=== PATIENT | male | born 1950 | race Caucasian/White ===

== ENCOUNTER 2017-05-11 08:22 | Outpatient (CLI) | payer MEDICARE, MEDICAID ==
--- NOTE | 2017-05-11 15:54 | NM ---
NUCLEAR MEDICINE Suzan SCAN BRAIN: 05/11/17 HISTORY: 67-year-old male with tremor, Parkinsonism. TECHNIQUE: Patient was given p.o. 130 mg of potassium Iodide one hour prior to Ioflupane injection. 4.7 millicur ies of I-123 Ioflupane was injected IV. Axial SPECT images of the brain were obtained. FINDINGS: There is normal, symmetrical uptake in the bilateral striatum, including both caudate nuclei and puta frederic. IMPRESSION: Normal. No evidence of Parkinson's disease. POS: [facility]
== END 2017-05-11 08:23 | disposition home or self-care (01) ==
LOC: NM 08:22
PROVIDERS: ATTEND Psychiatry & Neurology Neurology
DX: G20 Parkinson's disease (principal)
CPT/HCPCS: 78607; A9584

== ENCOUNTER 2017-06-09 21:00 | Emergency (ER) | payer MEDICARE, MEDICAID ==
[2017-06-09 21:40] LABS: #Basophils 0.1 thou/uL (0.0-0.2); #Eosinphils 0.2 thou/uL (0.0-0.7); #Lymphocytes 1.9 thou/uL (1.20-3.40); #Monocytes 0.7 thou/uL (0.11-0.59); #Neutrophils 3.3 thou/uL (1.40-6.50); %Basophils 0.9 % (0.0-1.0); %Eosinophils 3.8 % (0.0-10.0); %Lymphocytes 30.8 % (21.0-51.0); %Monocytes 10.8 % (0.0-10.0); %Neutrophils 53.6 % (42.0-75.0); Hemoglobin 13.4 g/dL (14.0-18.0); Mean Corpuscular HGB CONC 35.4 g/dL (32.0-36.0); Mean Corpuscular Hemoglobin 35.4 pg (27.0-31.0); Mean Platelet Volume 7.8 fL (7.4-10.4); Platelet Count 184 thou/uL (130-400); RBC Distribution Width 12.4 % (11.5-14.5); Red Blood Cell (RBC) Count 3.77 mill/uL (4.70-6.10); White Blood Cell (WBC) Count 6.2 thou/uL (4.8-10.8)
[2017-06-09 22:01] LABS: ALT (SGPT) 11 U/L (8-55); AST (SGOT) 19 U/L (5-34); Albumin 3.5 g/dL (3.4-4.8); Alkaline Phosphatase 92 U/L (40-150); Anion Gap 16 mmol/L (10-20); BUN (Urea Nitrogen) 25 mg/dL (8.4-25.7); Bilirubin, Total 0.3 mg/dL (0.2-1.2); Calc. Creatinine Clearance 0 mL/min (70-130); Calcium 8.8 mg/dL (7.8-10.44); Carbon Dioxide 23 mmol/L (23-31); Chloride 106 mmol/L (98-107); Estimated GFR-MDRD Greater than 90; Globulin 3.4 g/dL (2.4-3.5); Glucose 153 mg/dL (80-115); Lipase 43 U/L (8-78); Potassium 4.5 mmol/L (3.5-5.1); Protein, Total 6.9 g/dL (5.8-8.1); Sodium 140 mmol/L (136-145)
[2017-06-09 22:04] LABS: Troponin I Less than 0.010 ng/mL (< 0.028)
[2017-06-09] MEDS ORDERED: Ondansetron ODT 4 MG TAB ONE (22:32)
[2017-06-09 22:42] LABS: Bilirubin Negative (Negative); Blood, Urine Small (Negative); Clarity CLEAR (Clear); Glucose, Urine (Dipstick) Negative (Negative); Leukocyte Small (Negative); Nitrite Negative (Negative); Protein, Urine (Dipstick) Negative (Neg-Trace); Specific Gravity, Urine 1.017 (1.002-1.036); Urobilinogen 0.2 mg/dL (0.2-1.0)
[2017-06-09 22:44] LABS: Bacteria/HPF None Seen HPF (None Seen); Hyaline Casts/LPF 0-3 HYALINE CAST LPF (0-3 Hyaline); Pathc Cast-AUWi Flag 0.14 (0-2.49); Squamous Epithelial None Seen HPF (0-3)
== END 2017-06-09 23:40 | disposition home or self-care (01) ==
LOC: ERS 21:00
DX: E11.65 Type 2 diabetes mellitus with hyperglycemia (principal); N30.00 Acute cystitis without hematuria; E78.5 Hyperlipidemia, unspecified; I10 Essential (primary) hypertension; K21.9 Gastro-esophageal reflux disease without esophagitis; J45.909 Unspecified asthma, uncomplicated; F41.9 Anxiety disorder, unspecified; F31.9 Bipolar disorder, unspecified; Z86.73 Personal history of transient ischemic attack (TIA), and cerebral infarction without residual deficits
CPT/HCPCS: 36415; 36416; 80053; 81003; 81015; 83690; 84484; 85025; 87077; 87086; 87186; 99285; Q0162

== ENCOUNTER 2017-07-25 08:57 | Outpatient (CLI) | payer MEDICARE, MEDICAID | END 2017-07-25 08:58 | disposition home or self-care (01) | LOC: BICULT 08:57 | PROVIDERS: ATTEND Urology | DX: N31.9 Neuromuscular dysfunction of bladder, unspecified (principal); N28.89 Other specified disorders of kidney and ureter; Z96.0 Presence of urogenital implants | CPT/HCPCS: 76770 ==

== ENCOUNTER 2017-08-29 10:29 | Outpatient (CLI) | payer MEDICARE, MEDICAID ==
[2017-08-29 11:01] LABS: #Basophils 0.1 thou/uL (0.0-0.2); #Eosinphils 0.1 thou/uL (0.0-0.7); #Lymphocytes 1.5 thou/uL (1.20-3.40); #Monocytes 0.5 thou/uL (0.11-0.59); #Neutrophils 4.7 thou/uL (1.40-6.50); %Basophils 0.8 % (0.0-1.0); %Eosinophils 0.9 % (0.0-10.0); %Lymphocytes 22.1 % (21.0-51.0); %Monocytes 7.1 % (0.0-10.0); %Neutrophils 69.1 % (42.0-75.0); Hemoglobin 13.3 g/dL (14.0-18.0); Mean Corpuscular HGB CONC 34.7 g/dL (32.0-36.0); Mean Corpuscular Hemoglobin 33.6 pg (27.0-31.0); Mean Corpuscular Volume 96.9 fL (78.0-98.0); Mean Platelet Volume 6.9 fL (7.4-10.4); Platelet Count 245 thou/uL (130-400); RBC Distribution Width 11.8 % (11.5-14.5); Red Blood Cell (RBC) Count 3.95 mill/uL (4.70-6.10); White Blood Cell (WBC) Count 6.8 thou/uL (4.8-10.8)
[2017-08-29 11:20] LABS: Anion Gap 13 mmol/L (10-20); BUN (Urea Nitrogen) 18 mg/dL (8.4-25.7); Calc. Creatinine Clearance 0 mL/min (70-130); Calcium 9.7 mg/dL (7.8-10.44); Carbon Dioxide 26 mmol/L (23-31); Chloride 103 mmol/L (98-107); Estimated GFR-MDRD Greater than 90; Glucose 182 mg/dL (80-115); Potassium 3.9 mmol/L (3.5-5.1); Sodium 138 mmol/L (136-145)
== END 2017-08-29 10:30 | disposition home or self-care (01) ==
LOC: ULT 10:29 → EKG 10:30
PROVIDERS: ATTEND Urology
DX: N31.9 Neuromuscular dysfunction of bladder, unspecified (principal)
CPT/HCPCS: 80048; 85025; 93005; 93010

== ENCOUNTER 2017-10-11 06:59 | Day surgery (SDC) | payer MEDICARE, MEDICAID ==
[2017-10-11] MEDS ORDERED: Cefepime 1 GM in Sodium Chloride 0.9% 100 ML IVPB SCH (07:45)
[2017-10-11] MEDS ORDERED: Fentanyl 100 MCG/2 ML VIAL ONE (07:57)
[2017-10-11] MEDS ORDERED: Sodium Chloride 0.9% 40 ML ONE (07:57)
[2017-10-11] MEDS ORDERED: HYDROcodone/Acetaminophen 5/325 mg Tablet ONE (09:44)
--- NOTE | 2017-10-11 14:26 | OP ---
DATE OF PROCEDURE: 10/11/2017. PREOPERATIVE DIAGNOSIS: Neurogenic bladder with retention and incontinence. POSTOPERATIVE DIAGNOSIS: Neurogenic bladder with retention and incontinence. PROCEDURE PERFORMED: Cystoscopy with Botox injection 300 units. Change of SPT. SURGEON: Christina Fairbanks M.D. ANESTHESIA: IV sedation. COMPLICATIONS: None. ESTIMATED BLOOD LOSS: Minimal. SPECIMENS: None. FINDINGS: A 300 units placed with 100 units placed in the detrusor itself. Drain remaining from the procedure was change of SP tube: 18 Senegalese two-way. INDICATIONS: The patient is a 67-year-old male who is followed in the office for a neurogenic bladder, already on SP tube when he came to me and was doing well until he had increased leakage. Urodynamics was performed, which revealed a low capacity spontaneously paulie bladder once 100 mL was filled, but he did not have significantly high pressures. Despite being on 30 mg of oxybutynin , he still has significant leakage requiring multiple pads a day, so he was set up for Botox. DESCRIPTION OF PROCEDURE: The patient was brought into the room by Anesthesia, laid on the table in supine position. After receiving IV sedation, his legs were placed in lithotomy and his perineum was prepped and draped in sterile fashion. Using a 17-Senegalese cystoscope, the urethra was traversed and the bladder inspected. The SP tube balloon was noted and the catheter itself was clamped, filling occurred, but not a significant amount was able to be instilled without having some agitation from the patient. A total of 300 units of Botox were used in 3 separate 10 mL syringes. 1 mL of solution was injected under the mucosa at a time. Ten injections were placed in the detrusor and 20 more were placed from left to right along the posterior bladder wall, encompassing the majority of the bladder itself. A 5 mL saline was used to flush the last of the 10 mL in the syringe out and into the submucosa. At this point, the larger cystoscope was placed back in to irrigate the bladder of a small amount of clot. Then it was removed in its entirety. Attention was then turned to the SP tube where it was prepped and removed. An 18 Senegalese Reyna catheter was placed in for the SP tube itself. The patient was then awakened and transferred to PACU in stable condition. [facility]
== END 2017-10-11 10:40 | disposition home or self-care (01) ==
LOC: SDC 06:59
PROVIDERS: ATTEND Urology
PROC: 3E0K8GC Introduction of Other Therapeutic Substance into Genitourinary Tract, Via Natural or Artificial Opening Endoscopic (ICD-10-PCS; principal; 2017-10-11)
DX: N31.9 Neuromuscular dysfunction of bladder, unspecified (principal); N39.498 Other specified urinary incontinence; R33.9 Retention of urine, unspecified; J45.909 Unspecified asthma, uncomplicated; K21.9 Gastro-esophageal reflux disease without esophagitis; F79 Unspecified intellectual disabilities; F41.8 Other specified anxiety disorders; G20 Parkinson's disease; F02.80 Dementia in other diseases classified elsewhere, unspecified severity, without behavioral disturbance, psychotic disturbance, mood disturbance, and anxiety; E11.9 Type 2 diabetes mellitus without complications; Z86.73 Personal history of transient ischemic attack (TIA), and cerebral infarction without residual deficits; Z79.82 Long term (current) use of aspirin; Z79.4 Long term (current) use of insulin; Z79.899 Other long term (current) drug therapy; Z88.0 Allergy status to penicillin
CPT/HCPCS: 52287; J0585; 36416; A4216; J0131; J0692; J3010; J7050

== ENCOUNTER 2017-11-20 19:53 | Emergency (ER) | payer MEDICARE, MEDICAID ==
[~2017-11-20 19:53] MED LIST: ISOVUE-370 76%-LOCM 1 ML ONE
[2017-11-20 20:15] LABS: #Basophils 0.1 thou/uL (0.0-0.2); #Eosinphils 0.1 thou/uL (0.0-0.7); #Monocytes 0.6 thou/uL (0.11-0.59); #Neutrophils 4.9 thou/uL (1.40-6.50); %Basophils 1.1 % (0.0-1.0); %Eosinophils 1.3 % (0.0-10.0); %Lymphocytes 26.1 % (21.0-51.0); %Monocytes 7.2 % (0.0-10.0); %Neutrophils 64.3 % (42.0-75.0); Hemoglobin 13.2 g/dL (14.0-18.0); Mean Corpuscular HGB CONC 32.8 g/dL (32.0-36.0); Mean Corpuscular Hemoglobin 31.6 pg (27.0-31.0); Mean Corpuscular Volume 96.4 fL (78.0-98.0); Mean Platelet Volume 7.3 fL (7.4-10.4); Platelet Count 264 thou/uL (130-400); RBC Distribution Width 12.2 % (11.5-14.5); Red Blood Cell (RBC) Count 4.17 mill/uL (4.70-6.10); White Blood Cell (WBC) Count 7.6 thou/uL (4.8-10.8)
--- NOTE | 2017-11-20 20:21 | CT ---
HEAD CT WITHOUT CONTRAST: 11/20/2017 HISTORY: Stroke protocol. Left-sided weakness. COMPARISON: 03/12/2014 TECHNIQUE: Serial axial CT imaging at 5 mm intervals, from the vertex through the skull base, without contrast. FINDINGS: The imaged paranasal sinuses and mastoid air cells demonstrate hypoplastic, opacified, right-sided ma stoid air cells, a stable finding. No displaced calvarial fracture. No intracranial hemorrhage, mid line shift, mass effect, or ventricular enlargement. IMPRESSION: Stable head CT. No acute findings. Results called to Dr. Orourke at 7:58 p.m. on 11/20/2017. CODE CR POS: [facility]
[2017-11-20 20:24] LABS: PTT 28.5 SEC (22.9-36.1); Prothrombin Time 13.6 SEC (12.0-14.7)
--- NOTE | 2017-11-20 20:27 | CT ---
CT ANGIOGRAM HEAD AND NECK: 11/20/2017 HISTORY: Left-sided weakness. COMPARISON: None. TECHNIQUE: Serial axial CT imaging is obtained at 1.25 mm intervals, from the lung apices through the upper ches t, with IV contrast, using a CT angiogram protocol. Coronal and sagittal 3D reformatted imaging obta ined. FINDINGS: The visualized lung apices appear unremarkable. The retroantral fat and the parapharyngeal fat appears clear bilaterally. There is motion artifact, which limits assessment at the level of the skull base. The parotid and the submandibular glands appear grossly unremarkable. The tonsillar pillars, epiglot tis, pre-epiglottic fat, hyoid bone, thyroid cartilage, cricoid cartilage, and thyroid gland appear u nremarkable. No lymphadenopathy is seen within the neck. There is a bovine arch noted. No hemodynamically significant stenosis is seen at the level of the gr eat vessel origins. Right and left vertebral artery origins appear unremarkable. Bilateral vertebral arteries are unremarkable. No hemodynamically significant stenosis on the basis of NASCET criteria is seen involving the interna l or common carotid artery on either side. Portions of the distal cervical and petrous segment of th e bilateral internal carotid arteries is limited in assessment, secondary to motion artifact. The supraclinoid and cavernous segment of the bilateral internal carotid arteries appears unremarkabl e. The A1 segment, the region of the anterior communicating artery, and the distal LISA branches appear u nremarkable. The M1 segment and the ICA bifurcation appear within normal limits bilaterally. No central arterial occlusion, saccular aneurysm, or high grade stenosis is seen involving the anteri or or posterior circulation. The basilar artery and its branches are patent. Bilateral posterior ce rebral arteries appear patent. Osseous structures demonstrate no acute findings. IMPRESSION: Grossly unremarkable CT angiogram of the head and neck, as detailed above. Results called to Dr. Orourke at 8:20 p.m. on 11/20/2017. CODE CR POS: [facility]
[2017-11-20 20:29] LABS: ALT (SGPT) 14 U/L (8-55); AST (SGOT) 17 U/L (5-34); Alkaline Phosphatase 90 U/L (40-150); Anion Gap 14 mmol/L (10-20); BUN (Urea Nitrogen) 19 mg/dL (8.4-25.7); Bilirubin, Total 0.4 mg/dL (0.2-1.2); Calc. Creatinine Clearance 0 mL/min (70-130); Calcium 9.6 mg/dL (7.8-10.44); Carbon Dioxide 22 mmol/L (23-31); Chloride 105 mmol/L (98-107); Estimated GFR-MDRD Greater than 90; Globulin 2.8 g/dL (2.4-3.5); Glucose 145 mg/dL (80-115); Potassium 4.1 mmol/L (3.5-5.1); Protein, Total 6.8 g/dL (5.8-8.1); Sodium 137 mmol/L (136-145)
[2017-11-20 20:33] LABS: CKMB 1.4 ng/mL (0-6.6); Troponin I Less than 0.010 ng/mL (< 0.028)
--- NOTE | 2017-11-20 21:02 | RAD ---
FRONTAL RADIOGRAPH CHEST: 11/20/2017 HISTORY: Difficulty breathing. COMPARISON: 03/12/2014 FINDINGS: The lungs are clear. The heart and mediastinal contours appear within normal limits. IMPRESSION: No acute findings. POS: [facility]
[2017-11-20] MEDS ORDERED: Morphine 2 MG/ML SYRINGE ONE (21:36)
== END 2017-11-20 22:55 | disposition home or self-care (01) ==
LOC: ERS 19:53
DX: R53.1 Weakness (principal); N40.0 Benign prostatic hyperplasia without lower urinary tract symptoms; E78.5 Hyperlipidemia, unspecified; E11.9 Type 2 diabetes mellitus without complications; I10 Essential (primary) hypertension; K21.9 Gastro-esophageal reflux disease without esophagitis; J45.909 Unspecified asthma, uncomplicated; Z86.73 Personal history of transient ischemic attack (TIA), and cerebral infarction without residual deficits; F41.9 Anxiety disorder, unspecified; F31.9 Bipolar disorder, unspecified
CPT/HCPCS: 36416; 70450; 70496; 70498; 71045; 80053; 82553; 83880; 84484; 85025; 85379; 85610; 85730; 93005; 96360; J2270

== ENCOUNTER 2018-01-20 19:18 | Emergency (ER) | payer MEDICARE, MEDICAID ==
[2018-01-20 20:26] LABS: Anion Gap 11 mmol/L (10-20); BUN (Urea Nitrogen) 16 mg/dL (8.4-25.7); Calc. Creatinine Clearance 0 mL/min (70-130); Calcium 9.6 mg/dL (7.8-10.44); Carbon Dioxide 26 mmol/L (23-31); Chloride 104 mmol/L (98-107); Estimated GFR-MDRD 87; Glucose 121 mg/dL (80-115); Potassium 4.4 mmol/L (3.5-5.1); Sodium 137 mmol/L (136-145)
[2018-01-20 21:49] LABS: Bilirubin Negative (Negative); Blood, Urine Negative (Negative); Clarity CLEAR (Clear); Glucose, Urine (Dipstick) Negative (Negative); Leukocyte Large (Negative); Nitrite Positive (Negative); Protein, Urine (Dipstick) Negative (Neg-Trace); Specific Gravity, Urine 1.003 (1.002-1.036); Urobilinogen 0.2 mg/dL (0.2-1.0); pH, Urine 7.5 (5.0-9.0)
[2018-01-20 21:51] LABS: Bacteria/HPF None Seen HPF (None Seen); Hyaline Casts/LPF 0-3 HYALINE CAST LPF (0-3 Hyaline); RBC/HPF 0-3 HPF (0-3); Squamous Epithelial 0-3 HPF (0-3)
== END 2018-01-20 22:41 | disposition home or self-care (01) ==
LOC: ERS 19:18
DX: T83.9XXA Unspecified complication of genitourinary prosthetic device, implant and graft, initial encounter (principal); L30.9 Dermatitis, unspecified; E78.5 Hyperlipidemia, unspecified; E11.9 Type 2 diabetes mellitus without complications; I10 Essential (primary) hypertension; K21.9 Gastro-esophageal reflux disease without esophagitis; J45.909 Unspecified asthma, uncomplicated; F41.9 Anxiety disorder, unspecified; Z86.73 Personal history of transient ischemic attack (TIA), and cerebral infarction without residual deficits; Z79.82 Long term (current) use of aspirin; Z79.4 Long term (current) use of insulin; Z79.899 Other long term (current) drug therapy
CPT/HCPCS: 36415; 80048; 81003; 81015; 87077; 87086; 87186; 99283

== ENCOUNTER 2018-08-09 14:18 | Emergency (ER) | payer MEDICARE, MEDICAID ==
[2018-08-09 14:51] LABS: Bilirubin Negative (Negative); Blood, Urine Small (Negative); Clarity Clear (Clear); Glucose, Urine (Dipstick) Negative (Negative); Leukocyte Moderate (Negative); Nitrite Positive (Negative); Protein, Urine (Dipstick) Negative (Neg-Trace); Urobilinogen 0.2 mg/dL (0.2-1.0)
[2018-08-09 15:01] LABS: Amphetamine Not Detected (NotDetected); Barbiturates Screen Not Detected (NotDetected); Benzodiazepine Screen Not Detected (NotDetected); Cocaine Metabolite Screen Not Detected (NotDetected); Medtox Control Line Valid? VALID (VALID); Medtox Reader # READER 4; Methadone Not Detected (NotDetected); Methamphetamine Not Detected (NotDetected); Opiate Screen Not Detected (NotDetected); Oxycodone Screen Not Detected (NotDetected); Phencyclidine (PCP) Not Detected (NotDetected); THC/Cannabinoid Screen Not Detected (NotDetected); Tricyclic Screen Not Detected (NotDetected)
--- NOTE | 2018-08-09 15:01 | RAD ---
PORTABLE CHEST 1 VIEW: DATE: 08/09/2018. TIME: 2:46 p.m. History Altered mental status. FINDINGS/IMPRESSION: Comparison is made with the exam of 11/20/2017. The heart size is borderline. The lungs are expanded without lobar consolidation, pneumothoraces, fr ank pulmonary edema, or large effusions. POS: [facility]
[2018-08-09 15:03] LABS: #Basophils 0.1 thou/uL (0.0-0.2); #Eosinphils 0.1 thou/uL (0.0-0.7); #Lymphocytes 1.3 thou/uL (1.20-3.40); #Monocytes 0.5 thou/uL (0.11-0.59); #Neutrophils 3.6 thou/uL (1.40-6.50); %Basophils 0.9 % (0.0-1.0); %Eosinophils 2.3 % (0.0-10.0); %Monocytes 8.6 % (0.0-10.0); %Neutrophils 65.2 % (42.0-75.0); Mean Corpuscular HGB CONC 33.6 g/dL (32.0-36.0); Mean Corpuscular Hemoglobin 32.3 pg (27.0-31.0); Mean Corpuscular Volume 96.2 fL (78.0-98.0); Platelet Count 225 thou/uL (130-400); RBC Distribution Width 12.2 % (11.5-14.5); Red Blood Cell (RBC) Count 3.72 mill/uL (4.70-6.10); White Blood Cell (WBC) Count 5.6 thou/uL (4.8-10.8)
[2018-08-09 15:08] LABS: Bacteria/HPF 4+ HPF (None Seen); Hyaline Casts/LPF 0-3 HYALINE CAST LPF (0-3 Hyaline); Squamous Epithelial 0-3 HPF (0-3)
[2018-08-09] MEDS ORDERED: Ondansetron PF 4 MG/2 ML Vial ONE (15:09)
[2018-08-09 15:23] LABS: Acetaminophen Less than 6.0 mcg/mL (10.0-30.0); Alcohol Less than 10 mg/dL (Less than 10); Salicylate Less than 8.0 mg/dL (15.0-30.0)
[2018-08-09 15:25] LABS: ALT (SGPT) 16 U/L (8-55); AST (SGOT) 20 U/L (5-34); Albumin 3.7 g/dL (3.4-4.8); Alkaline Phosphatase 94 U/L (40-150); Anion Gap 9 mmol/L (10-20); BUN (Urea Nitrogen) 17 mg/dL (8.4-25.7); Bilirubin, Total 0.4 mg/dL (0.2-1.2); CK (CPK) 168 U/L (30-200); Calc. Creatinine Clearance 0 mL/min (70-130); Calcium 8.9 mg/dL (7.8-10.44); Carbon Dioxide 29 mmol/L (23-31); Chloride 108 mmol/L (98-107); Estimated GFR-MDRD Greater than 90; Globulin 2.6 g/dL (2.4-3.5); Glucose 114 mg/dL (80-115); Lipase 41 U/L (8-78); Potassium 3.7 mmol/L (3.5-5.1); Protein, Total 6.3 g/dL (5.8-8.1); Sodium 142 mmol/L (136-145)
--- NOTE | 2018-08-11 12:56 | EKG ---
Test Reason : AMS Blood Pressure : / mmHG Vent. Rate : 087 BPM Atrial Rate : 087 BPM P-R Int : 146 ms QRS Dur : 086 ms QT Int : 388 ms P-R-T Axes : 049 058 038 degrees QTc Int : 466 ms Normal sinus rhythm Normal ECG Confirmed by NIRMALA KIDD, TERRELL ([id number]), state editor LAURIE BOWEN ([id number]) on 08/11/2018 12:56:07 PM Referred By: Confirmed By:TERRELL SILVESTRE MD
== END 2018-08-09 15:50 | disposition home or self-care (01) ==
LOC: ERS 14:18
DX: E86.0 Dehydration (principal); R55 Syncope and collapse; N39.0 Urinary tract infection, site not specified; E78.5 Hyperlipidemia, unspecified; E11.9 Type 2 diabetes mellitus without complications; I10 Essential (primary) hypertension; J45.909 Unspecified asthma, uncomplicated; K21.9 Gastro-esophageal reflux disease without esophagitis; Z86.73 Personal history of transient ischemic attack (TIA), and cerebral infarction without residual deficits; Z79.82 Long term (current) use of aspirin; Z79.899 Other long term (current) drug therapy; Z79.4 Long term (current) use of insulin
CPT/HCPCS: 36415; 71045; 80053; 80306; 80307; 81003; 81015; 82010; 82140; 82550; 83690; 83880; 84484; 85025; 87077; 87086; 87186; 93005; 96361; 96374; J2405

== ENCOUNTER 2018-09-26 14:06 | Outpatient (CLI) | payer MEDICARE, MEDICAID ==
[2018-09-26 16:32] LABS: Mean Corpuscular HGB CONC 34.1 g/dL (32.0-36.0); Mean Corpuscular Hemoglobin 32.9 pg (27.0-31.0); Mean Corpuscular Volume 96.3 fL (78.0-98.0); Mean Platelet Volume 7.3 fL (7.4-10.4); Platelet Count 250 thou/uL (130-400); RBC Distribution Width 12.2 % (11.5-14.5); Red Blood Cell (RBC) Count 3.96 mill/uL (4.70-6.10); White Blood Cell (WBC) Count 7.9 thou/uL (4.8-10.8)
[2018-09-26 16:33] LABS: Prothrombin Time 13.5 SEC (12.0-14.7)
[2018-09-26 16:34] LABS: PTT 29.3 SEC (22.9-36.1)
[2018-09-26 16:48] LABS: Anion Gap 12 mmol/L (10-20); BUN (Urea Nitrogen) 23 mg/dL (8.4-25.7); Calc. Creatinine Clearance 0 mL/min (70-130); Calcium 9.3 mg/dL (7.8-10.44); Carbon Dioxide 28 mmol/L (23-31); Chloride 105 mmol/L (98-107); Estimated GFR-MDRD 86; Glucose 109 mg/dL (80-115); Sodium 141 mmol/L (136-145)
== END 2018-09-26 14:07 | disposition home or self-care (01) ==
LOC: LABBT 14:06
PROVIDERS: ATTEND Urology
DX: Z01.812 Encounter for preprocedural laboratory examination (principal); N39.45 Continuous leakage; N40.1 Benign prostatic hyperplasia with lower urinary tract symptoms; N31.9 Neuromuscular dysfunction of bladder, unspecified
CPT/HCPCS: 80048; 85027; 85610; 85730

== ENCOUNTER 2018-11-21 14:20 | Outpatient (CLI) | payer MEDICARE, MEDICAID ==
--- NOTE | 2018-11-21 15:21 | CT ---
Exam: CT INTERNAL AUDITORY CANALS WITHOUT CONTRAST: HISTORY: Right ear hearing loss. Cholesteatoma. COMPARISON: None. FINDINGS: Visualized brain parenchyma is grossly unremarkable. Visualized orbits are unremarkable Adequate aeration of visualized paranasal sinuses. Visualized upper aerodigestive tract is unremarkable. Right IAC/temporal bone: The internal auditory canal, cochlea, vestibule and semicircular canals have an appropriate appearance and configuration. The vestibular aqueduct is difficult to appreciate but does not appear to be enlarged. There is sclerosis of the right temporal bone with decreased aera gordo mastoid air cells. Sclerosis and decreased mastoid air cells are likely due to remote/chronic infection. Residual air cells in the right temporal bone are opacified. There is near complete opacif ication of the middle ear. Normal-appearing malleus and incus are not appreciated. Stapedial footplate appears to be in the correct location but there may be an erosive component. There is opaci fication of the epitympanum. Abnormal hypodensity in Prussak's space with blunting of the scutum. There is dehiscence versus demineralization of the tegmen tympani and tegmen mastoideum. There is thi ckening and retraction of the tympanic membrane. External auditory canal is patent. Left IAC/temporal bone: The internal auditory canal, cochlea, vestibule and semicircular canals have an appropriate appearance and configuration. Vestibular aqueduct is difficult to appreciate but does not appear to be enlarged. Adequate aeration of the middle ear. Ossicular chain is intact. A sta pedial footplate is appropriately located. Tegmen tympani and tegmen mastoideum are intact. Scutum is sharp. No abnormal hypodensity in Prussak's space. There is some sclerosis of the left temporal omari ne with partial opacification of the residual mastoid air cells. Slight retraction of the tympanic membrane. External auditory canal is patent. IMPRESSION: 1. Significant opacification of the right middle ear with dehiscence/demineralization of the tegmen t ympani and tegmen mastoideum. 2. Abnormal appearance of the right ossicular chain, likely due to remote bouts of infection/inflamma tion. Correlate for possible conductive hearing loss. 3. Right greater the left tympanic membrane thickening and retraction. Transcribed Date/Time: 11/21/2018 3:31 PM
== END 2018-11-21 14:21 | disposition home or self-care (01) ==
LOC: BICCT 14:20
PROVIDERS: ATTEND Specialist
DX: H71.90 Unspecified cholesteatoma, unspecified ear (principal); H74.8X1 Other specified disorders of right middle ear and mastoid; H73.893 Other specified disorders of tympanic membrane, bilateral
CPT/HCPCS: 70480

== ENCOUNTER 2019-03-08 18:18 | Emergency (ER) | payer MEDICARE, MEDICAID ==
[2019-03-08 19:54] LABS: Bacteria/HPF 4+ HPF (None Seen); Bilirubin Negative (Negative); Blood, Urine 2+ (Negative); Clarity Extra Turbid (Clear); Glucose, Urine (Dipstick) Greater than 1000 mg/dL (Negative); Leukocyte 500 Leu/uL (Negative); Nitrite 2+ (Negative); Protein, Urine (Dipstick) 300 mg/dL (Neg-Trace); RBC/HPF Greater than 50 HPF (0-3); Squamous Epithelial 0-3 HPF (0-3); Urobilinogen Normal mg/dL (Less than 2)
[2019-03-08 20:03] LABS: #Basophils 0.1 thou/uL (0.0-0.2); #Lymphocytes 1.6 thou/uL (1.20-3.40); #Monocytes 0.8 thou/uL (0.11-0.59); #Neutrophils 6.3 thou/uL (1.40-6.50); %Basophils 1.1 % (0.0-1.0); %Eosinophils 0.4 % (0.0-10.0); %Monocytes 8.9 % (0.0-10.0); %Neutrophils 71.6 % (42.0-75.0); Hemoglobin 13.8 g/dL (14.0-18.0); Mean Corpuscular HGB CONC 34.4 g/dL (32.0-36.0); Mean Corpuscular Hemoglobin 32.7 pg (27.0-31.0); Mean Platelet Volume 7.1 fL (7.4-10.4); Platelet Count 284 thou/uL (130-400); RBC Distribution Width 11.5 % (11.5-14.5); Red Blood Cell (RBC) Count 4.22 mill/uL (4.70-6.10); White Blood Cell (WBC) Count 8.7 thou/uL (4.8-10.8)
[2019-03-08 20:05] LABS: Triple Phosphate Crystal 2+ HPF (None Seen)
[2019-03-08 20:25] LABS: ALT (SGPT) 13 U/L (8-55); AST (SGOT) 17 U/L (5-34); Albumin 4.2 g/dL (3.4-4.8); Alkaline Phosphatase 99 U/L (40-110); Anion Gap 16 mmol/L (10-20); BUN (Urea Nitrogen) 26 mg/dL (8.4-25.7); Bilirubin, Total 0.4 mg/dL (0.2-1.2); Calc. Creatinine Clearance 0 mL/min (70-130); Calcium 9.3 mg/dL (7.8-10.44); Carbon Dioxide 22 mmol/L (23-31); Chloride 104 mmol/L (98-107); Estimated GFR-MDRD 73; Glucose 263 mg/dL (80-115); Potassium 3.9 mmol/L (3.5-5.1); Protein, Total 7.2 g/dL (5.8-8.1); Sodium 138 mmol/L (136-145)
[2019-03-08] MEDS ORDERED: Lidocaine 1% PF 5 ML VIAL ONE (20:25)
[2019-03-08] MEDS ORDERED: cefTRIAXone\\ROCEPHIN 1 GM VIAL ONE (20:25)
== END 2019-03-08 20:40 | disposition home or self-care (01) ==
LOC: ERS 18:18
DX: T83.511A Infection and inflammatory reaction due to indwelling urethral catheter, initial encounter (principal); E78.5 Hyperlipidemia, unspecified; E78.00 Pure hypercholesterolemia, unspecified; E11.9 Type 2 diabetes mellitus without complications; I10 Essential (primary) hypertension; K21.9 Gastro-esophageal reflux disease without esophagitis; J45.909 Unspecified asthma, uncomplicated; Z86.73 Personal history of transient ischemic attack (TIA), and cerebral infarction without residual deficits
CPT/HCPCS: 36415; 36416; 80053; 81003; 81015; 85025; 87077; 87086; 87186; 96372; 99284; J0696; J2001

== ENCOUNTER 2019-06-20 14:17 | Outpatient (CLI) | payer MEDICARE, MEDICAID ==
--- NOTE | 2019-06-20 14:53 | RAD ---
Chest one view Abdomen 2 views HISTORY: Chest and abdomen pain. FINDINGS: Cardiac silhouette is magnified by projection. Pulmonary vasculature is unremarkable. Mediastinum is midline with aortic calcification. No confluent airspace consolidation or evidence of free subdiaphragmatic gas. Large amount of stool overlies the right colon. No differential air-fluid levels or evidence of free subdiaphragmatic gas. IMPRESSION : Constipation. No evidence of bowel obstruction. Atherosclerosis.
== END 2019-06-20 14:18 | disposition home or self-care (01) ==
LOC: BICRAD 14:17
PROVIDERS: ATTEND Family Medicine
DX: R10.32 Left lower quadrant pain (principal); R41.0 Disorientation, unspecified; T50.905A Adverse effect of unspecified drugs, medicaments and biological substances, initial encounter; K59.00 Constipation, unspecified; I70.0 Atherosclerosis of aorta
CPT/HCPCS: 74022

== ENCOUNTER 2019-06-22 09:10 | Inpatient (IN) | payer MEDICARE, MEDICAID ==
[2019-06-22] MEDS ORDERED: Iopamidol-370 76% 500 ML 1 ML ONE (09:53)
[2019-06-22] MEDS ORDERED: Bacitracin 1 PK ONE (10:14)
[2019-06-22 10:19] LABS: #Eosinphils 0.1 thou/uL (0.0-0.7); #Lymphocytes 1.4 thou/uL (1.20-3.40); #Monocytes 0.4 thou/uL (0.11-0.59); %Basophils 0.6 % (0.0-1.0); %Monocytes 7.3 % (0.0-10.0); %Neutrophils 67.1 % (42.0-75.0); Hemoglobin 13.4 g/dL (14.0-18.0); Mean Corpuscular HGB CONC 31.9 g/dL (32.0-36.0); Mean Corpuscular Hemoglobin 32.1 pg (27.0-31.0); Mean Platelet Volume 7.6 fL (7.4-10.4); Platelet Count 238 thou/uL (130-400); RBC Distribution Width 12.3 % (11.5-14.5); Red Blood Cell (RBC) Count 4.18 mill/uL (4.70-6.10); White Blood Cell (WBC) Count 5.9 thou/uL (4.8-10.8)
--- NOTE | 2019-06-22 10:32 | RAD ---
PORTABLE CHEST 1 VIEW: Date: 06/22/2019 Time: 0950 hours HISTORY: Abdominal pain. FINDINGS: Comparison made with exam of 06/20/2019. The heart size is normal. The aorta is tortuous. The lungs are well expanded without lobar consolidat ion, pneumothoraces, or pleural effusions. IMPRESSION: No acute process. POS: [facility]
[2019-06-22 10:33] LABS: ALT (SGPT) 11 U/L (8-55); AST (SGOT) 14 U/L (5-34); Alkaline Phosphatase 86 U/L (40-110); Anion Gap 14 mmol/L (10-20); BUN (Urea Nitrogen) 12 mg/dL (8.4-25.7); Bilirubin, Total 0.4 mg/dL (0.2-1.2); Calc. Creatinine Clearance 0 mL/min (70-130); Calcium 9.1 mg/dL (7.8-10.44); Carbon Dioxide 22 mmol/L (23-31); Chloride 106 mmol/L (98-107); Estimated GFR-MDRD Greater than 90; Globulin 2.8 g/dL (2.4-3.5); Glucose 92 mg/dL (80-115); Potassium 4.3 mmol/L (3.5-5.1); Protein, Total 6.8 g/dL (5.8-8.1); Sodium 138 mmol/L (136-145)
[2019-06-22 12:17] LABS: Bilirubin Negative (Negative); Blood, Urine Small (Negative); Glucose, Urine (Dipstick) Negative (Negative); Leukocyte Large (Negative); Nitrite Positive (Negative); Protein, Urine (Dipstick) Negative (Neg-Trace); Urobilinogen 0.2 mg/dL (Less than 2)
[2019-06-22 12:18] LABS: Clarity Hazy (Clear)
[2019-06-22 12:31] LABS: Bacteria/HPF 3+ HPF (None Seen); Squamous Epithelial 0-3 HPF (0-3); WBC/HPF 21-50 HPF (0-3)
[2019-06-22] MEDS ORDERED: Vancomycin 1 GM/200 ML BAG ONE (12:47)
--- NOTE | 2019-06-22 13:07 | CT ---
CT ABDOMEN AND PELVIS WITH IV CONTRAST: Date: 06/22/2019 PROVIDED CLINICAL HISTORY: Constipation. FINDINGS: The visualized lung bases are free of significant opacity. Comparison is made with the study dated . The solid abdominal organs demonstrate a normal CT appearance. There is conspicuous colonic fecal retention. There is no evidence for bowel obstruction. No free flu id, free air, or inflammatory fat stranding evident. Suprapubic catheter is again noted within the ur inary bladder, with apparent urinary bladder wall thickening, which may be on the basis of nondistent ion. Scattered vascular calcifications are seen. The osseous structures demonstrate no concerning lyt ic or blastic lesions. IMPRESSION: 1. Conspicuous colonic fecal retention suggesting constipation. 2. Nonspecific urinary bladder wall thickening. Correlate with concerns for cystitis. POS: [facility]
--- NOTE | 2019-06-22 15:14 | PDOC.HHP ---
Hospitalist HPI - History of Present Illness Constipation History of Present Illness: This patient is a 69-year-old male with a history of a developmental disorder. Patient presented to the emergency department. This patient has a history of a developmental delay. His cousin who is his M POA is also his caregiver. She reports that the patient was here 4 months ago with similar symptoms of constipation and abdominal pain. At that time he was started on lactulose twice daily. Since that time he continues to have fairly small firm bowel movements. She reports that he is actually been experiencing some abdominal pain and distention since yesterday. In the past admission it appears as though the constipation was causing some issues of urinary obstruction and hydronephrosis. On this occasion the patient presented to his PCP who has some concerns that there may be some obstruction of the colon causing the constipation issues. He recommended the patient come here for admission. It does not appear that the lactulose has been significantly effective. It is also reported that the patient awoke with a small abscess on the dorsum of his left middle finger. This was at the proximal phalanx. Since that time he has had an extension of erythema extending over the dorsum of the hand. Hospitalist ROS - Review of Systems Constitutional: denies: fever, chills ENT: reports: ear discharge (Right) Gastrointestinal: reports: abdominal pain, constipation. denies: nausea, vomiting All other systems reviewed; all pertinent +/- noted in HPI/Subj Hospitalist History - Past Medical History Psych: reports: Bipolar Musculoskeletal: reports: Chronic low back pain Renal/: reports: Benign prostatic enlarg. Endocrine: reports: Diabetes - Past Surgical History Past Surgical History: reports: Other - Social History Smoking Status: Never smoker Alcohol: reports: None Drugs: reports: none Living Situation: With Family Activity level: uses cane/walker - Exam General Appearance: NAD, awake alert General - other findings: Pleasant and cooperative with the exam. Heart: RRR, no murmur, no gallops, no rubs, normal peripheral pulses Respiratory: CTAB, no wheezes, no rales, no ronchi, normal chest expansion, no tachypnea, normal percussion Gastrointestinal: soft, normal bowel sounds, no palpable masses, tender to palpation (Mid abdomen.), distended Gastrointestinal - other findings: Suprapubic catheter is in place. Appears healthy. Extremities: no cyanosis, no clubbing, no edema Skin: normal turgor Musculoskeletal: normal tone Psychiatric: normal affect Hospitalist Results - Labs Result Diagrams: 06/22/19 10:04 06/22/19 10:04 Lab results: WBC 5.9 thou/uL (4.8-10.8) 06/22/19 10:04 Hgb 13.4 g/dL (14.0-18.0) L 06/22/19 10:04 Hct 42.1 % (42.0-52.0) 06/22/19 10:04 MCV 101.0 fL (78.0-98.0) H 06/22/19 10:04 Plt Count 238 thou/uL (130-400) 06/22/19 10:04 Neutrophils % 67.1 % (42.0-75.0) 06/22/19 10:04 Sodium 138 mmol/L (136-145) 06/22/19 10:04 Potassium 4.3 mmol/L (3.5-5.1) 06/22/19 10:04 Chloride 106 mmol/L (98-107) 06/22/19 10:04 Carbon Dioxide 22 mmol/L (23-31) L 06/22/19 10:04 BUN 12 mg/dL (8.4-25.7) 06/22/19 10:04 Creatinine 0.75 mg/dL (0.7-1.3) 06/22/19 10:04 Glucose 92 mg/dL (80-115) 06/22/19 10:04 Lactic Acid 1.0 mmol/L (0.5-2.2) 06/22/19 10:04 Calcium 9.1 mg/dL (7.8-10.44) 06/22/19 10:04 Total Bilirubin 0.4 mg/dL (0.2-1.2) 06/22/19 10:04 AST 14 U/L (5-34) 06/22/19 10:04 ALT 11 U/L (8-55) 06/22/19 10:04 Alkaline Phosphatase 86 U/L (40-110) 06/22/19 10:04 Serum Total Protein 6.8 g/dL (5.8-8.1) 06/22/19 10:04 Albumin 4.0 g/dL (3.4-4.8) 06/22/19 10:04 Urine Ketones Negative mg/dL (Negative) 06/22/19 12:00 Urine Blood Small (Negative) A 06/22/19 12:00 Urine Nitrite Positive (Negative) A 06/22/19 12:00 Ur Leukocyte Esterase Large (Negative) H 06/22/19 12:00 Urine RBC 4-6 HPF (0-3) A 06/22/19 12:00 Urine WBC 21-50 HPF (0-3) A 06/22/19 12:00 Ur Squamous Epith Cells 0-3 HPF (0-3) 06/22/19 12:00 Urine Bacteria 3+ HPF (None Seen) A 06/22/19 12:00 Hospitalist H&P A/P - Problem (1) Abdominal pain Code(s): R10.9 - UNSPECIFIED ABDOMINAL PAIN Status: Acute Qualifiers: Abdominal location: generalized Qualified Code(s): R10.84 - Generalized abdominal pain (2) Constipation Code(s): K59.00 - CONSTIPATION, UNSPECIFIED Status: Acute Qualifiers: Constipation type: slow transit constipation Qualified Code(s): K59.01 - Slow transit constipation (3) Abscess of finger of left hand Code(s): L02.512 - CUTANEOUS ABSCESS OF LEFT HAND Status: Acute (4) Diabetes Code(s): E11.9 - TYPE 2 DIABETES MELLITUS WITHOUT COMPLICATIONS Status: Acute Qualifiers: Diabetes mellitus type: type 2 Diabetes mellitus complication status: without complication (5) BPH (benign prostatic hyperplasia) Code(s): N40.0 - BENIGN PROSTATIC HYPERPLASIA WITHOUT LOWER URINRY TRACT SYMP Status: Chronic Qualifiers: Lower urinary tract symptom detail: urinary obstruction (6) GERD (gastroesophageal reflux disease) Code(s): K21.9 - GASTRO-ESOPHAGEAL REFLUX DISEASE WITHOUT ESOPHAGITIS Status: Chronic Qualifiers: Esophagitis presence: without esophagitis Qualified Code(s): K21.9 - Gastro -esophageal reflux disease without esophagitis (7) HTN (hypertension) Code(s): I10 - ESSENTIAL (PRIMARY) HYPERTENSION Status: Chronic Qualifiers: Hypertension type: essential hypertension Qualified Code(s): I10 - Essential (primary) hypertension (8) Dysphagia Code(s): R13.10 - DYSPHAGIA, UNSPECIFIED Status: Chronic - Plan Plan: Abdominal pain: Appears to be purely related to the patient's constipation. Constipation: We will give the patient a GoLYTELY prep with one 8 ounce glass every hour until he has a substantial bowel movement. This appears to be related to the patient's slow transit. He did not have a significant response with the lactulose. Suspect we will need to increase the dose significantly. His caregiver indicates that he has used MiraLAX in the past with no success. There is some concern that there could be an obstructive process although it does not appear so at that time. Sounds like the patient's primary care provider requested consultation with GI. We will go ahead and make that consultation based on that. Abscess left finger: Patient has an abscess on the left middle finger. This appears to have started with some folliculitis and now has some cellulitic jacquard loom card changer the dorsum of the hand. Will start clindamycin as the patient is allergic to penicillin. Will ask hand surgery to see the patient as well. BPH with obstruction: Patient has a suprapubic catheter. At this point it appears to be functioning normally. Diabetes: Resume home medication regimen once established. Hypertension: Usual home medications. Chronic dysphagia: Patient is on a regular diet with nectar thick liquids, pured foods, and crushed medications.
[2019-06-22] MEDS ORDERED: GoLYTELY 4,000 ml Bottle PO SCH (16:15)
[2019-06-22] MEDS: Famotidine 20 MG TAB PO SCH (21:07)
[2019-06-22] MEDS: Clindamycin/D5W 900 MG in Premix Bag 1 BAG IVPB SCH (21:09)
[2019-06-23] MEDS: Acetaminophen 325 MG TAB PO PRN ×2 (00:32→09:51)
[2019-06-23] MEDS: Clindamycin/D5W 900 MG in Premix Bag 1 BAG IVPB SCH ×3 (05:45→21:25)
[2019-06-23] MEDS: Famotidine 20 MG TAB PO SCH ×2 (08:51→21:23)
[2019-06-23 14:07] LABS: #Basophils 0.1 thou/uL (0.0-0.2); #Eosinphils 0.2 thou/uL (0.0-0.7); #Monocytes 0.5 thou/uL (0.11-0.59); #Neutrophils 2.7 thou/uL (1.40-6.50); %Basophils 1.3 % (0.0-1.0); %Eosinophils 4.5 % (0.0-10.0); %Lymphocytes 35.8 % (21.0-51.0); %Monocytes 9.5 % (0.0-10.0); %Neutrophils 48.9 % (42.0-75.0); Hemoglobin 13.3 g/dL (14.0-18.0); Mean Corpuscular HGB CONC 33.3 g/dL (32.0-36.0); Mean Corpuscular Hemoglobin 33.2 pg (27.0-31.0); Mean Corpuscular Volume 99.7 fL (78.0-98.0); Mean Platelet Volume 8.5 fL (7.4-10.4); Platelet Count 234 thou/uL (130-400); RBC Distribution Width 12.4 % (11.5-14.5); Red Blood Cell (RBC) Count 4.01 mill/uL (4.70-6.10); White Blood Cell (WBC) Count 5.5 thou/uL (4.8-10.8)
[2019-06-23] MEDS ORDERED: Dextrose 50% Abboject 50 ML SYRINGE SLOW IVP PRN (16:13)
[2019-06-23] MEDS ORDERED: Dextrose 5% in Water 1,000 ML IV PRN (16:13)
[2019-06-23] MEDS ORDERED: Insulin Regular 300 UNITS/3 ML VIAL SC PRN ×2 (16:13)
--- NOTE | 2019-06-23 16:15 | PDOC.HOSPP ---
- Subjective Encounter Date: 06/23/19 Encounter Time: 16:15 Subjective: Patient seen and examined for Constipation/finger abscess. Abd pain improving. No N/V. No other complaints. No overnight events - Objective Vital Signs & Weight: Vital Signs (12 hours) Temp Pulse Resp BP BP Pulse Ox 06/23/19 15:00 97.7 F 56 L 18 97/60 99 06/23/19 13:00 97.7 F 56 L 18 97/60 99 06/23/19 12:00 97.7 F 56 L 18 97/60 99 06/23/19 11:39 97.7 F 56 L 16 97/60 06/23/19 11:05 97.7 F 56 L 18 97/60 99 06/23/19 10:20 97.5 F L 65 18 106/64 99 06/23/19 09:45 97.5 F L 65 18 106/64 99 06/23/19 08:35 97.5 F L 65 18 106/64 99 06/23/19 08:00 99 06/23/19 07:27 97.5 F L 65 16 106/64 99 06/23/19 07:05 97.5 F L 65 18 106/64 99 Weight Weight 128 lb I&O: 06/22/19 06/23/19 06/24/19 06:59 06:59 06:59 Intake Total 1100 600 Output Total 740 900 Balance 360 -300 Result Diagrams: 06/23/19 13:51 06/22/19 10:04 Additional Labs: Accuchecks 06/23/19 06/23/19 06/22/19 12:04 04:25 20:08 POC Glucose 118 H 88 105 Hospitalist ROS - Review of Systems Respiratory: denies: cough, dry, shortness of breath, hemoptysis, SOB with excertion, pleuritic pain, sputum, wheezing, other Cardiovascular: denies: chest pain, palpitations, orthopnea, paroxysmal noc. dyspnea, edema, light headedness, other - Medication Medications: Active Medications Generic Name Dose Route Start Last Admin Trade Name Freq PRN Reason Stop Dose Admin Acetaminophen 650 mg 06/22/19 16:05 06/23/19 09:51 Tylenol PO 650 mg Q4H PRN Administration Headache/Fever/Mild Pain (1-3) Famotidine 20 mg 06/22/19 21:00 06/23/19 08:51 Pepcid PO 20 mg BID IRVING Administration Clindamycin Phosphate/Dextrose 50 mls @ 100 mls/hr 06/22/19 22:00 06/23/19 13 :10 900 mg/ Device IVPB 50 mls Q8HR IRVING Administration - Exam General Appearance: NAD Neck: supple, no JVD Heart: RRR, no gallops, no rubs Respiratory: no wheezes, no rales, no ronchi Gastrointestinal: soft, non-distended, no guarding, no rigidity Gastrointestinal - other findings: mild gen tender, suprapubic catheter Extremities: no cyanosis, no clubbing Hosp A/P - Plan Abdominal pain prob due to significant constipation s/p Golytely Left finger abscess BPH/Chronic urinary retetnion s/p suprapubic catheter HTN DM2 Swallow dysfunction on modified diet Macrocytic anemia PCN allergy PLAN: Await Hand Surg input Cont IV Clindamycin Restart selected home meds Add Probiotics Add sliding scale Hold Losartan due to relative hypotension Add Folic acid/Vit B12 Cont other meds as above Full code DPAThien - [place] per facesheet Family aware DC planning
[2019-06-23 16:48] VITALS: BMI 29.6
[2019-06-23] MEDS ORDERED: Sodium Chloride 0.9% 1,000 ML IV SCH (20:15)
[2019-06-23] MEDS: Saccharomyces boulardii 250 MG CAP PO SCH (21:23)
[2019-06-23] MEDS: Montelukast Sodium 10 mg Tablet PO SCH (21:24)
[2019-06-23] MEDS: Atorvastatin Calcium 40 MG TAB PO SCH (21:24)
[2019-06-23] MEDS: Senokot S 8.6-50 MG TAB PO SCH (21:24)
[2019-06-23] MEDS: traZODone HCl 50 MG TAB PO SCH (21:29)
[2019-06-24] MEDS: Clindamycin/D5W 900 MG in Premix Bag 1 BAG IVPB SCH ×3 (05:06→21:24)
[2019-06-24 05:55] LABS: #Basophils 0.1 thou/uL (0.0-0.2); #Eosinphils 0.2 thou/uL (0.0-0.7); #Lymphocytes 2.3 thou/uL (1.20-3.40); #Monocytes 0.6 thou/uL (0.11-0.59); #Neutrophils 2.2 thou/uL (1.40-6.50); %Basophils 1.6 % (0.0-1.0); %Eosinophils 3.5 % (0.0-10.0); %Lymphocytes 43.5 % (21.0-51.0); %Monocytes 10.2 % (0.0-10.0); %Neutrophils 41.2 % (42.0-75.0); Hemoglobin 12.6 g/dL (14.0-18.0); Mean Corpuscular HGB CONC 33.5 g/dL (32.0-36.0); Mean Corpuscular Volume 98.6 fL (78.0-98.0); Mean Platelet Volume 8.2 fL (7.4-10.4); Platelet Count 214 thou/uL (130-400); RBC Distribution Width 12.5 % (11.5-14.5); Red Blood Cell (RBC) Count 3.83 mill/uL (4.70-6.10); White Blood Cell (WBC) Count 5.4 thou/uL (4.8-10.8)
[2019-06-24 06:07] LABS: Anion Gap 12 mmol/L (10-20); BUN (Urea Nitrogen) 15 mg/dL (8.4-25.7); Calc. Creatinine Clearance 75 mL/min (70-130); Calcium 8.4 mg/dL (7.8-10.44); Carbon Dioxide 22 mmol/L (23-31); Chloride 109 mmol/L (98-107); Estimated GFR-MDRD Greater than 90; Glucose 105 mg/dL (80-115); Magnesium 2.1 mg/dL (1.6-2.6); Potassium 4.5 mmol/L (3.5-5.1); Sodium 138 mmol/L (136-145)
[2019-06-24] MEDS ORDERED: Midazolam HCl 2 mg/2 ml Vial ONE (07:22)
[2019-06-24] MEDS ORDERED: Fentanyl 100 MCG/2 ML VIAL ONE (07:22)
[2019-06-24] MEDS ORDERED: Sodium Chloride 0.9% 0 ML ONE (07:31)
[2019-06-24] MEDS ORDERED: Ondansetron HCl/PF 4 MG/2 ML Vial IVP PRN (07:31)
[2019-06-24] MEDS ORDERED: Bupivacaine PF 0.5% 30 ML VIAL ONE (07:31)
[2019-06-24] MEDS ORDERED: Bacitracin Zinc Ointment 30 gm TUBE ONE (07:31)
[2019-06-24] MEDS: Senokot S 8.6-50 MG TAB PO SCH ×2 (08:17→21:24)
[2019-06-24] MEDS: Multivit, Therapeutic 1 TAB PO SCH (08:17)
[2019-06-24] MEDS: Folic Acid 1 MG TAB PO SCH (08:17)
[2019-06-24] MEDS: Cyanocobalamin (Vitamin B-12) 1,000 MCG TAB PO SCH (08:17)
[2019-06-24] MEDS: Aspirin Chewable 81 MG TAB PO SCH (08:17)
[2019-06-24] MEDS: Famotidine 20 MG TAB PO SCH ×2 (08:17→21:22)
[2019-06-24] MEDS ORDERED: Propofol 500 MG/50 ML VIAL ONE (08:34)
[2019-06-24] MEDS ORDERED: Oxybutynin ER 5 MG TAB PO SCH (09:00)
[2019-06-24] MEDS ORDERED: Cyanocobalamin (Vitamin B-12) 1,000 MCG TAB PO SCH (09:00)
[2019-06-24] MEDS ORDERED: Losartan 25 MG TAB PO SCH (09:00)
[2019-06-24] MEDS ORDERED: Morphine 2 MG/ML SYRINGE SLOW IVP PRN (10:41)
[2019-06-24] MEDS ORDERED: Ondansetron PF 4 MG/2 ML Vial SLOW IVP PRN (10:42)
[2019-06-24] MEDS ORDERED: PROPOFOL 200 MG/20 ML VIAL ONE (12:18)
[2019-06-24] MEDS ORDERED: Lidocaine 1% PF 5 ML VIAL ONE (12:18)
--- NOTE | 2019-06-24 13:30 | PDOC.HOSPP ---
- Subjective Encounter Date: 06/24/19 Encounter Time: 11:00 Subjective: Patient seen and examined for constipation/finger abscess. s/o I&D today. Pain . No other complaints. No overnight events - Objective Vital Signs & Weight: Vital Signs (12 hours) Temp Pulse Resp BP BP BP Pulse Ox 06/24/19 12:15 47 L 18 123/63 06/24/19 11:31 97.6 F 50 L 16 108/69 99 06/24/19 11:15 47 L 101/56 L 06/24/19 10:45 46 L 114/67 06/24/19 10:15 97.5 F L 50 L 16 113/64 113/64 96 06/24/19 09:00 98.3 F 50 L 18 112/72 99 06/24/19 08:00 98.3 F 50 L 18 112/72 99 06/24/19 04:00 97.6 F 55 L 18 104/67 97 Weight Weight 128 lb 0.006 oz I&O: 06/23/19 06/24/19 06/25/19 06:59 06:59 06:59 Intake Total 1100 1850 400 Output Total 740 2300 Balance 360 -450 400 Result Diagrams: 06/24/19 05:37 06/24/19 05:37 Additional Labs: Accuchecks 06/24/19 06/24/19 06/23/19 11:32 05:18 20:52 POC Glucose 107 102 167 H 06/23/19 17:15 POC Glucose 124 H Hospitalist ROS - Review of Systems Respiratory: denies: cough, dry, shortness of breath, hemoptysis, SOB with excertion, pleuritic pain, sputum, wheezing, other Cardiovascular: denies: chest pain, palpitations, orthopnea, paroxysmal noc. dyspnea, edema, light headedness, other - Medication Medications: Active Medications Generic Name Dose Route Start Last Admin Trade Name Freq PRN Reason Stop Dose Admin Acetaminophen 650 mg 06/22/19 16:05 06/23/19 09:51 Tylenol PO 650 mg Q4H PRN Administration Headache/Fever/Mild Pain (1-3) Atorvastatin Calcium 40 mg 06/23/19 21:00 06/23/19 21:24 Lipitor PO 40 mg HS IRVING Administration Famotidine 20 mg 06/22/19 21:00 06/24/19 08:17 Pepcid PO Not Given BID IRVING Clindamycin Phosphate/Dextrose 50 mls @ 100 mls/hr 06/22/19 22:00 06/24/19 13 :24 900 mg/ Device IVPB 50 mls Q8HR IRVING Administration Montelukast Sodium 10 mg 06/23/19 21:00 06/23/19 21:24 Singulair PO 10 mg HS IRVING Administration Saccharomyces Boulardii 250 mg 06/23/19 21:00 06/23/19 21:23 Florastor PO 250 mg HS IRVING Administration Senna/Docusate Sodium 1 tab 06/23/19 21:00 06/24/19 08:17 Senokot S PO Not Given BID IRVING Sodium Chloride 10 ml 06/23/19 21:00 06/24/19 08:18 Flush - Normal Saline IVF Not Given Q12HR IRVING Trazodone HCl 100 mg 06/23/19 21:00 06/23/19 21:29 Desyrel PO 100 mg HS IRVING Administration - Exam General Appearance: NAD Heart: no gallops, no rubs, normal peripheral pulses Heart - other findings: bradycardic Respiratory: no wheezes, no rales Gastrointestinal: soft, non-tender, non-distended Extremities: no cyanosis, no clubbing Extremities - other findings: left hand dressing + Hosp A/P - Plan DVT proph w/SCDs Abdominal pain prob due to significant constipation s/p 1/2 Golytely Left finger abscess s/p I&D 06/23 BPH/Chronic urinary retention s/p suprapubic catheter HTN DM2 Swallow dysfunction on modified diet Macrocytic anemia PCN allergy PLAN: Cont IV Clindamycin with probiotics Check KUB - family concerned about possible SBO/constipation PT eval Cont sliding scale Cont other meds as above
--- NOTE | 2019-06-24 13:54 | RAD ---
EXAM: 2 views abdomen PROVIDED CLINICAL HISTORY: Abdominal pain COMPARISON: None FINDINGS: Visualized lung bases appear clear. Bowel gas pattern is nonspecific. No radiographically apparent ur inary tract calculi. No evidence for pneumoperitoneum. Contrast material is noted within the colon. IMPRESSION: Nonspecific bowel gas pattern.
[2019-06-24] MEDS: HYDROcodone/Acetaminophen 5/325 mg Tablet PO PRN (16:44)
[2019-06-24] MEDS: traMADol HCl 50 MG TAB PO PRN (21:22)
[2019-06-24] MEDS: Saccharomyces boulardii 250 MG CAP PO SCH (21:22)
[2019-06-24] MEDS: Atorvastatin Calcium 40 MG TAB PO SCH (21:24)
[2019-06-24] MEDS: Montelukast Sodium 10 mg Tablet PO SCH (21:24)
[2019-06-24] MEDS: Polyethylene Glycol 3350 17 GM Packet PO SCH (21:25)
[2019-06-24] MEDS: traZODone HCl 50 MG TAB PO SCH ×2 (21:56→22:31)
[2019-06-25] MEDS: Clindamycin/D5W 900 MG in Premix Bag 1 BAG IVPB SCH ×3 (05:33→21:17)
[2019-06-25] MEDS: traMADol HCl 50 MG TAB PO PRN (06:36)
--- NOTE | 2019-06-25 06:54 | OP ---
DATE OF PROCEDURE: 06/24/2019 PREOPERATIVE DIAGNOSIS: Left ring finger abscess. POSTOPERATIVE DIAGNOSIS: Left ring finger abscess. FINDINGS: Abscess with cavity 1 cm x 1 cm, left ring finger with marked purulence. PROCEDURE PERFORMED: Left ring finger abscess incision and drainage. CULTURE SENT: Yes, abscess cavity, swab culture. ESTIMATED BLOOD LOSS: 5 mL or less. TOURNIQUET TIME: 5 minutes. INDICATION FOR PROCEDURE: Abscess did not respond to 48 hours IV antibiotics, left ring finger. DESCRIPTION OF PROCEDURE: After successful general endotracheal anesthesia, the limb was prepped and draped. The patient had the time-out done appropriately. He was given a small amount of sedation and had a block with 12 mL of 0.5% Marcaine. We allowed 10 minutes for this to set up and then we exsanguinated the limb, inflated the tourniquet to 250 mmHg pressure. We then made an oblique incision as part of Say line across the abscess, dissected out the cavity with tenotomy scissors and made a 1.5 mm incision to excise the skin portion of the cavity. We then irrigated with 250 mL normal saline. Deflated the tourniquet, obtained hemostasis. The wound was packed with normal saline soaked gauze. A bulky dressing was applied. The patient left the operating room without evidence of anesthetic or operative complication. Job ID: [id number]
[2019-06-25] MEDS: Senokot S 8.6-50 MG TAB PO SCH ×2 (08:42→20:21)
[2019-06-25] MEDS: Multivit, Therapeutic 1 TAB PO SCH (08:42)
[2019-06-25] MEDS: Folic Acid 1 MG TAB PO SCH (08:42)
[2019-06-25] MEDS: Aspirin Chewable 81 MG TAB PO SCH (08:42)
[2019-06-25] MEDS: Cyanocobalamin (Vitamin B-12) 1,000 MCG TAB PO SCH (08:42)
[2019-06-25] MEDS: Famotidine 20 MG TAB PO SCH ×2 (08:42→20:22)
--- NOTE | 2019-06-25 11:18 | PDOC.HOSPP ---
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 - Objective Vital Signs & Weight: Vital Signs (12 hours) Temp Pulse Resp BP Pulse Ox 06/25/19 10:52 97.9 F 81 20 99/62 95 06/25/19 08:00 98 06/25/19 07:22 97.7 F 57 L 20 95/66 98 06/25/19 05:28 98.1 F 54 L 18 97 06/25/19 00:00 98.1 F 53 L 18 101/59 L 96 Weight Weight 128 lb 0.006 oz I&O: 06/24/19 06/25/19 06/26/19 06:59 06:59 06:59 Intake Total 1850 1900 Output Total 2300 1900 Balance -450 0 Result Diagrams: 06/24/19 05:37 06/24/19 05:37 Additional Labs: Accuchecks 06/25/19 06/24/19 06/24/19 05:06 19:25 18:22 POC Glucose 89 243 H 145 H 06/24/19 11:32 POC Glucose 107 Hospitalist ROS - Medication Medications: Active Medications Generic Name Dose Route Start Last Admin Trade Name Freq PRN Reason Stop Dose Admin Acetaminophen 650 mg 06/22/19 16:05 06/23/19 09:51 Tylenol PO 650 mg Q4H PRN Administration Headache/Fever/Mild Pain (1-3) Hydrocodone Bitart/Acetaminophen 1 tab 06/24/19 10:42 06/24/19 16:44 [place] 5/325 PO 1 tab Q6H PRN Administration Mild-Moderate Pain (1-6) Aspirin 81 mg 06/24/19 09:00 06/25/19 08:42 Aspirin Chewable PO 81 mg DAILY IRVING Administration Atorvastatin Calcium 40 mg 06/23/19 21:00 06/24/19 21:24 Lipitor PO 40 mg HS IRVING Administration Cyanocobalamin 1,000 mcg 06/24/19 09:00 06/25/19 08:42 Vitamin B-12 PO 1,000 mcg DAILY IRVING Administration Famotidine 20 mg 06/22/19 21:00 06/25/19 08:42 Pepcid PO 20 mg BID IRVING Administration Folic Acid 1 mg 06/24/19 09:00 06/25/19 08:42 Folvite PO 1 mg DAILY IRVING Administration Clindamycin Phosphate/Dextrose 50 mls @ 100 mls/hr 06/22/19 22:00 06/25/19 05 :33 900 mg/ Device IVPB 50 mls Q8HR IRVING Administration Insulin Human Regular 0 units 06/23/19 16:13 06/24/19 22:32 Humulin R SC 2 unit .BEDTIME SLIDING SC PRN Administration Bedtime Correctional Scale Montelukast Sodium 10 mg 06/23/19 21:00 06/24/19 21:24 Singulair PO 10 mg HS IRVING Administration Multivitamins 1 tab 06/24/19 09:00 06/25/19 08:42 Theragran PO 1 tab DAILY IRVING Administration Polyethylene Glycol 17 gm 06/24/19 21:00 06/24/19 21:25 Miralax PO 17 gm HS IRVING Administration Saccharomyces Boulardii 250 mg 06/23/19 21:00 06/24/19 21:22 Florastor PO 250 mg HS IRVING Administration Senna/Docusate Sodium 1 tab 06/23/19 21:00 06/25/19 08:42 Senokot S PO 1 tab BID IRVING Administration Sodium Chloride 10 ml 06/23/19 21:00 06/25/19 08:43 Flush - Normal Saline IVF 10 ml Q12HR IRVING Administration Tramadol HCl 50 mg 06/23/19 16:08 06/25/19 06:36 Ultram PO 50 mg Q6H PRN Administration Moderate Pain (4-6) Trazodone HCl 100 mg 06/23/19 21:00 06/24/19 22:31 Desyrel PO 100 mg HS IRVING Administration - Exam General Appearance: awake alert Eye: PERRL, anicteric sclera ENT: no oropharyngeal lesions, moist mucosa Neck: supple, no JVD Heart: RRR, no murmur Respiratory: no wheezes, no rales Gastrointestinal: soft, non-tender, non-distended, normal bowel sounds Extremities: no cyanosis, no edema Neurological - other findings: left hemiparesis mild 4/5 Hosp A/P (1) left 4th finger abscess Status: Acute (2) Constipation Code(s): K59.00 - CONSTIPATION, UNSPECIFIED Status: Acute Qualifiers: Constipation type: slow transit constipation Qualified Code(s): K59.01 - Slow transit constipation (3) Hemiparesis and other late effects of cerebrovascular accident Code(s): I69.359 - HEMIPLGA FOLLOWING CEREBRAL INFARCTION AFFECTING UNSP SIDE; I69.398 - OTHER SEQUELAE OF CEREBRAL INFARCTION Status: Chronic (4) DM type 2 (diabetes mellitus, type 2) Status: Chronic Qualifiers: Diabetes mellitus group home insulin use: with termite control service representative use Diabetes mellitus complication status: with other specified complication Qualified Code (s): E11.69 - Type 2 diabetes mellitus with other specified complication; Z79.4 - terminal clerk (current) use of insulin (5) Dysphagia Code(s): R13.10 - DYSPHAGIA, UNSPECIFIED Status: Chronic Qualifiers: Dysphagia type: oropharyngeal phase Qualified Code(s): R13.12 - Dysphagia, oropharyngeal phase (6) BPH (benign prostatic hyperplasia) Code(s): N40.0 - BENIGN PROSTATIC HYPERPLASIA WITHOUT LOWER URINRY TRACT SYMP Status: Chronic Qualifiers: Lower urinary tract symptom detail: urinary obstruction (7) GERD (gastroesophageal reflux disease) Code(s): K21.9 - GASTRO-ESOPHAGEAL REFLUX DISEASE WITHOUT ESOPHAGITIS Status: Chronic Qualifiers: Esophagitis presence: without esophagitis Qualified Code(s): K21.9 - Gastro -esophageal reflux disease without esophagitis (8) HTN (hypertension) Code(s): I10 - ESSENTIAL (PRIMARY) HYPERTENSION Status: Chronic Qualifiers: Hypertension type: essential hypertension Qualified Code(s): I10 - Essential (primary) hypertension - Plan is on clindamycin per hand surgery advice continue asp, lipitor, trazadone, singulair, levemir, humalog sliding scale and morphine prn PT/OT eval, ?placement, lives with his neice, amb with rolling walker at home, is having difficulty with adl's now prior h/o cva with mild left hemiparesis 4/5, dysphagia/dysarthria a bit-moslty fluent. hemostable
[2019-06-25] MEDS: HYDROcodone/Acetaminophen 5/325 mg Tablet PO PRN (13:48)
[2019-06-25] MEDS: traZODone HCl 50 MG TAB PO SCH (20:20)
[2019-06-25] MEDS: Polyethylene Glycol 3350 17 GM Packet PO SCH (20:21)
[2019-06-25] MEDS: Montelukast Sodium 10 mg Tablet PO SCH (20:21)
[2019-06-25] MEDS: Saccharomyces boulardii 250 MG CAP PO SCH (20:21)
[2019-06-25] MEDS: Atorvastatin Calcium 40 MG TAB PO SCH (20:22)
[2019-06-26] MEDS: Clindamycin/D5W 900 MG in Premix Bag 1 BAG IVPB SCH ×3 (05:21→21:07)
[2019-06-26] MEDS: Famotidine 20 MG TAB PO SCH ×2 (08:21→21:06)
[2019-06-26] MEDS: Folic Acid 1 MG TAB PO SCH (08:21)
[2019-06-26] MEDS: Senokot S 8.6-50 MG TAB PO SCH ×2 (08:22→21:06)
[2019-06-26] MEDS: Aspirin Chewable 81 MG TAB PO SCH (08:22)
[2019-06-26] MEDS: Cyanocobalamin (Vitamin B-12) 1,000 MCG TAB PO SCH (08:22)
[2019-06-26] MEDS: Multivit, Therapeutic 1 TAB PO SCH (08:22)
[2019-06-26] MEDS ORDERED: Bisacodyl 5 MG TAB PO SCH (11:45)
[2019-06-26 14:55] LABS: Anion Gap 11 mmol/L (10-20); BUN (Urea Nitrogen) 13 mg/dL (8.4-25.7); Calc. Creatinine Clearance 68 mL/min (70-130); Carbon Dioxide 24 mmol/L (23-31); Chloride 104 mmol/L (98-107); Estimated GFR-MDRD 88; Glucose 172 mg/dL (80-115); Potassium 4.4 mmol/L (3.5-5.1); Sodium 135 mmol/L (136-145)
--- NOTE | 2019-06-26 15:09 | PDOC.HOSPP ---
- Subjective Encounter Date: 06/26/19 Encounter Time: 10:30 Subjective: pt up in bed states that he has not had a bm for the past couple days. - Objective Vital Signs & Weight: Vital Signs (12 hours) Temp Pulse Resp BP Pulse Ox 06/26/19 11:07 98.4 F 57 L 14 108/66 99 06/26/19 08:20 96 06/26/19 07:21 98.0 F 60 14 115/77 97 06/26/19 04:00 98.4 F 53 L 18 103/63 96 Weight Weight 128 lb 0.006 oz I&O: 06/25/19 06/26/19 06/27/19 06:59 06:59 06:59 Intake Total 1900 800 Output Total 1900 1900 Balance 0 -1100 Result Diagrams: 06/24/19 05:37 06/26/19 14:22 Additional Labs: Accuchecks 06/26/19 06/26/19 06/25/19 11:08 05:24 19:21 POC Glucose 105 103 153 H 06/25/19 15:45 POC Glucose 123 H Hospitalist ROS - Review of Systems Respiratory: denies: cough, dry, shortness of breath, hemoptysis, SOB with excertion, pleuritic pain, sputum, wheezing, other Cardiovascular: denies: chest pain, palpitations, orthopnea, paroxysmal noc. dyspnea, edema, light headedness, other Gastrointestinal: reports: abdominal pain, constipation Genitourinary: denies: dysuria, frequency, incontinence, hematuria, retention, other - Medication Medications: Active Medications Generic Name Dose Route Start Last Admin Trade Name Donisq PRN Reason Stop Dose Admin Acetaminophen 650 mg 06/22/19 16:05 06/23/19 09:51 Tylenol PO 650 mg Q4H PRN Administration Headache/Fever/Mild Pain (1-3) Hydrocodone Bitart/Acetaminophen 1 tab 06/24/19 10:42 06/25/19 13:48 [place] 5/325 PO 1 tab Q6H PRN Administration Mild-Moderate Pain (1-6) Aspirin 81 mg 06/24/19 09:00 06/26/19 08:22 Aspirin Chewable PO 81 mg DAILY IRVING Administration Atorvastatin Calcium 40 mg 06/23/19 21:00 06/25/19 20:22 Lipitor PO 40 mg HS IRVIGN Administration Cyanocobalamin 1,000 mcg 06/24/19 09:00 06/26/19 08:22 Vitamin B-12 PO 1,000 mcg DAILY IRVING Administration Famotidine 20 mg 06/22/19 21:00 06/26/19 08:21 Pepcid PO 20 mg BID IRVING Administration Folic Acid 1 mg 06/24/19 09:00 06/26/19 08:21 Folvite PO 1 mg DAILY IRVING Administration Clindamycin Phosphate/Dextrose 50 mls @ 100 mls/hr 06/22/19 22:00 06/26/19 14 :58 900 mg/ Device IVPB 50 mls Q8HR IRVING Administration Insulin Human Regular 0 units 06/23/19 16:13 06/24/19 22:32 Humulin R SC 2 unit .BEDTIME SLIDING SC PRN Administration Bedtime Correctional Scale Montelukast Sodium 10 mg 06/23/19 21:00 06/25/19 20:21 Singulair PO 10 mg HS IRVING Administration Multivitamins 1 tab 06/24/19 09:00 06/26/19 08:22 Theragran PO 1 tab DAILY IRVING Administration Saccharomyces Boulardii 250 mg 06/23/19 21:00 06/25/19 20:21 Florastor PO 250 mg HS IRVING Administration Senna/Docusate Sodium 1 tab 06/23/19 21:00 06/26/19 08:22 Senokot S PO 1 tab BID IRVING Administration Sodium Chloride 10 ml 06/23/19 21:00 06/26/19 08:21 Flush - Normal Saline IVF 10 ml Q12HR IRVING Administration Tramadol HCl 50 mg 06/23/19 16:08 06/25/19 06:36 Ultram PO 50 mg Q6H PRN Administration Moderate Pain (4-6) Trazodone HCl 100 mg 06/23/19 21:00 06/25/19 20:20 Desyrel PO 100 mg HS IRVING Administration - Exam Neck: negative: supple, symmetric, no JVD, no thyromegaly, no lymphadenopathy, no carotid bruit, JVD Heart: negative: RRR, no murmur, no gallops, no rubs, normal peripheral pulses, irregular, diminshed peripheral pulses, murmur present, II/IV, III/IV Respiratory: negative: CTAB, no wheezes, no rales, no ronchi, normal chest expansion, no tachypnea, normal percussion, rales, rhonchi, tachypneic, wheezes Gastrointestinal: soft Gastrointestinal - other findings: mild distention bsx2, mild pain on palpation to right lower abd Hosp A/P - Plan Hosp A/P (1) left 4th finger abscess Status: Acute (2) Constipation Code(s): K59.00 - CONSTIPATION, UNSPECIFIED Status: Acute Qualifiers: Constipation type: slow transit constipation Qualified Code(s): K59.01 - Slow transit constipation (3) Hemiparesis and other late effects of cerebrovascular accident Code(s): I69.359 - HEMIPLGA FOLLOWING CEREBRAL INFARCTION AFFECTING UNSP SIDE; I69.398 - OTHER SEQUELAE OF CEREBRAL INFARCTION Status: Chronic (4) DM type 2 (diabetes mellitus, type 2) Status: Chronic Qualifiers: Diabetes mellitus assistant terminal manager insulin use: with [facility] use Diabetes mellitus complication status: with other specified complication Qualified Code (s): E11.69 - Type 2 diabetes mellitus with other specified complication; Z79.4 - tank terminal gauger (current) use of insulin (5) Dysphagia Code(s): R13.10 - DYSPHAGIA, UNSPECIFIED Status: Chronic Qualifiers: Dysphagia type: oropharyngeal phase Qualified Code(s): R13.12 - Dysphagia, oropharyngeal phase (6) BPH (benign prostatic hyperplasia) Code(s): N40.0 - BENIGN PROSTATIC HYPERPLASIA WITHOUT LOWER URINRY TRACT SYMP Status: Chronic Qualifiers: Lower urinary tract symptom detail: urinary obstruction (7) GERD (gastroesophageal reflux disease) Code(s): K21.9 - GASTRO-ESOPHAGEAL REFLUX DISEASE WITHOUT ESOPHAGITIS Status: Chronic Qualifiers: Esophagitis presence: without esophagitis Qualified Code(s): K21.9 - Gastro -esophageal reflux disease without esophagitis (8) HTN (hypertension) Code(s): I10 - ESSENTIAL (PRIMARY) HYPERTENSION Status: Chronic Qualifiers: Hypertension type: essential hypertension Qualified Code(s): I10 - Essential (primary) hypertension - Plan is on clindamycin per hand surgery advice continue asp, lipitor, trazadone, singulair, levemir, humalog sliding scale and morphine prn PT/OT eval, ?placement, lives with his neice, amb with rolling walker at home, is having difficulty with adl's now prior h/o cva with mild left hemiparesis 05/19, dysphagia/dysarthria a bit-moslty fluent. hemostable 06/25 will get kub, will also give him oral dulcolax. Tried to called [facility] but phone business process analyst was poor. will try again later or [place]. pt on abx, i&d cx mrsa. will check a tsh. He will need outpatient gi workup
[2019-06-26] MEDS: HYDROcodone/Acetaminophen 5/325 mg Tablet PO PRN (15:47)
--- NOTE | 2019-06-26 17:55 | RAD ---
SUPINE ABDOMEN: 06/26/19 HISTORY: Abdominal pain. COMPARISON: 03/11/19. Prominent stool throughout the colon suggest constipation. Small bowel gas pattern is unremarkable. N o mass effect or abnormal calcification. IMPRESSION: Prominent stool throughout the colon. POS: AGW
[2019-06-26] MEDS: Saccharomyces boulardii 250 MG CAP PO SCH (21:06)
[2019-06-26] MEDS: Atorvastatin Calcium 40 MG TAB PO SCH (21:06)
[2019-06-26] MEDS: traZODone HCl 50 MG TAB PO SCH (21:06)
[2019-06-26] MEDS: Montelukast Sodium 10 mg Tablet PO SCH (21:07)
[2019-06-26] MEDS: Polyethylene Glycol 3350 17 GM Packet PO SCH (21:07)
[2019-06-27] MEDS: HYDROcodone/Acetaminophen 5/325 mg Tablet PO PRN (05:13)
[2019-06-27] MEDS: Clindamycin/D5W 900 MG in Premix Bag 1 BAG IVPB SCH (05:16)
[2019-06-27] MEDS: Magnesium Citrate 300 ML BOT PO SCH ×2 (06:48→06:57)
[2019-06-27] MEDS: Folic Acid 1 MG TAB PO SCH (08:00)
[2019-06-27] MEDS: Cyanocobalamin (Vitamin B-12) 1,000 MCG TAB PO SCH (08:00)
[2019-06-27] MEDS: Senokot S 8.6-50 MG TAB PO SCH (08:00)
[2019-06-27] MEDS: Famotidine 20 MG TAB PO SCH (08:00)
[2019-06-27] MEDS: Aspirin Chewable 81 MG TAB PO SCH (08:00)
[2019-06-27] MEDS: Multivit, Therapeutic 1 TAB PO SCH (08:00)
[2019-06-27] MEDS: Polyethylene Glycol 3350 17 GM Packet PO SCH (08:01)
[2019-06-27 14:13] VITALS: BP 119/56; TEMP 98.1
--- NOTE | 2019-06-28 04:48 | DIS ---
DATE OF ADMISSION: 06/22/2019 DATE OF DISCHARGE: 06/27/2019 DISCHARGE DIAGNOSES: 1. Left 4th finger abscess, methicillin-resistant Staphylococcus aureus in the culture. 2. Constipation. 3. Hemiparesis and other later effects of CVA. 4. Diabetes. 5. Dysphagia, which is chronic. 6. Hypertension. HOSPITAL COURSE: The patient is a 69-year-old male, who initially presented to the hospital on 06/21 with complaints of constipation. The patient states that he has been having these issues with constipation on and off and has been taking lactulose twice a day. 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 At this time, the patient also noticed that he had some swelling and erythema on his left middle finger. At this time, he was put on some broad-spectrum antibiotics and a CT of abdomen and pelvis was ordered. CT of abdomen and pelvis indicated significant amount of colonic fecal retention suggesting of constipation, nonspecific urinary bladder wall thickening, correlate with concerns of cystitis. He also has a suprapubic catheter. At this time, he was also seen by hand surgeon and underwent an I and D of his left ring finger. This was done on April 23. Cultures indicated MRSA. The patient was initially put on IV clindamycin, which was transitioned to oral, for total of 14 days. He was given GoLYTELY while he was in the hospital. I did check his thyroid. The thyroid was normal. The patient stated that he did not like MiraLAX since MiraLAX caused him to have some significant gaseous distention. The patient on the day of discharge had 2 or 3 bowel movements. The day prior, he also had a couple of bowel movements. I recommended the patient follow up with GI as an outpatient for better evaluation of his constipation. I have currently put him on certain medications that would probably help him with his constipation, which are as of the following medications; 1. Dulcolax 10 mg p.o. daily. He can take MiraLAX 17 g as needed, Senokot, and docusate one tablet p.o. b.i.d. 2. Aspirin 81 mg daily. 3. Losartan 25 mg daily. 4. He is on oxybutynin, which could possibly have some issues with constipation. 5. Trazodone 100 mg at bedtime. 6. Singulair 10 mg at bedtime. 7. Lasix one p.o. daily. 8. Metformin 500 mg b.i.d. 9. Atorvastatin 40 mg at bedtime. 10. Clindamycin 200 mg every 6 hours. He is going to take that for a total of 14 days, for 10 more days. PHYSICAL EXAMINATION: VITAL SIGNS: Temperature 98.1, pulse 64, respirations 16, oxygen saturation 99% on room air, blood pressure 119/56. GENERAL: He is awake, alert, and oriented x3. Does not appear in distress. CV: S1 and S2 present. No murmurs, rubs, or gallops. Again, he will be discharged to senior care, and from there, will be transitioned to home. The dressing recommendations are per the surgeon. He will follow up with the surgeon also and I have put that in his discharge instructions, and also he will follow up with his Primary and also GI as an outpatient. Job ID: [id number]
== END 2019-06-27 13:55 | DRG 603 ==
LOC: ERS 09:10 → T4-B 16:56 → OBSVTOIN 16:56
PROVIDERS: ADMIT Internal Medicine; ATTEND Internal Medicine
PROC: 0H9GXZZ Drainage of Left Hand Skin, External Approach (ICD-10-PCS; principal; 2019-06-24)
DX: L02.512 Cutaneous abscess of left hand (principal); I69.354 Hemiplegia and hemiparesis following cerebral infarction affecting left non-dominant side; K59.00 Constipation, unspecified; F89 Unspecified disorder of psychological development; F31.9 Bipolar disorder, unspecified; G89.29 Other chronic pain; E11.9 Type 2 diabetes mellitus without complications; N40.0 Benign prostatic hyperplasia without lower urinary tract symptoms; K21.9 Gastro-esophageal reflux disease without esophagitis; I10 Essential (primary) hypertension; N40.1 Benign prostatic hyperplasia with lower urinary tract symptoms; R13.19 Other dysphagia; F41.9 Anxiety disorder, unspecified; D53.9 Nutritional anemia, unspecified; E78.5 Hyperlipidemia, unspecified; E78.00 Pure hypercholesterolemia, unspecified; J45.909 Unspecified asthma, uncomplicated; Z88.0 Allergy status to penicillin; I69.391 Dysphagia following cerebral infarction
CPT/HCPCS: 36415; 36416; 71045; 74018; 74019; 74022; 74177; 80048; 80053; 81003; 81015; 83605; 83735; 84443; 85025; 87070; 87077; 87186; 87205; 93005; 96361; 96365; J1815; J2001; J2250; J2704; J3010; J3370; J3490; Q9967; S0020

== ENCOUNTER 2019-06-30 19:57 | Emergency (ER) | payer MEDICARE, MEDICAID ==
[~2019-06-30 19:57] MED LIST changes: -ISOVUE-370 76%-LOCM 1 ML ONE; +Iopamidol 370 76% 100 ML VIAL ONE
[2019-06-30 20:47] LABS: #Basophils 0.1 thou/uL (0.0-0.2); #Eosinphils 0.1 thou/uL (0.0-0.7); #Neutrophils 6.6 thou/uL (1.40-6.50); %Basophils 0.8 % (0.0-1.0); %Eosinophils 1.2 % (0.0-10.0); %Lymphocytes 20.2 % (21.0-51.0); %Monocytes 9.8 % (0.0-10.0); Hemoglobin 14.6 g/dL (14.0-18.0); Mean Corpuscular HGB CONC 33.8 g/dL (32.0-36.0); Mean Corpuscular Volume 97.7 fL (78.0-98.0); Mean Platelet Volume 8.1 fL (7.4-10.4); Platelet Count 228 thou/uL (130-400); RBC Distribution Width 12.2 % (11.5-14.5); Red Blood Cell (RBC) Count 4.44 mill/uL (4.70-6.10); White Blood Cell (WBC) Count 9.7 thou/uL (4.8-10.8)
[2019-06-30 21:08] LABS: ALT (SGPT) 12 U/L (8-55); AST (SGOT) 14 U/L (5-34); Alkaline Phosphatase 119 U/L (40-110); Anion Gap 13 mmol/L (10-20); BUN (Urea Nitrogen) 12 mg/dL (8.4-25.7); Bilirubin, Total 0.3 mg/dL (0.2-1.2); Calc. Creatinine Clearance 0 mL/min (70-130); Calcium 9.3 mg/dL (7.8-10.44); Carbon Dioxide 26 mmol/L (23-31); Chloride 102 mmol/L (98-107); Estimated GFR-MDRD Greater than 90; Globulin 3.1 g/dL (2.4-3.5); Glucose 157 mg/dL (80-115); Lipase 44 U/L (8-78); Potassium 3.9 mmol/L (3.5-5.1); Protein, Total 7.1 g/dL (5.8-8.1); Sodium 137 mmol/L (136-145)
--- NOTE | 2019-06-30 21:32 | CT ---
CT OF THE ABDOMEN AND PELVIS WITH CONTRAST: 06/30/19 COMPARISON: 06/21/09 HISTORY: Abdominal pain and distention. TECHNIQUE: Multiple contiguous axial images were obtained in a CT of the abdomen and pelvis with contrast. Sagit leticia and coronal reformats were performed. FINDINGS: The liver, gallbladder, kidneys, adrenal glands, spleen, and pancreas are unremarkable. No free air, free fluid, or stranding changes are seen in the abdomen or pelvis. A suprapubic tube is again seen in the urinary bladder with thickening of the urinary bladder wall. M oderate stool is again seen throughout the colon. The small bowel is normal in caliber without eviden ce of distention. No abdominal or pelvic lymphadenopathy are seen. Atherosclerotic calcifications are seen in the aorta. Degenerative changes are seen in the spine. The visualized inferior thorax and abdominal wall soft ti ssues are unremarkable. IMPRESSION: 1. Stable exam without acute intra-abdominal/pelvic abnormality. 2. Moderate stool retention in the colon. 3. Persistent thickening of the urinary bladder wall. POS: EAA
[2019-06-30 21:53] LABS: Bacteria/HPF 4+ HPF (None Seen); Bilirubin Negative (Negative); Blood, Urine 3+ (Negative); Calcium Oxalate Crystals 1+ HPF (None Seen); Clarity Turbid (Clear); Glucose, Urine (Dipstick) 150 mg/dL (Negative); Leukocyte 500 Leu/uL (Negative); Mucous/LPF Rare LPF (<2+); Nitrite Negative (Negative); Protein, Urine (Dipstick) 70 mg/dL (Neg-Trace); RBC/HPF Greater than 50 HPF (0-3); Squamous Epithelial None Seen HPF (0-3); Urobilinogen Normal mg/dL (Less than 2); WBC/HPF Greater than 50 HPF (0-3)
== END 2019-06-30 22:46 ==
LOC: ERS 19:57
DX: K59.00 Constipation, unspecified (principal); G89.29 Other chronic pain; R10.84 Generalized abdominal pain; N40.0 Benign prostatic hyperplasia without lower urinary tract symptoms; E78.5 Hyperlipidemia, unspecified; I10 Essential (primary) hypertension; E11.9 Type 2 diabetes mellitus without complications; E78.00 Pure hypercholesterolemia, unspecified; K21.9 Gastro-esophageal reflux disease without esophagitis; J45.909 Unspecified asthma, uncomplicated; F41.9 Anxiety disorder, unspecified; F31.9 Bipolar disorder, unspecified; Z86.73 Personal history of transient ischemic attack (TIA), and cerebral infarction without residual deficits; Z79.899 Other long term (current) drug therapy; Z79.82 Long term (current) use of aspirin; Z79.84 Long term (current) use of oral hypoglycemic drugs
CPT/HCPCS: 74177; 80053; 81003; 81015; 83690; 85025; Q9967

== ENCOUNTER 2019-09-13 18:10 | Emergency (ER) | payer MEDICARE, MEDICAID ==
[2019-09-13 18:46] LABS: Bilirubin Negative (Negative); Blood, Urine 1+ (Negative); Clarity Clear (Clear); Glucose, Urine (Dipstick) Normal (Negative); Ketone, Urine Negative (Negative); Leukocyte 500 Leu/uL (Negative); Nitrite Negative (Negative); Protein, Urine (Dipstick) Negative (Neg-Trace); RBC/HPF 0-3 HPF (0-3); Specific Gravity, Urine 1.007 (1.002-1.036); Squamous Epithelial 0-3 HPF (0-3); Urobilinogen Normal mg/dL (Less than 2); WBC/HPF Greater than 50 HPF (0-3)
[2019-09-13 18:48] LABS: Bacteria/HPF 2+ HPF (None Seen)
--- NOTE | 2019-09-13 18:52 | RAD ---
Exam: Chest one view HISTORY:Chest pain Comparison: 06/22/2019 FINDINGS: Cardiac silhouette:Upper normal cardiac silhouette Aorta: Unremarkable Pulmonary vessels: Normal Costophrenic angles: Clear LUNGS: No mass or consolidation. Stable hyperinflation. Pneumothorax: None Osseous abnormalities: None IMPRESSION: No acute cardiopulmonary process.
[2019-09-13 19:08] LABS: #Basophils 0.1 thou/uL (0.0-0.2); #Eosinphils 0.2 thou/uL (0.0-0.7); #Lymphocytes 1.5 thou/uL (1.20-3.40); #Monocytes 0.6 thou/uL (0.11-0.59); #Neutrophils 5.3 thou/uL (1.40-6.50); %Eosinophils 2.4 % (0.0-10.0); %Lymphocytes 19.8 % (21.0-51.0); %Monocytes 8.3 % (0.0-10.0); %Neutrophils 68.4 % (42.0-75.0); Mean Corpuscular HGB CONC 33.7 g/dL (32.0-36.0); Mean Platelet Volume 7.4 fL (7.4-10.4); Platelet Count 274 thou/uL (130-400); RBC Distribution Width 11.6 % (11.5-14.5); Red Blood Cell (RBC) Count 4.06 mill/uL (4.70-6.10); White Blood Cell (WBC) Count 7.7 thou/uL (4.8-10.8)
[2019-09-13 19:32] LABS: ALT (SGPT) 18 U/L (8-55); AST (SGOT) 15 U/L (5-34); Albumin 3.8 g/dL (3.4-4.8); Alkaline Phosphatase 126 U/L (40-110); Anion Gap 13 mmol/L (10-20); BUN (Urea Nitrogen) 13 mg/dL (8.4-25.7); Bilirubin, Total 0.3 mg/dL (0.2-1.2); CK (CPK) 76 U/L (30-200); Calc. Creatinine Clearance 0 mL/min (70-130); Calcium 8.4 mg/dL (7.8-10.44); Carbon Dioxide 23 mmol/L (23-31); Chloride 103 mmol/L (98-107); Estimated GFR-MDRD Greater than 90; Globulin 2.5 g/dL (2.4-3.5); Glucose 213 mg/dL (80-115); Lipase 31 U/L (8-78); Potassium 4.3 mmol/L (3.5-5.1); Protein, Total 6.3 g/dL (5.8-8.1); Sodium 135 mmol/L (136-145)
[2019-09-13 22:21] LABS: Troponin I Less than 0.010 ng/mL (< 0.028)
== END 2019-09-13 23:37 ==
LOC: ERS 18:10
DX: R07.9 Chest pain, unspecified (principal); E11.9 Type 2 diabetes mellitus without complications; I10 Essential (primary) hypertension; N40.0 Benign prostatic hyperplasia without lower urinary tract symptoms; E78.5 Hyperlipidemia, unspecified; E78.00 Pure hypercholesterolemia, unspecified; K21.9 Gastro-esophageal reflux disease without esophagitis; J45.909 Unspecified asthma, uncomplicated; F41.9 Anxiety disorder, unspecified; F31.9 Bipolar disorder, unspecified; Z86.73 Personal history of transient ischemic attack (TIA), and cerebral infarction without residual deficits; Z79.4 Long term (current) use of insulin; Z79.82 Long term (current) use of aspirin; Z79.51 Long term (current) use of inhaled steroids; Z79.899 Other long term (current) drug therapy
CPT/HCPCS: 36415; 71045; 80053; 81003; 81015; 82550; 83690; 84484; 85025; 87086; 93005; 96360

== ENCOUNTER 2019-12-19 09:53 | Outpatient (CLI) | payer MEDICARE, MEDICAID | END 2019-12-19 09:54 | disposition home or self-care (01) | LOC: CTENTCT 09:53 | PROVIDERS: ATTEND Specialist | DX: H71.90 Unspecified cholesteatoma, unspecified ear (principal) | CPT/HCPCS: 70480 ==

== ENCOUNTER 2019-12-24 07:59 | Emergency (ER) | payer MEDICARE, MEDICAID ==
[2019-12-24] MEDS ORDERED: Lorazepam 2 MG/ML VIAL ONE (08:55)
--- NOTE | 2019-12-24 09:43 | RAD ---
ABDOMEN 1 VIEW: Date: 12/24/2019 HISTORY: Back pain. COMPARISON: 06/19/2019. FINDINGS/IMPRESSION: The bowel gas pattern is unremarkable. There is fecal material in the rectosigmoid. The bony structur es are unremarkable. POS: MZA
[2019-12-25 10:27] LABS: SARS-CoV-2 MS2 Positive; SARS-CoV-2 N Gene Negative; SARS-CoV-2 S Gene Negative; SARS-CoV-2 by NAA Not Detected (NotDetected); SARS-CoV-2 orf1ab Negative
== END 2019-12-24 10:48 | disposition home or self-care (01) ==
LOC: ERS 07:59
DX: R45.1 Restlessness and agitation (principal); E78.5 Hyperlipidemia, unspecified; Z20.828 Contact with and (suspected) exposure to other viral communicable diseases; E78.00 Pure hypercholesterolemia, unspecified; E11.9 Type 2 diabetes mellitus without complications; I10 Essential (primary) hypertension; K21.9 Gastro-esophageal reflux disease without esophagitis; J45.909 Unspecified asthma, uncomplicated; F41.9 Anxiety disorder, unspecified; F31.9 Bipolar disorder, unspecified; Z79.899 Other long term (current) drug therapy; Z79.4 Long term (current) use of insulin; Z79.82 Long term (current) use of aspirin
CPT/HCPCS: 74018; U0003; 87635; 96372; J2060

== ENCOUNTER 2020-01-01 03:17 | Emergency (ER) | payer MEDICARE, MEDICAID ==
[2020-01-01 04:48] LABS: #Basophils 0.1 thou/uL (0.0-0.2); #Eosinphils 0.1 thou/uL (0.0-0.7); #Lymphocytes 1.8 thou/uL (1.20-3.40); #Monocytes 0.8 thou/uL (0.11-0.59); %Basophils 0.9 % (0.0-1.0); %Eosinophils 1.5 % (0.0-10.0); %Lymphocytes 26.3 % (21.0-51.0); %Monocytes 12.3 % (0.0-10.0); Hemoglobin 13.5 g/dL (14.0-18.0); Mean Corpuscular HGB CONC 33.9 g/dL (32.0-36.0); Mean Corpuscular Hemoglobin 32.5 pg (27.0-31.0); Mean Corpuscular Volume 95.8 fL (78.0-98.0); Mean Platelet Volume 7.4 fL (7.4-10.4); Platelet Count 229 thou/uL (130-400); RBC Distribution Width 11.6 % (11.5-14.5); Red Blood Cell (RBC) Count 4.15 mill/uL (4.70-6.10); White Blood Cell (WBC) Count 6.8 thou/uL (4.8-10.8)
[2020-01-01 04:53] LABS: INR-International Normal Ratio 1.1; PTT 28.2 sec (22.9-36.1); Prothrombin Time 13.9 sec (12.0-14.7)
[2020-01-01] MEDS ORDERED: HYDROcodone/Acetaminophen 5/325 mg Tablet ONE (05:08)
[2020-01-01] MEDS ORDERED: Ondansetron ODT 4 MG TAB ONE (05:08)
[2020-01-01 05:12] LABS: ALT (SGPT) 14 U/L (8-55); AST (SGOT) 20 U/L (5-34); Albumin 3.9 g/dL (3.4-4.8); Alkaline Phosphatase 85 U/L (40-110); Anion Gap 16 mmol/L (10-20); BUN (Urea Nitrogen) 18 mg/dL (8.4-25.7); Bilirubin, Total 0.4 mg/dL (0.2-1.2); Calc. Creatinine Clearance 0 mL/min (70-130); Carbon Dioxide 20 mmol/L (23-31); Chloride 107 mmol/L (98-107); Estimated GFR-MDRD Greater than 90; Globulin 2.9 g/dL (2.4-3.5); Glucose 109 mg/dL (80-115); Potassium 3.9 mmol/L (3.5-5.1); Protein, Total 6.8 g/dL (5.8-8.1); Sodium 139 mmol/L (136-145)
--- NOTE | 2020-01-01 07:36 | RAD ---
EXAM: 2 views of the left hip HISTORY: Left hip pain after fall COMPARISON: None FINDINGS: 2 views of the left hip shows no evidence of acute fracture or dislocation. No degenerative changes are seen. Mild lateral soft tissue swelling is present. IMPRESSION: No evidence of acute osseous abnormality.
--- NOTE | 2020-01-01 07:48 | RAD ---
XR Chest 1 View Portable History: Fall Comparison: Radiograph September 13, 2019 Findings: Background lung hyperinflation. Nodule projects over the right hilum measures at the pulmon osmany vessel seen en face. Mild scarring lung apices. Heart size mildly enlarged. No acute displaced rib fracture. Impression: No acute intrathoracic abnormality.
--- NOTE | 2020-01-01 07:48 | RAD ---
EXAM: 4 views of the right knee HISTORY: Knee pain after fall COMPARISON: None FINDINGS: No knee effusion is seen. There is no evidence of acute fracture or dislocation. Mild byrd lofemoral degenerative changes are seen. No soft tissue swelling is present. IMPRESSION: No evidence of acute osseous abnormality.
--- NOTE | 2020-01-01 07:49 | RAD ---
EXAM: 2 views of the right hip HISTORY: Right hip pain after fall COMPARISON: None FINDINGS: 2 views of the right hip shows no evidence of acute fracture or dislocation. No degenerativ e changes are seen. Mild lateral soft tissue swelling is present. IMPRESSION: No evidence of acute osseous abnormality.
--- NOTE | 2020-01-01 07:49 | RAD ---
EXAM: 4 views of the left knee HISTORY: Knee pain after fall COMPARISON: None FINDINGS: No knee effusion is seen. There is no evidence of acute fracture or dislocation. No signifi cant degenerative changes are seen. No soft tissue swelling is present. IMPRESSION: No evidence of acute osseous abnormality.
--- NOTE | 2020-01-01 07:50 | RAD ---
EXAM: 3 views of the left ankle HISTORY: Ankle pain after fall COMPARISON: None FINDINGS: 3 views of the left ankle shows no evidence of acute fracture or dislocation. Mild diffuse soft tissue swelling is seen. No degenerative changes are present. IMPRESSION: No evidence of acute osseous abnormality.
--- NOTE | 2020-01-01 07:50 | RAD ---
XR Ankle Rt 3 View STANDARD History: Fall Comparison: None. Findings: Abnormal curvilinear sclerosis predominantly to the posterior process calcaneus near the Ac hilles insertion concerning for healing stress fracture. Small plantar calcaneal spur. Impression: Findings concerning for healing stress fracture of the posterior superior process calcane us near the Achilles insertion.
--- NOTE | 2020-01-01 08:14 | CT ---
PRELIMINARY REPORT/[facility]/EMERGENCY AFTER HOURS PROCEDURE: EXAM: CT Head Without Intravenous Contrast. CLINICAL HISTORY: FROM [facility] TRIPPED AND FELL OVER WALKER THINK HE "SNAPPED HIS BACK" NO STEP OFF complains of lo w back pain TECHNIQUE: Axial computed tomography images of the head/brain without intravenous contrast. COMPARISON: None provided. FINDINGS: BRAIN: No acute intraparenchymal hemorrhage. No mass lesion. No CT evidence for acute territorial infarct. N o midline shift or extra-axial collection. VENTRICLES: No hydrocephalus. ORBITS: The orbits are unremarkable. SINUSES AND MASTOIDS: The paranasal sinuses and mastoid air cells are clear. SOFT TISSUES: Mild paranasal soft tissue thickening superior to the nasal bones which is nonspecific. BONES: No acute skull fracture. IMPRESSION: No acute intracranial abnormality. ELECTRONICALLY SIGNED BY: Gi Abdalla MD Jan 01, 2020 4:00:23 AM WEB CONTENT SPECIALIST This report is intended for review by the ordering physician only, in accordance of law. If you recei ve this report in error, please call [facility] at [phone]. FINAL REPORT EMERGENT AFTER HOURS CT OF THE BRAIN WITHOUT CONTRAST: COMPARISON: 03/11/2019 and MRI brain 03/12/2019. FINDINGS/IMPRESSION: I agree with the findings and impression given in the preliminary report per [facility] physici an. No evidence of acute intracranial abnormality. POS: INGRID
--- NOTE | 2020-01-01 08:15 | CT ---
PRELIMINARY REPORT/[facility]/EMERGENCY AFTER HOURS PROCEDURE: EXAM: CT Cervical Spine Without Intravenous Contrast. CLINICAL HISTORY: FROM [facility] TRIPPED AND FELL OVER WALKER THINK HE "SNAPPED HIS BACK" NO STEP OFF complains of lo w back pain TECHNIQUE: Axial computed tomography images of the cervical spine without intravenous contrast. Sagittal and cor onal reformations performed. COMPARISON: None provided. FINDINGS: BONES: No acute fracture or focal osseous lesion. Bony alignment is anatomic. Chronic sclerosis mastoids with opacification of the right mastoid air cells. DISCS / DEGENERATIVE CHANGES: Multilevel degenerative changes of the cervical spine with intervertebral disc space narrowing, facet and uncovertebral hypertrophy with spinal canal worst at C4/5 and C5/6 foraminal stenosis extending from C2/3 through C5/6. SOFT TISSUES: No prevertebral soft tissue swelling. No apical pneumothorax. IMPRESSION: No acute cervical spine abnormality. Degenerative changes as described above. ELECTRONICALLY SIGNED BY: Gi Abdalla MD Jan 01, 2020 4:04:52 AM DIRECTOR OF RESTAURANT This report is intended for review by the ordering physician only, in accordance of law. If you recei ve this report in error, please call [facility] at [phone]. FINAL REPORT EMERGENT AFTER HOURS CT OF THE CERVICAL SPINE WITHOUT CONTRAST: FINDINGS/IMPRESSION: I agree with the findings and impression given in the preliminary report per [facility] physici an. There are mild degenerative changes of the cervical spine without acute osseous abnormality. POS: JUHIA
--- NOTE | 2020-01-01 08:17 | CT ---
PRELIMINARY REPORT/[facility]/EMERGENCY AFTER HOURS PROCEDURE: EXAM: CT Pelvis Without Intravenous Contrast. CLINICAL HISTORY: FROM [facility] TRIPPED AND FELL OVER WALKER THINK HE "SNAPPED HIS BACK" NO STEP OFF complains of lo w back pain TECHNIQUE: Axial computed tomography images of the pelvis without intravenous contrast. CONTRAST: None. COMPARISON: None provided. FINDINGS: HIP JOINTS: No dislocation. The joint spaces are normal. BONES: 6 mm sclerotic focus within the left femoral head which is nonspecific. SOFT TISSUES: Mural thickening of the urinary bladder which may be partially due to under distention, however corre lation with urinalysis is recommended in order to evaluate for cystitis. Suprapubic catheter within the bladder. Small left fat-containing inguinal hernia. Scattered atherosclerotic calcifications of the aorta. IMPRESSION: No acute fracture or dislocation. Suprapubic catheter within the bladder. Mural thickening of the urinary bladder which may be partiall y due to under distention, however correlation with urinalysis is recommended in order to evaluate fo r cystitis. ELECTRONICALLY SIGNED BY: Gi Abdalla MD Jan 01, 2020 4:09:34 AM SURGICAL SERVICES ASSISTANT This report is intended for review by the ordering physician only, in accordance of law. If you recei ve this report in error, please call [facility] at [phone]. FINAL REPORT EMERGENT AFTER HOURS CT OF THE PELVIS WITHOUT CONTRAST: HISTORY: Tripped and fell over a walker with hip pain. FINDINGS/IMPRESSION: I agree with the findings and impression given in the preliminary report per [facility] physici an. 1. No evidence of acute osseous abnormality of bones of pelvis or hips. 2. There is a suprapubic catheter within the urinary bladder. POS: INGRID
--- NOTE | 2020-01-01 08:19 | CT ---
PRELIMINARY REPORT/[facility]/EMERGENCY AFTER HOURS PROCEDURE: EXAM: CT Lumbar Spine Without Intravenous Contrast. CLINICAL HISTORY: FROM [facility] TRIPPED AND FELL OVER WALKER THINK HE "SNAPPED HIS BACK" NO STEP OFF complains of lo w back pain/ TECHNIQUE: Axial computed tomography images of the lumbar spine without intravenous contrast. Sagittal and coron al reformations performed. COMPARISON: None provided. FINDINGS: BONES: No acute fracture or focal osseous lesion. Bony alignment is anatomic. DISCS/DEGENERATIVE CHANGES: Disc bulge with moderate canal stenosis at L4/5 SOFT TISSUES: Reyna catheter within the urinary bladder. Mural thickening of the urinary bladder. IMPRESSION: No acute lumbar spine abnormality. Mural thickening of the urinary bladder which may be partially due to under distention, however corre lation with urinalysis is recommended in order to evaluate for cystitis. ELECTRONICALLY SIGNED BY: Gi Abdalla MD Jan 01, 2020 4:07:04 AM COREMAKER HELPER This report is intended for review by the ordering physician only, in accordance of law. If you recei ve this report in error, please call [facility] at [phone]. FINAL REPORT EMERGENT AFTER HOURS CT OF THE LUMBAR SPINE WITHOUT CONTRAST: FINDINGS/IMPRESSION: I agree with the findings and impression given in the preliminary report per [facility] physici an. No evidence of acute osseous abnormality of the lumbar spine. POS: INGRID
== END 2020-01-01 05:41 | disposition home or self-care (01) ==
LOC: ERS 03:17
DX: M54.5 Low back pain (principal); M25.572 Pain in left ankle and joints of left foot; M25.571 Pain in right ankle and joints of right foot; M25.552 Pain in left hip; M25.551 Pain in right hip; E78.5 Hyperlipidemia, unspecified; E78.00 Pure hypercholesterolemia, unspecified; E11.9 Type 2 diabetes mellitus without complications; I10 Essential (primary) hypertension; K21.9 Gastro-esophageal reflux disease without esophagitis; Z86.73 Personal history of transient ischemic attack (TIA), and cerebral infarction without residual deficits; J45.909 Unspecified asthma, uncomplicated; F31.9 Bipolar disorder, unspecified; F41.9 Anxiety disorder, unspecified; Z79.82 Long term (current) use of aspirin; Z79.899 Other long term (current) drug therapy; Z79.4 Long term (current) use of insulin; W18.30XA Fall on same level, unspecified, initial encounter
CPT/HCPCS: 36415; 70450; 71045; 72125; 72131; 72192; 80053; 83605; 85025; 85610; 85730; Q0162

== ENCOUNTER 2020-01-01 19:47 | Emergency (ER) | payer MEDICARE, MEDICAID ==
[~2020-01-01 19:47] MED LIST changes: -Iopamidol 370 76% 100 ML VIAL ONE; +Iopamidol-370 76% 500 ML 1 ML ONE
[2020-01-01] MEDS ORDERED: Morphine 4 MG/ML VIAL ONE (20:29)
[2020-01-01] MEDS ORDERED: Ondansetron PF 4 MG/2 ML Vial ONE (20:29)
[2020-01-01 21:01] LABS: Bacteria/HPF 4+ HPF (None Seen); Bilirubin Negative (Negative); Blood, Urine 2+ (Negative); Clarity Turbid (Clear); Glucose, Urine (Dipstick) Normal (Negative); Ketone, Urine Negative (Negative); Leukocyte 500 Leu/uL (Negative); Nitrite 2+ (Negative); Protein, Urine (Dipstick) 70 mg/dL (Neg-Trace); RBC/HPF Greater than 50 HPF (0-3); Squamous Epithelial 0-3 HPF (0-3); Triple Phosphate Crystal 1+ HPF (None Seen); Urobilinogen Normal mg/dL (Less than 2); WBC/HPF Greater than 50 HPF (0-3)
[2020-01-01 21:06] LABS: #Lymphocytes 1.2 thou/uL (1.20-3.40); #Monocytes 0.9 thou/uL (0.11-0.59); #Neutrophils 8.9 thou/uL (1.40-6.50); %Basophils 0.3 % (0.0-1.0); %Eosinophils 0.3 % (0.0-10.0); %Monocytes 8.2 % (0.0-10.0); %Neutrophils 80.3 % (42.0-75.0); Hemoglobin 14.2 g/dL (14.0-18.0); Mean Corpuscular HGB CONC 33.6 g/dL (32.0-36.0); Mean Corpuscular Hemoglobin 32.1 pg (27.0-31.0); Mean Corpuscular Volume 95.4 fL (78.0-98.0); Mean Platelet Volume 7.7 fL (7.4-10.4); Platelet Count 259 thou/uL (130-400); RBC Distribution Width 11.9 % (11.5-14.5); Red Blood Cell (RBC) Count 4.44 mill/uL (4.70-6.10)
[2020-01-01 21:07] LABS: Amphetamine Not Detected (NotDetected); Barbiturates Screen Not Detected (NotDetected); Benzodiazepine Screen Detected (NotDetected); Cocaine Metabolite Screen Not Detected (NotDetected); Medtox Control Line Valid? VALID (VALID); Medtox Reader # READER 1; Methadone Not Detected (NotDetected); Methamphetamine Not Detected (NotDetected); Opiate Screen Detected (NotDetected); Oxycodone Screen Not Detected (NotDetected); Phencyclidine (PCP) Not Detected (NotDetected); THC/Cannabinoid Screen Not Detected (NotDetected); Tricyclic Screen Not Detected (NotDetected)
[2020-01-01 21:20] LABS: Acetaminophen Less than 6.0 mcg/mL (10.0-30.0); Alcohol Less than 10 mg/dL (Less than 10); CK (CPK) 436 U/L (30-200); Salicylate Less than 8.0 mg/dL (15.0-30.0)
[2020-01-01 21:30] LABS: ALT (SGPT) 19 U/L (8-55); AST (SGOT) 27 U/L (5-34); Albumin 4.4 g/dL (3.4-4.8); Alcohol Less than 10 mg/dL (Less than 10); Alkaline Phosphatase 88 U/L (40-110); Anion Gap 16 mmol/L (10-20); BUN (Urea Nitrogen) 21 mg/dL (8.4-25.7); Bilirubin, Total 0.5 mg/dL (0.2-1.2); Calc. Creatinine Clearance 0 mL/min (70-130); Calcium 9.8 mg/dL (7.8-10.44); Carbon Dioxide 23 mmol/L (23-31); Chloride 107 mmol/L (98-107); Estimated GFR-MDRD 79; Globulin 3.2 g/dL (2.4-3.5); Glucose 118 mg/dL (80-115); Lipase 24 U/L (8-78); Potassium 4.5 mmol/L (3.5-5.1); Protein, Total 7.6 g/dL (5.8-8.1); Sodium 141 mmol/L (136-145)
--- NOTE | 2020-01-01 22:03 | CT ---
CT ABDOMEN WITH CONTRAST CT PELVIS WITH CONTRAST: DATE: 01/01/2020 9:09 PM HISTORY: 69-year-old male with generalized abdominal pain. Rule out small bowel obstruction. COMPARISON: 06/30/2019 TECHNIQUE: IV injection of iodinated contrast media: administered. Oral contrast media:Not administered FINDINGS: Suprapubic catheter within empty urinary bladder. Appendix not identified with certainty. No small bowel dilation. Moderate to large volume of colonic stool throughout large intestine. No signs of colonic diverticulitis. No major pathology of liver, kidneys, adrenals, pancreas, or spleen. No ascites or pneumoperitoneum. No consolidation or pleural effusion at lung bases. No interval change IMPRESSION: 1) suprapubic catheter. 2) appendix not identified 3) otherwise no acute findings. 4) no small bowel obstruction.
[2020-01-01] MEDS ORDERED: cefTRIAXone\\ROCEPHIN 1 GM VIAL ONE (22:44)
== END 2020-01-02 01:20 | disposition home or self-care (01) ==
LOC: ERS 19:47
DX: R10.9 Unspecified abdominal pain (principal); F31.9 Bipolar disorder, unspecified; R45.851 Suicidal ideations; Z79.4 Long term (current) use of insulin; Z79.82 Long term (current) use of aspirin; Z79.899 Other long term (current) drug therapy; E78.5 Hyperlipidemia, unspecified; E78.00 Pure hypercholesterolemia, unspecified; E11.9 Type 2 diabetes mellitus without complications; I10 Essential (primary) hypertension; J45.909 Unspecified asthma, uncomplicated; F41.9 Anxiety disorder, unspecified
CPT/HCPCS: 36415; 70450; 71045; 72125; 72131; 72192; 74177; 80053; 80306; 80307; 81003; 81015; 82550; 83605; 83690; 84443; 84484; 85025; 85610; 85730; 93005; 96365; 96375; J0696; J2270; J2405; Q0162; Q9967

== ENCOUNTER 2020-01-03 03:48 | Emergency (ER) | payer MEDICARE, MEDICAID ==
[2020-01-03 05:09] LABS: Bilirubin Negative (Negative); Blood, Urine 1+ (Negative); Clarity Clear (Clear); Glucose, Urine (Dipstick) Normal (Negative); Ketone, Urine Trace mg/dL (Negative); Leukocyte 250 Leu/uL (Negative); Nitrite Negative (Negative); Protein, Urine (Dipstick) 100 mg/dL (Neg-Trace); Specific Gravity, Urine 1.026 (1.002-1.036); Urobilinogen Normal mg/dL (Less than 2); WBC/HPF 21-50 HPF (0-3); pH, Urine 5.5 (5.0-9.0)
[2020-01-03 05:16] LABS: Bacteria/HPF None Seen HPF (None Seen); Mucous/LPF Rare LPF (<2+); Squamous Epithelial None Seen HPF (0-3)
[2020-01-03 05:17] LABS: Amphetamine Not Detected (NotDetected); Barbiturates Screen Not Detected (NotDetected); Benzodiazepine Screen Detected (NotDetected); Cocaine Metabolite Screen Not Detected (NotDetected); Medtox Control Line Valid? VALID (VALID); Medtox Reader # READER 4; Methadone Not Detected (NotDetected); Methamphetamine Not Detected (NotDetected); Opiate Screen Detected (NotDetected); Oxycodone Screen Not Detected (NotDetected); Phencyclidine (PCP) Not Detected (NotDetected); THC/Cannabinoid Screen Not Detected (NotDetected); Tricyclic Screen Not Detected (NotDetected)
[2020-01-03 05:17] LABS: #Eosinphils 0.2 thou/uL (0.0-0.7); #Lymphocytes 1.5 thou/uL (1.20-3.40); #Monocytes 0.8 thou/uL (0.11-0.59); #Neutrophils 5.6 thou/uL (1.40-6.50); %Basophils 0.5 % (0.0-1.0); %Lymphocytes 18.7 % (21.0-51.0); %Monocytes 9.9 % (0.0-10.0); Hemoglobin 13.9 g/dL (14.0-18.0); Mean Corpuscular HGB CONC 34.3 g/dL (32.0-36.0); Mean Corpuscular Hemoglobin 33.3 pg (27.0-31.0); Mean Corpuscular Volume 97.2 fL (78.0-98.0); Mean Platelet Volume 7.2 fL (7.4-10.4); Platelet Count 222 thou/uL (130-400); RBC Distribution Width 11.7 % (11.5-14.5); Red Blood Cell (RBC) Count 4.17 mill/uL (4.70-6.10); White Blood Cell (WBC) Count 8.1 thou/uL (4.8-10.8)
[2020-01-03 05:19] LABS: Unclassified Crystals None Seen HPF (None Seen)
[2020-01-03 05:34] LABS: Acetaminophen Less than 6.0 mcg/mL (10.0-30.0); Alcohol Less than 10 mg/dL (Less than 10); CK (CPK) 528 U/L (30-200); Salicylate Less than 8.0 mg/dL (15.0-30.0)
[2020-01-03 05:35] LABS: ALT (SGPT) 17 U/L (8-55); AST (SGOT) 29 U/L (5-34); Albumin 3.8 g/dL (3.4-4.8); Alkaline Phosphatase 84 U/L (40-110); Anion Gap 12 mmol/L (10-20); BUN (Urea Nitrogen) 13 mg/dL (8.4-25.7); Bilirubin, Total 0.5 mg/dL (0.2-1.2); Calc. Creatinine Clearance 0 mL/min (70-130); Calcium 8.9 mg/dL (7.8-10.44); Carbon Dioxide 26 mmol/L (23-31); Chloride 105 mmol/L (98-107); Estimated GFR-MDRD Greater than 90; Globulin 2.9 g/dL (2.4-3.5); Glucose 170 mg/dL (80-115); Potassium 3.6 mmol/L (3.5-5.1); Protein, Total 6.7 g/dL (5.8-8.1); Sodium 139 mmol/L (136-145)
== END 2020-01-03 06:00 | disposition home or self-care (01) ==
LOC: ERS 03:48
DX: R44.3 Hallucinations, unspecified (principal); T42.4X5A Adverse effect of benzodiazepines, initial encounter; E78.5 Hyperlipidemia, unspecified; E78.00 Pure hypercholesterolemia, unspecified; E11.9 Type 2 diabetes mellitus without complications; K21.9 Gastro-esophageal reflux disease without esophagitis; J45.909 Unspecified asthma, uncomplicated; I10 Essential (primary) hypertension; F31.9 Bipolar disorder, unspecified; F41.9 Anxiety disorder, unspecified; Z86.73 Personal history of transient ischemic attack (TIA), and cerebral infarction without residual deficits; Z79.4 Long term (current) use of insulin; Z79.82 Long term (current) use of aspirin; Z79.899 Other long term (current) drug therapy
CPT/HCPCS: 36415; 80053; 80306; 80307; 81003; 81015; 82550; 84443; 85025

== ENCOUNTER 2020-01-03 17:48 | Inpatient (IN) | payer MEDICARE, MEDICAID ==
[2020-01-03 19:31] LABS: #Lymphocytes 1.1 thou/uL (1.20-3.40); #Monocytes 0.8 thou/uL (0.11-0.59); #Neutrophils 9.2 thou/uL (1.40-6.50); %Basophils 0.3 % (0.0-1.0); %Eosinophils 0.4 % (0.0-10.0); %Lymphocytes 10.2 % (21.0-51.0); %Monocytes 7.4 % (0.0-10.0); %Neutrophils 81.7 % (42.0-75.0); Hemoglobin 14.4 g/dL (14.0-18.0); Mean Corpuscular HGB CONC 34.1 g/dL (32.0-36.0); Mean Corpuscular Hemoglobin 32.5 pg (27.0-31.0); Mean Corpuscular Volume 95.4 fL (78.0-98.0); Mean Platelet Volume 7.3 fL (7.4-10.4); Platelet Count 265 thou/uL (130-400); RBC Distribution Width 11.9 % (11.5-14.5); Red Blood Cell (RBC) Count 4.41 mill/uL (4.70-6.10); White Blood Cell (WBC) Count 11.2 thou/uL (4.8-10.8)
[2020-01-03 19:39] LABS: Bacteria/HPF 3+ HPF (None Seen); Bilirubin Negative (Negative); Blood, Urine 3+ (Negative); Calcium Oxalate Crystals 3+ HPF (None Seen); Clarity Turbid (Clear); Glucose, Urine (Dipstick) 30 mg/dL (Negative); Ketone, Urine 10 mg/dL (Negative); Leukocyte 250 Leu/uL (Negative); Nitrite Negative (Negative); Protein, Urine (Dipstick) 300 mg/dL (Neg-Trace); RBC/HPF Greater than 50 HPF (0-3); Specific Gravity, Urine 1.027 (1.002-1.036); Squamous Epithelial 0-3 HPF (0-3); Urobilinogen Normal mg/dL (Less than 2); WBC/HPF Greater than 50 HPF (0-3); pH, Urine 5.5 (5.0-9.0)
[2020-01-03 19:46] LABS: Amphetamine Not Detected (NotDetected); Barbiturates Screen Not Detected (NotDetected); Benzodiazepine Screen Detected (NotDetected); Cocaine Metabolite Screen Not Detected (NotDetected); Medtox Control Line Valid? VALID (VALID); Medtox Reader # READER 1; Methadone Not Detected (NotDetected); Methamphetamine Not Detected (NotDetected); Opiate Screen Detected (NotDetected); Oxycodone Screen Not Detected (NotDetected); Phencyclidine (PCP) Not Detected (NotDetected); THC/Cannabinoid Screen Not Detected (NotDetected); Tricyclic Screen Not Detected (NotDetected)
[2020-01-03 19:46] LABS: ALT (SGPT) 22 U/L (8-55); AST (SGOT) 34 U/L (5-34); Acetaminophen Less than 6.0 mcg/mL (10.0-30.0); Albumin 4.2 g/dL (3.4-4.8); Alcohol Less than 10 mg/dL (Less than 10); Alkaline Phosphatase 90 U/L (40-110); Anion Gap 16 mmol/L (10-20); BUN (Urea Nitrogen) 18 mg/dL (8.4-25.7); Bilirubin, Total 0.6 mg/dL (0.2-1.2); Calc. Creatinine Clearance 0 mL/min (70-130); Calcium 9.8 mg/dL (7.8-10.44); Carbon Dioxide 22 mmol/L (23-31); Chloride 106 mmol/L (98-107); Estimated GFR-MDRD 77; Globulin 3.2 g/dL (2.4-3.5); Glucose 162 mg/dL (80-115); Potassium 4.4 mmol/L (3.5-5.1); Protein, Total 7.4 g/dL (5.8-8.1); Salicylate Less than 8.0 mg/dL (15.0-30.0); Sodium 140 mmol/L (136-145)
[2020-01-03] MEDS ORDERED: Lorazepam 2 MG/ML VIAL ONE (20:10)
[2020-01-03] MEDS ORDERED: cefTRIAXone\\ROCEPHIN 1 GM VIAL ONE ×2 (20:26→20:27)
[2020-01-03] MEDS ORDERED: Vancomycin 1 GM in Premix Bag 1 BAG IVPB SCH (21:00)
[2020-01-03 21:06] LABS: Vancomycin, Trough Less than 1.1 ug/mL
[2020-01-03] MEDS ORDERED: Vancomycin 1 GM/200 ML BAG ONE (21:17)
[2020-01-03] MEDS: Sodium Chloride 0.9% 1,000 ML IV SCH (22:48)
[2020-01-03 23:02] VITALS: BMI 23.0
[2020-01-03] MEDS ORDERED: HumaLOG 300 UNITS/3 ML VIAL SC PRN (23:07)
[2020-01-03] MEDS ORDERED: Dextrose 50% Abboject 50 ML SYRINGE SLOW IVP PRN (23:07)
[2020-01-03] MEDS ORDERED: Dextrose 5% in Water 1,000 ML IV PRN (23:07)
--- NOTE | 2020-01-03 23:29 | PDOC.BPN ---
- Brief Progress Note [id number] HP dictated
[2020-01-03 23:38] LABS: Lactic Acid 0.9 mmol/L (0.5-2.2)
[2020-01-04] MEDS: Cefepime 2 GM in Sodium Chloride 0.9% 100 ML IVPB SCH ×2 (01:13→12:33)
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
[2020-01-04 09:35] LABS: SARS-CoV-2 MS2 Positive; SARS-CoV-2 N Gene Negative; SARS-CoV-2 S Gene Negative; SARS-CoV-2 by NAA Not Detected (NotDetected); SARS-CoV-2 orf1ab Negative
[2020-01-04] MEDS ORDERED: Non-Formulary Item 1 EACH (Hydroxyzine Hcl [Hydroxyzine Hcl] 50 MG Tablet) PO PRN (10:02)
[2020-01-04] MEDS ORDERED: Diazepam 2 MG TAB PO PRN (10:02)
[2020-01-04] MEDS ORDERED: Haloperidol Lactate 5 MG/ML VIAL IM PRN (10:04)
[2020-01-04] MEDS: Sodium Chloride 0.9% 1,000 ML IV SCH ×2 (11:13→21:54)
[2020-01-04] MEDS: Vancomycin HCl 500 MG in Sodium Chloride 0.9% 100 ML IVPB SCH ×2 (11:15→21:55)
--- NOTE | 2020-01-04 18:18 | PDOC.HOSPP ---
- Subjective Encounter Date: 01/04/20 Subjective: the patient was reportedly agitated this morning but his mental status improved in the afternoon. - Objective Vital Signs & Weight: Vital Signs (12 hours) Temp Pulse Resp BP Pulse Ox 01/04/20 11:00 98.0 F 73 18 157/72 H 97 01/04/20 07:42 97.6 F 77 20 155/66 H 97 Weight Weight 130 lb I&O: 01/03/20 01/04/20 01/05/20 06:59 06:59 06:59 Intake Total 956 Output Total 650 Balance 306 Result Diagrams: 01/03/20 19:19 01/03/20 19:19 Additional Labs: Accuchecks 01/04/20 01/04/20 01/04/20 16:22 11:30 04:45 POC Glucose 116 H 137 H 93 Hospitalist ROS - Medication Medications: Active Medications Generic Name Dose Route Start Last Admin Trade Name Freq PRN Reason Stop Dose Admin Diazepam 2 mg 01/04/20 10:02 01/04/20 16:16 Diazepam 2 Mg Tab PO 2 mg TID PRN Administration Anxiety/Agitation Sodium Chloride 1,000 mls @ 75 mls/hr 01/03/20 20:45 01/04/20 11:13 Normal Saline 0.9% IV Not Given .[id number] IRVING Cefepime HCl 2 gm/ Sodium 100 mls @ 200 mls/hr 01/04/20 01:00 01/04/20 12:33 Chloride IVPB 100 mls 0100,1300 IRVING Administration Vancomycin HCl 500 mg/ Sodium 100 mls @ 100 mls/hr 01/04/20 09:00 01/04/20 11:15 Chloride IVPB 100 mls 0900,2100 IRVING Administration - Exam General Appearance: awake alert ENT: normocephalic atraumatic Neck: supple, no JVD Heart: RRR Respiratory: normal chest expansion, no tachypnea Gastrointestinal: soft Extremities: no cyanosis, no clubbing Hosp A/P (1) Complicated urinary tract infection Code(s): N39.0 - URINARY TRACT INFECTION, SITE NOT SPECIFIED Status: Acute (2) Hallucinations Code(s): R44.3 - HALLUCINATIONS, UNSPECIFIED Status: Acute (3) BPH (benign prostatic hyperplasia) Code(s): N40.0 - BENIGN PROSTATIC HYPERPLASIA WITHOUT LOWER URINRY TRACT SYMP Status: Chronic (4) DM type 2 (diabetes mellitus, type 2) Status: Chronic Qualifiers: (5) HTN (hypertension) Code(s): I10 - ESSENTIAL (PRIMARY) HYPERTENSION Status: Chronic Qualifiers: - Plan Urinary tract infection complicated by chronic catheter. Continue IV antibiotics and follow culture results. The patient is alert and oriented but his conversations involve hallucinations and delusions. He does have a history of bipolar disorder. Reconcile his home medications and start Haldol as needed for agitation.
[2020-01-04] MEDS ORDERED: Non-Formulary Item 1 EACH (Trazodone Hcl [Trazodone Hcl] 100 MG Tablet) PO SCH (21:00)
[2020-01-04] MEDS: traZODone HCl 50 MG TAB PO SCH (21:56)
[2020-01-05] MEDS: Sodium Chloride 0.9% 1,000 ML IV SCH ×3 (00:02→16:22)
[2020-01-05] MEDS: hydrOXYzine 25 MG TAB PO PRN ×2 (00:38→20:10)
[2020-01-05] MEDS ORDERED: diphenhydrAMINE 50 MG/ML VIAL IVP SCH (01:45)
[2020-01-05] MEDS: Cefepime 2 GM in Sodium Chloride 0.9% 100 ML IVPB SCH ×2 (05:04→13:15)
[2020-01-05 09:00] LABS: #Basophils 0.1 thou/uL (0.0-0.2); #Eosinphils 0.2 thou/uL (0.0-0.7); #Lymphocytes 1.6 thou/uL (1.20-3.40); #Monocytes 0.7 thou/uL (0.11-0.59); #Neutrophils 3.2 thou/uL (1.40-6.50); %Eosinophils 3.6 % (0.0-10.0); %Lymphocytes 27.7 % (21.0-51.0); %Monocytes 12.6 % (0.0-10.0); Hemoglobin 13.2 g/dL (14.0-18.0); Mean Corpuscular HGB CONC 34.5 g/dL (32.0-36.0); Mean Corpuscular Hemoglobin 33.5 pg (27.0-31.0); Mean Corpuscular Volume 97.1 fL (78.0-98.0); Mean Platelet Volume 7.2 fL (7.4-10.4); Platelet Count 217 thou/uL (130-400); RBC Distribution Width 11.5 % (11.5-14.5); Red Blood Cell (RBC) Count 3.93 mill/uL (4.70-6.10); White Blood Cell (WBC) Count 5.9 thou/uL (4.8-10.8)
[2020-01-05 09:04] LABS: Vancomycin, Trough 5.2 ug/mL
[2020-01-05 09:07] LABS: Anion Gap 14 mmol/L (10-20); BUN (Urea Nitrogen) 8 mg/dL (8.4-25.7); Calc. Creatinine Clearance 82 mL/min (70-130); Calcium 8.4 mg/dL (7.8-10.44); Carbon Dioxide 22 mmol/L (23-31); Chloride 108 mmol/L (98-107); Estimated GFR-MDRD Greater than 90; Glucose 103 mg/dL (80-115); Sodium 140 mmol/L (136-145)
[2020-01-05] MEDS: Vancomycin HCl 500 MG in Sodium Chloride 0.9% 100 ML IVPB SCH (09:12)
[2020-01-05] MEDS: FLUoxetine HCl 10 MG CAP PO SCH (09:12)
[2020-01-05] MEDS: OLANZapine 5 MG TAB PO SCH (09:12)
--- NOTE | 2020-01-05 12:46 | PDOC.HOSPP ---
- Subjective Encounter Date: 01/05/20 (f/u UTI) Encounter Time: 12:44 Subjective: Pt currently sleeping. In discussion with RN, escalating behavior requiring restraints last night and today. RN notes earlier some similar behavior. pt denies any problems. Will wake to answer questions and easily returns to sleep. - Objective Vital Signs & Weight: Vital Signs (12 hours) Temp Pulse Resp BP BP Pulse Ox 01/05/20 08:00 80 18 157/82 H 98 01/05/20 04:00 97.5 F L 86 20 149/89 H 97 Weight Weight 130 lb I&O: 01/04/20 01/05/20 01/06/20 06:59 06:59 06:59 Intake Total 956 1650 Output Total 650 2450 Balance 306 -800 Result Diagrams: 01/05/20 08:31 01/05/20 08:31 Additional Labs: Accuchecks 01/04/20 16:22 POC Glucose 116 H Hospitalist ROS - Medication Medications: Active Medications Generic Name Dose Route Start Last Admin Trade Name Freq PRN Reason Stop Dose Admin Diazepam 2 mg 01/04/20 10:02 01/04/20 16:16 Diazepam 2 Mg Tab PO 2 mg TID PRN Administration Anxiety/Agitation Fluoxetine HCl 10 mg 01/05/20 09:00 01/05/20 09:12 Fluoxetine Hcl 10 Mg Cap PO 10 mg DAILY IRVING Administration Haloperidol Lactate 5 mg 01/04/20 10:04 01/04/20 23:26 Haloperidol Lactate 5 Mg/Ml Vial IM 5 mg Q4H PRN Administration Agitation Hydroxyzine HCl 50 mg 01/04/20 10:13 01/05/20 00:38 Hydroxyzine 25 Mg Tab PO 50 mg Q6H PRN Administration AGITATION Sodium Chloride 1,000 mls @ 75 mls/hr 01/03/20 20:45 01/05/20 12:43 Normal Saline 0.9% IV Not Given .[id number] IRVING Cefepime HCl 2 gm/ Sodium 100 mls @ 200 mls/hr 01/04/20 01:00 01/05/20 05:04 Chloride IVPB 100 mls 0100,1300 IRVING Administration Olanzapine 5 mg 01/05/20 09:00 01/05/20 09:12 Olanzapine 5 Mg Tab PO 5 mg DAILY IRVING Administration Trazodone HCl 100 mg 01/04/20 21:00 01/04/20 21:56 Trazodone Hcl 50 Mg Tab PO 100 mg HS IRVING Administration - Exam Heart: RRR, no murmur Respiratory: CTAB, no wheezes, no rales, no ronchi Gastrointestinal: soft, non-tender, non-distended, normal bowel sounds Extremities: no cyanosis, no clubbing, no edema Hosp A/P (1) Complicated urinary tract infection Code(s): N39.0 - URINARY TRACT INFECTION, SITE NOT SPECIFIED Status: Acute (2) Hallucinations Code(s): R44.3 - HALLUCINATIONS, UNSPECIFIED Status: Acute (3) BPH (benign prostatic hyperplasia) Code(s): N40.0 - BENIGN PROSTATIC HYPERPLASIA WITHOUT LOWER URINRY TRACT SYMP Status: Chronic (4) DM type 2 (diabetes mellitus, type 2) Status: Chronic Qualifiers: (5) HTN (hypertension) Code(s): I10 - ESSENTIAL (PRIMARY) HYPERTENSION Status: Chronic Qualifiers: - Plan Complicated UTI - reviewed urine cx and Pseudomonas that is FQ resistant. WBC is back to normal - consult ID - continue cefepime - d/c vancomycin Encephalopathy with baseline bipolar d/o - remove restraints when considered safer - continue home meds - use prn meds for changes in behavior All meds reviewed and will restart most of them DM2 - controlled - hold home metformin for now - anticipate this can be added back at d/c dvt prophy - lovenox gi prophy - not indicated code status full reviewed plan of care with RN, no questions or further needs at end of eval anticipate d/c after ID recommendations and anything needed is arranged (such as abx)
[2020-01-05] MEDS: Atorvastatin Calcium 40 MG TAB PO SCH (20:08)
[2020-01-05] MEDS: Oxybutynin 5 MG TAB PO SCH (20:09)
[2020-01-05] MEDS: Acetaminophen 325 MG TAB PO PRN (20:09)
[2020-01-05] MEDS: traZODone HCl 50 MG TAB PO SCH (20:10)
[2020-01-05] MEDS: Polyvinyl Alcohol 1.4%/Povidone 0.6% Opth Drops EA EYE SCH (20:27)
[2020-01-05] MEDS ORDERED: Vancomycin 1 GM in Premix Bag 1 BAG IVPB SCH (21:00)
[2020-01-06] MEDS: Cefepime 2 GM in Sodium Chloride 0.9% 100 ML IVPB SCH ×2 (00:38→14:00)
[2020-01-06] MEDS: Sodium Chloride 0.9% 1,000 ML IV SCH (03:01)
[2020-01-06 07:01] LABS: #Eosinphils 0.2 thou/uL (0.0-0.7); #Lymphocytes 1.4 thou/uL (1.20-3.40); #Monocytes 0.4 thou/uL (0.11-0.59); %Basophils 1.2 % (0.0-1.0); %Eosinophils 3.9 % (0.0-10.0); %Lymphocytes 34.1 % (21.0-51.0); %Monocytes 10.1 % (0.0-10.0); %Neutrophils 50.7 % (42.0-75.0); Hemoglobin 12.2 g/dL (14.0-18.0); Mean Corpuscular HGB CONC 33.4 g/dL (32.0-36.0); Mean Corpuscular Hemoglobin 32.2 pg (27.0-31.0); Mean Corpuscular Volume 96.5 fL (78.0-98.0); Mean Platelet Volume 7.3 fL (7.4-10.4); Platelet Count 205 thou/uL (130-400); RBC Distribution Width 11.8 % (11.5-14.5); Red Blood Cell (RBC) Count 3.77 mill/uL (4.70-6.10)
[2020-01-06 07:10] LABS: Anion Gap 11 mmol/L (10-20); BUN (Urea Nitrogen) 8 mg/dL (8.4-25.7); Calc. Creatinine Clearance 81 mL/min (70-130); Calcium 8.2 mg/dL (7.8-10.44); Carbon Dioxide 24 mmol/L (23-31); Chloride 111 mmol/L (98-107); Estimated GFR-MDRD Greater than 90; Glucose 97 mg/dL (80-115); Potassium 3.7 mmol/L (3.5-5.1); Sodium 142 mmol/L (136-145)
[2020-01-06] MEDS: OLANZapine 5 MG TAB PO SCH (09:46)
[2020-01-06] MEDS: Losartan 25 MG TAB PO SCH (09:47)
[2020-01-06] MEDS: Oxybutynin 5 MG TAB PO SCH ×2 (09:47→19:55)
[2020-01-06] MEDS: FLUoxetine HCl 10 MG CAP PO SCH (09:47)
[2020-01-06] MEDS: Polyvinyl Alcohol 1.4%/Povidone 0.6% Opth Drops EA EYE SCH ×2 (09:48→20:16)
[2020-01-06] MEDS: Polyethylene Glycol 3350 17 GM Packet PO SCH (09:48)
[2020-01-06] MEDS: hydrOXYzine 25 MG TAB PO PRN ×2 (09:49→19:55)
--- NOTE | 2020-01-06 11:49 | PDOC.HOSPP ---
- Subjective Encounter Date: 01/06/20 (f/u complicated UTI) Encounter Time: 11:47 Subjective: No overnight events. RN reports restraints have been off since yesterday evening. RN states atarax helps pt remain calm. pt sleeping - awakens easily. When asked about pain - he reports on the left side, but unable to localize it. when examining both sides of abdomen and then legs - he says yes to pain being located in each area. - Objective Vital Signs & Weight: Vital Signs (12 hours) Temp Pulse Resp BP Pulse Ox 01/06/20 07:35 97.8 F 64 20 155/71 H 98 Weight Weight 130 lb I&O: 01/05/20 01/06/20 01/07/20 06:59 06:59 06:59 Intake Total 1650 3920 Output Total 2450 3150 Balance -800 770 Result Diagrams: 01/06/20 06:42 01/06/20 06:42 Additional Labs: Accuchecks 01/06/20 01/06/20 01/05/20 11: 06:13 16:15 POC Glucose 189 H 95 110 H 01/05/20 12:48 POC Glucose 96 Hospitalist ROS - Medication Medications: Active Medications Generic Name Dose Route Start Last Admin Trade Name Freq PRN Reason Stop Dose Admin Acetaminophen 650 mg 01/03/20 20:40 01/05/20 20:09 Acetaminophen 325 Mg Tab PO 650 mg Q4H PRN Administration Headache/Fever/Mild Pain (1-3) Atorvastatin Calcium 40 mg 01/05/20 21:00 01/05/20 20:08 Atorvastatin Calcium 40 Mg Tab PO 40 mg HS IRVING Administration Diazepam 2 mg 01/04/20 10:02 01/04/20 16:16 Diazepam 2 Mg Tab PO 2 mg TID PRN Administration Anxiety/Agitation Fluoxetine HCl 10 mg 01/05/20 09:00 01/06/20 09:47 Fluoxetine Hcl 10 Mg Cap PO 10 mg DAILY IRVING Administration Haloperidol Lactate 5 mg 01/04/20 10:04 01/04/20 23:26 Haloperidol Lactate 5 Mg/Ml Vial IM 5 mg Q4H PRN Administration Agitation Hydroxyzine HCl 50 mg 01/04/20 10:13 01/06/20 09:49 Hydroxyzine 25 Mg Tab PO 50 mg Q6H PRN Administration AGITATION Cefepime HCl 2 gm/ Sodium 100 mls @ 200 mls/hr 01/04/20 01:00 01/06/20 00:38 Chloride IVPB 100 mls 0100,1300 IRVING Administration Losartan Potassium 25 mg 01/06/20 09:00 01/06/20 09:47 Losartan 25 Mg Tab PO 25 mg DAILY IRVING Administration Olanzapine 5 mg 01/05/20 09:00 01/06/20 09:46 Olanzapine 5 Mg Tab PO 5 mg DAILY IRVING Administration Oxybutynin Chloride 5 mg 01/05/20 21:00 01/06/20 09:47 Oxybutynin 5 Mg Tab PO 5 mg BID IRVING Administration Polyethylene Glycol 17 gm 01/06/20 09:00 01/06/20 09:48 Polyethylene Glycol 3350 17 Gm Packet PO 17 gm DAILY IRVING Administration Polyvinyl Alcohol/Povidone 1 each 01/05/20 21:00 01/06/20 09:48 Polyvinyl Alcohol 1.4%/Povidone 0.6% Opth Drops EA EYE 1 each BID IRVING Administration Trazodone HCl 100 mg 01/04/20 21:00 01/05/20 20:10 Trazodone Hcl 50 Mg Tab PO 100 mg HS IRVING Administration - Exam General Appearance: NAD Heart: RRR, no murmur Respiratory: CTAB, no wheezes Gastrointestinal: soft, non-tender, non-distended, normal bowel sounds Extremities: no cyanosis, no clubbing, no edema Psychiatric - other findings: awakens easily and falls back to sleep easily. Hosp A/P (1) Complicated urinary tract infection Code(s): N39.0 - URINARY TRACT INFECTION, SITE NOT SPECIFIED Status: Acute (2) Hallucinations Code(s): R44.3 - HALLUCINATIONS, UNSPECIFIED Status: Acute (3) BPH (benign prostatic hyperplasia) Code(s): N40.0 - BENIGN PROSTATIC HYPERPLASIA WITHOUT LOWER URINRY TRACT SYMP Status: Chronic (4) DM type 2 (diabetes mellitus, type 2) Status: Chronic Qualifiers: (5) HTN (hypertension) Code(s): I10 - ESSENTIAL (PRIMARY) HYPERTENSION Status: Chronic Qualifiers: - Plan Complicated UTI - reviewed urine cx and Pseudomonas and Enterococcus with a penicillin allergy - continue cefepime - Vancomycin was d/c yesterday - may restart this pending Dr. Miller recommendations Encephalopathy with baseline bipolar d/o - appears resolved Most of patient's home meds resumed. No indication to continue levaquin on his home medication list, or some other meds. DM2 - controlled - hold home metformin for now - anticipate this can be added back at d/c dvt prophy - lovenox gi prophy - not indicated code status full reviewed plan of care with RN, no questions or further needs at end of eval anticipate d/c after ID recommendations and anything needed is arranged (such as abx)
[2020-01-06] MEDS ORDERED: Vancomycin 1 GM in Premix Bag 1 BAG IVPB SCH (16:00)
--- NOTE | 2020-01-06 17:23 | CON ---
DATE OF CONSULTATION: 01/06/2020 REASON FOR CONSULTATION: Evaluate urinary tract and findings in urinalysis/culture. HISTORY OF PRESENT ILLNESS: A 69-year-old who has a history of hypertension, type 2 diabetes, BPH and chronic urinary retention requiring suprapubic catheter placement, who was admitted in February of this year with abdominal pain and left lower extremity weakness, nausea, vomiting, and back pain. There was evidence of fecal impaction and constipation associated with right hydronephrosis and hydroureter. The patient had exchange of suprapubic catheter on March 12 and aggressive bowel regimen. He had an MRI of the spine, which showed no evidence of stenosis, and it was felt that the weakness was probably due to deconditioning. He was discharged on insulin Levemir, vitamin B12, calcium carbonate, Lipitor, aspirin, metformin, Singulair, oxybutynin, trazodone. On June 27, 2019, the patient was discharged from the second admission. This time, for a left 4th finger abscess due to MRSA. He also had identified hemiparesis and the interpretation was that it was due to the late effects of prior CVA, although this is not well documented. He did have a brain MRI on March 12, which did not show any evidence of intracranial abnormality, so the hypothesis of CVA is not confirmed. At this time, he presents, brought by family members and [facility]akers [facility] the [facility] because of violent outbursts. Initial findings included blood pressure 130/70, pulse 109, respirations 18, temperature 98.4, O2 saturation 94% on room air. He remained afebrile. The exam was not particularly remarkable. He was described as confused and agitated in the emergency room. An abdomen and pelvis CT was done on December 31 and this showed a suprapubic catheter. No other acute findings. Moderate large volume of colonic stool throughout the large intestine. The previously noted hydronephrosis had resolved. Other findings on admission included white cell count 11.2, hemoglobin 14, platelets 265, 81% neutrophils. Sodium 140, creatinine 0.97. Liver profile normal. Albumin 4.2. TSH normal. Urinalysis was abnormal as expected with both rbc's and wbc's greater than 50. Some calcium oxalate crystals noted. Culture of urine showed P aeruginosa, another gram-negative and Enterococcus faecalis. Similar findings that have been made previously. Then, the patient has had also Proteus mirabilis and MRSA from the urine at the beginning of this year. Anyway, multiple urine cultures have been always positive as expected through the past few years. Two sets of blood culture, no growth at 48 hours. Currently, Mr. Rendon is feeling well. He denies any headaches. No sore throat, odynophagia, dysphagia. No dyspnea or cough. No back pain. No abdominal pain. He does not have any evidence of suprapubic pain or dysuria. The last time the catheter was exchanged was last month. PAST MEDICAL HISTORY: Includes BPH, hyperlipidemia, hypertension, diabetes type 2, neurogenic bladder with obstruction, suprapubic catheter, GERD, asthma, TIA with steroid injections, suprapubic catheter placement, history of anxiety, bipolar disorder, hallucinations. SOCIAL HISTORY: [facility] in a [facility]. Never smoker. No alcoholic beverage use or drug use. ALLERGIES: BARIUM, PENICILLIN. CURRENT MEDICATIONS: 1. Cefepime. 2. Diazepam. 3. Insulin. 4. Olanzapine. 5. Oxybutynin. 6. Vancomycin. FAMILY HISTORY: Noncontributory. PHYSICAL EXAMINATION: VITAL SIGNS: He has been afebrile since admission, blood pressure 150/71, heart rate 64, respiratory rate 16 to 20, O2 saturation 98. SKIN: The patient has erythema or bruising first toe right foot. In the suprapubic catheter exit site, there is a little bit of maceration around it, but no tenderness. Peripheral IV access. No lymphadenopathy. HEENT: Ocular movements conjugate. Oral cavity with no teeth in the upper maxilla, numerous teeth in the lower, some decay. NECK: Supple. No jugular vein distention. LUNGS: Symmetric, clear breath sounds. HEART: S1 and S2, regular rate. No S3 or S4. ABDOMEN: Soft. No tenderness. No suprapubic tenderness or bladder distention. EXTREMITIES: No joint inflammatory activity. Moves extremities equally. Plantar responses are flexor. Pulses 1+ in dorsalis pedis. NEUROLOGIC: He is awake, knows his name. He was quite compliant and appeared happy and was not agitated at all. LABORATORY DATA AND LATEST FINDINGS: White cell count 4.0, hemoglobin 12.0, platelets 205, 50% neutrophils, 34% lymphocytes. The latest chemistries with creatinine 0.73, calcium 8.2. ASSESSMENT: Bipolar disorder, neurogenic bladder with obstruction due to BPH with suprapubic catheter, behavioral disturbance with agitation and hostile behavior in the [facility], abnormal findings in urinalysis and urine culture, mild neutrophilia. DISCUSSION: The finding of urinalysis abnormalities and positive urine culture is the default situation in patients with suprapubic catheter, so we cannot use those findings at face value and always have to take into account clinically associated symptoms. So, he does not seem to have any right now. So, I would advise discontinuation of antimicrobial therapy. He still has a lot of stool and continuation of the bowel program needs to be emphasized. The patients with suprapubic catheter tend to have much less rates of invasive infections than patients with urethral catheters, probably because there is less prostatitis associated with obstruction of prostatic ducts. Sometimes, patients with suprapubic catheter, nonetheless, will develop complications including invasive UTIs, particularly in the face of obstruction or decreased urine flow due to volume depletion. But at this point, I would advise discontinuation of antimicrobials. Job ID: [id number]
[2020-01-06] MEDS: Acetaminophen 325 MG TAB PO PRN (19:53)
[2020-01-06] MEDS: traZODone HCl 50 MG TAB PO SCH (19:54)
[2020-01-06] MEDS: Atorvastatin Calcium 40 MG TAB PO SCH (19:55)
[2020-01-07] MEDS: Losartan 25 MG TAB PO SCH (08:40)
[2020-01-07] MEDS: Oxybutynin 5 MG TAB PO SCH (08:40)
[2020-01-07] MEDS: hydrOXYzine 25 MG TAB PO PRN (08:41)
[2020-01-07] MEDS: FLUoxetine HCl 10 MG CAP PO SCH (08:41)
[2020-01-07] MEDS: Polyethylene Glycol 3350 17 GM Packet PO SCH (08:41)
[2020-01-07] MEDS: Polyvinyl Alcohol 1.4%/Povidone 0.6% Opth Drops EA EYE SCH (08:42)
[2020-01-07] MEDS: OLANZapine 5 MG TAB PO SCH (10:12)
[2020-01-07 13:39] VITALS: BP 130/74; TEMP 97.7
[2020-01-07] MEDS ORDERED: Senokot S 8.6-50 MG TAB PO SCH (21:00)
--- NOTE | 2020-01-08 03:18 | DIS ---
DATE OF ADMISSION: 01/03/2020 DATE OF DISCHARGE: 01/07/2020 CONSULTANTS: Dr. Miller of Infectious Disease. MEDICATIONS: Reconciled at discharge. New medications: Senokot-S one tablet b.i.d. p.r.n. constipation. Medications discontinued: Levofloxacin as this medication is resistant to the Pseudomonas on urine culture, recommend this not be used in the future just based on the patient's prior urine culture results. Medications to continue: 1. Tylenol with Codeine 1 or 2 tablets every 6 hours as needed. 2. Artificial Tears 1 or 2 drops twice a day. 3. Atorvastatin 40 mg at bedtime. 4. Vitamin B12 500 mcg daily. 5. Diazepam 2 mg t.i.d. p.r.n. 6. Fluoxetine 10 mg daily. 7. Fluticasone one spray each nostril daily. 8. Humalog sliding scale as directed. 9. Losartan 25 mg once daily. 10. Olanzapine 5 mg daily. 11. Oxybutynin 5 mg b.i.d. 12. Polyethylene glycol 17 g daily. 13. Hydroxyzine 50 mg every 6 hours as needed for agitation. 14. Metformin 500 mg b.i.d. with meals. 15. Trazodone 100 mg at bedtime. FINAL DIAGNOSES: 1. Encephalopathy, resolved. 2. Possible urinary tract infection in a patient with neurogenic bladder and suprapubic catheter. 3. Constipation. SECONDARY DIAGNOSES: 1. Bipolar disorder. 2. Hypertension. 3. Diabetes mellitus type 2. 4. Dyslipidemia. 5. History of stroke. 6. Anemia, mild and chronic. HISTORY OF PRESENT ILLNESS: Mr. Rendon is a 69-year-old male with the above medical problems, who presented to the emergency room with the complaints of chest pain and hallucinations. The patient had become increasingly violent at the [facility] and was brought to the emergency room. The patient did have an abnormal urinalysis and was started on antibiotics with cefepime and vancomycin. HOSPITAL COURSE: The patient was continued on cefepime and vancomycin. The initial urine culture showed Pseudomonas resistant to fluoroquinolones, followed by the next day (yesterday) Enterococcus. The vancomycin was discontinued with the Pseudomonas results. Because of the two bacteria on culture and a history of recurrent Pseudomonas in urine culture, Infectious Disease was consulted. Dr. Miller evaluated the patient yesterday and thinks this is colonization rather than infection. He recommended discontinuing antibiotics and addressing constipation. The patient is on a daily MiraLAX, we will add some as needed Senokot-S for this. The patient early in the hospitalization was under restraints due to this change in behavior. He has received as needed Haldol, with the last dose on the . He has also received as needed Atarax and has tolerated this well. He has been out of restraints for at least 2 days, cooperative, and calm. The patient is overall improved, cooperative and calm, and he does meet criteria for discharge. I discussed this with his cousin, Sierra, who is his power of assistant county attorney. I discussed Dr. Miller, his recommendations to stop antibiotics, and concern that the urine cultures may simply reflect colonization rather than true infection. She did agree with discharge, and has arranged another facility for the patient to go. PHYSICAL EXAMINATION: VITAL SIGNS: On day of discharge, temp 98.1, pulse 53, respirations 18, sat 98% on room air. Blood pressure 124/72. GENERAL: Awake, alert, responsive, not in apparent distress. LUNGS: Clear to auscultation. No audible wheezing, rhonchi, or rales. HEART: Normal S1 and S2. Regular rate and rhythm. No significant murmur. ABDOMEN: Soft with present bowel sounds. EXTREMITIES: No edema. [place] FINDINGS AND TEST RESULTS: CBC on 01/05 4.0, 12.2, 36.4, 205. On 01/02 11.2, 14.4, 42.1, 265. Chemistry on 01/05 142, 3.7, 111, 24, 8, 0.73, 97. Urinalysis present protein, ketones, 250 leuk esterase, greater than 50 red blood cells, greater than 50 white blood cells, 3+ calcium oxalate crystals present. Urine bacteria. Tox screen positive for opiates and benzos, otherwise negative. COVID negative. Blood cultures x2 negative from January 02. Urine culture, Pseudomonas resistant to ciprofloxacin, levofloxacin, and enterococcus, resistant to ciprofloxacin and levofloxacin, streptomycin, and tetracycline. DIET: Heart healthy, carbohydrate consistent. ACTIVITY: As tolerated. Follow up with the primary care physician within a week to review this hospitalization, assist with managing any behavioral concerns, and address any other health issues. CODE STATUS: Full. DISCHARGE DISPOSITION: To [facility] facility. Total time coordinating discharge is 45 minutes. Job ID: [id number] MTDD
--- NOTE | 2020-01-10 12:05 | PQF ---
CLINICAL DOCUMENTATION CLARIFICATION FORM: Dear : Latoya Tolliver MD Date / Time: 01/10/2020 Please exercise your independent, professional judgment in responding to the clarification form. Clinical indicators are provided on the bottom of this form for your review Please check appropriate box(es) to clarify if the following diagnosis has been ruled in our ruled out: [ ] Ruled in UTI [ ] Continue to treat [ ] Resolved [ ] Ruled out UTI [ ] Improving [ XX ] Cannot rule out diagnosis - possible UTI as source [ ] Other diagnosis (Please specify if any) [ ] Unable to determine In addition, please specify: Present on Admission (POA): [ XX ] Yes [ ] No [ ] Unable to determine Physician Signature: Date/Time: For continuity of documentation, please document condition throughout progress notes and discharge summary. Thank You. To be completed by CDI/Coding staff for physician review: Present Clinical Indicators - Signs / Symptoms / Labs Results and Location in Medical Record [x] Urinary tract infection ED provider report on 01/02 [x] Urinary tract infection complicated by chronic catheter Hospitalist PN on 01/03 [x] Discharge diagnosis:Possible UTI in a patient with neurogenic bladder & suprapubic catheter Discharge summary on 01/07 [x] Dr. Miller evaluated the patient yesterday & thinks this is colonization rather than infection. He recommended discontinuing antibiotics and addressing constipation Discharge summary on 01/07 Present Risk Factors Results and Location in Medical Record [x] History of UTI in past H&P on 01/02 [ ] Present Treatments Results and Location in Medical Record [x] Rocephin 1gm Medication on 01/02 [x] Vancomycin 1gm IV Medication on 01/02 [ ] [ ] CDS/Instructor [employer] Signature: AAS Phone #: Date/Time: 01/10/2020 This is a permanent part of the Medical Record [facility]
== END 2020-01-07 15:25 | disposition home or self-care (01) | DRG 698 ==
LOC: ERS 17:48 → T4-B 20:15
PROVIDERS: ADMIT Internal Medicine; ATTEND Family Medicine
DX: T83.511A Infection and inflammatory reaction due to indwelling urethral catheter, initial encounter (principal); G93.41 Metabolic encephalopathy; Z16.23 Resistance to quinolones and fluoroquinolones; Z16.11 Resistance to penicillins; R45.851 Suicidal ideations; F31.9 Bipolar disorder, unspecified; N39.0 Urinary tract infection, site not specified; F79 Unspecified intellectual disabilities; E78.00 Pure hypercholesterolemia, unspecified; E11.9 Type 2 diabetes mellitus without complications; I10 Essential (primary) hypertension; K21.9 Gastro-esophageal reflux disease without esophagitis; F41.9 Anxiety disorder, unspecified; K59.00 Constipation, unspecified; D64.9 Anemia, unspecified; B96.5 Pseudomonas (aeruginosa) (mallei) (pseudomallei) as the cause of diseases classified elsewhere; B95.2 Enterococcus as the cause of diseases classified elsewhere; J45.909 Unspecified asthma, uncomplicated; N40.0 Benign prostatic hyperplasia without lower urinary tract symptoms; Z88.0 Allergy status to penicillin; Z86.73 Personal history of transient ischemic attack (TIA), and cerebral infarction without residual deficits; Z79.899 Other long term (current) drug therapy; Z79.2 Long term (current) use of antibiotics; Z20.828 Contact with and (suspected) exposure to other viral communicable diseases; R33.9 Retention of urine, unspecified; N31.9 Neuromuscular dysfunction of bladder, unspecified; E78.5 Hyperlipidemia, unspecified; Z79.82 Long term (current) use of aspirin; Z79.4 Long term (current) use of insulin; R10.9 Unspecified abdominal pain; Y83.9 Surgical procedure, unspecified as the cause of abnormal reaction of the patient, or of later complication, without mention of misadventure at the time of the procedure
CPT/HCPCS: 36415; 36416; 70450; 71045; 72125; 72131; 72192; 74177; 80048; 80053; 80202; 80306; 80307; 81003; 81015; 82550; 83605; 83690; 84443; 84484; 85025; 85610; 85730; 87040; 87077; 87086; 87186; 87635; 93005; 96365; 96367; 96375; 99285; J0692; J0696; J1630; J2060; J2270; J2405; J3370; J3490; Q0162; Q9967; U0003

== ENCOUNTER 2020-01-14 11:13 | Inpatient (IN) | payer MEDICARE, MEDICAID ==
[~2020-01-14 11:13] MED LIST changes: +Iopamidol 370 76% 100 ML VIAL ONE; -Iopamidol-370 76% 500 ML 1 ML ONE
--- NOTE | 2020-01-14 11:35 | CT ---
CT HEAD WITHOUT IV CONTRAST COMPARISON: 01/01/2020 HISTORY: Level 1 stroke. Right-sided deficits. Last seen normal at 0730 hours. TECHNIQUE: Axial CT imaging at 5 mm intervals from vertex through skull base without contrast FINDINGS: Mild cerebral volume loss is present. There is no evidence of an acute infarction, hemorrhage, mass e ffect, or midline shift. The ventricular system is normal in size, shape, and position. Skull base has a normal CT appearance. Right mastoid air cells are not well pneumatized. There is suggestion of desiccation of the right mid dle ear cavity only partially imaged on this exam due to slice selection. However, this is similar to prior exam. Finding was also seen on CT head on 03/11/2019. Osseous structures appear intact.No interval change from prior studies. IMPRESSION: 1. No acute intracranial abnormality demonstrated. 2. Right mastoid air cells are not well pneumatized, but there is suggestion of opacification of the visualized right middle ear cavity. This is unchanged compared to prior studies dating back to 03/11/2019. 3. Above findings discussed with Dr. Roberts in the emergency department on 01/14/2020 at [address]
[2020-01-14 11:59] LABS: #Basophils 0.1 thou/uL (0.0-0.2); #Eosinphils 0.2 thou/uL (0.0-0.7); #Lymphocytes 1.7 thou/uL (1.20-3.40); #Monocytes 0.5 thou/uL (0.11-0.59); #Neutrophils 3.7 thou/uL (1.40-6.50); %Basophils 0.9 % (0.0-1.0); %Eosinophils 3.5 % (0.0-10.0); %Lymphocytes 28.1 % (21.0-51.0); %Monocytes 8.7 % (0.0-10.0); %Neutrophils 58.9 % (42.0-75.0); Hemoglobin 13.8 g/dL (14.0-18.0); Mean Corpuscular HGB CONC 34.3 g/dL (32.0-36.0); Mean Corpuscular Hemoglobin 33.5 pg (27.0-31.0); Mean Corpuscular Volume 97.6 fL (78.0-98.0); Platelet Count 205 thou/uL (130-400); RBC Distribution Width 11.7 % (11.5-14.5); Red Blood Cell (RBC) Count 4.13 mill/uL (4.70-6.10); White Blood Cell (WBC) Count 6.2 thou/uL (4.8-10.8)
[2020-01-14 12:01] LABS: PTT 31.6 sec (22.9-36.1); Prothrombin Time 13.1 sec (12.0-14.7)
[2020-01-14 12:14] LABS: ALT (SGPT) 18 U/L (8-55); AST (SGOT) 23 U/L (5-34); Albumin 4.2 g/dL (3.4-4.8); Alkaline Phosphatase 97 U/L (40-110); Anion Gap 13 mmol/L (10-20); BUN (Urea Nitrogen) 11 mg/dL (8.4-25.7); Bilirubin, Total 0.4 mg/dL (0.2-1.2); CK (CPK) 79 U/L (30-200); Calc. Creatinine Clearance 0 mL/min (70-130); Calcium 9.5 mg/dL (7.8-10.44); Carbon Dioxide 25 mmol/L (23-31); Chloride 105 mmol/L (98-107); Estimated GFR-MDRD 90; Globulin 3.1 g/dL (2.4-3.5); Glucose 94 mg/dL (80-115); Protein, Total 7.3 g/dL (5.8-8.1); Sodium 139 mmol/L (136-145)
[2020-01-14] MEDS ORDERED: Mag-Al 1200 mg/1200 mg/30 ML UDCUP PO PRN (13:52)
[2020-01-14] MEDS ORDERED: Ondansetron PF 4 MG/2 ML Vial IVP PRN (13:52)
[2020-01-14] MEDS ORDERED: Dextrose 50% Abboject 50 ML SYRINGE SLOW IVP PRN (13:52)
[2020-01-14] MEDS ORDERED: niCARdipine 25 MG in Sodium Chloride 0.9% 250 ML 250 ML IVPB PRN (13:52)
[2020-01-14] MEDS ORDERED: Acetaminophen 325 MG TAB PO PRN (13:52)
[2020-01-14] MEDS ORDERED: hydrALAZINE 20 MG/ML VIAL SLOW IVP PRN (13:52)
[2020-01-14] MEDS ORDERED: Senokot S 8.6-50 MG TAB PO PRN ×2 (13:52)
[2020-01-14] MEDS ORDERED: HumaLOG 300 UNITS/3 ML VIAL SC PRN (13:52)
[2020-01-14] MEDS ORDERED: Labetalol HCl 100 MG/20 ML VIAL SLOW IVP PRN (13:52)
[2020-01-14] MEDS ORDERED: Bisacodyl 10 MG SUPP PR PRN (13:52)
[2020-01-14] MEDS ORDERED: Guaifenesin DM 100-10/5 ML UDCUP PO PRN (13:52)
[2020-01-14] MEDS ORDERED: Dextrose 5% in Water 1,000 ML IV PRN (13:52)
[2020-01-14] MEDS ORDERED: hydrOXYzine 25 MG TAB PO PRN (14:07)
--- NOTE | 2020-01-14 14:49 | HP ---
REASON FOR ADMISSION: The patient is status post tPA for left hemiparesis. HISTORY OF PRESENTING ILLNESS: The patient was sent over from [facility] for left-sided weakness, slurred speech, and this happened around 7:30 in the morning. The patient was brought here and has had a CT angio of brain done, which did not reveal any acute CVA or aneurysm or stenosis. As the patient was within the window with weakness still present, the patient was given tPA in the ER. He is currently moving all extremities. He has some difficulty speaking, but mostly, he can communicate. He has no complaints of fever, cough, or expectoration. He has not had any COVID in the past. PAST MEDICAL AND SURGICAL HISTORY: History of benign prostatic hypertrophy, suprapubic catheter for neuromuscular dysfunction of bladder, underlying psychiatric disorder. The patient was recently discharged on the after being hospitalized here for UTI, encephalopathy, and constipation. Bipolar disorder, diabetes mellitus type 2, hypertension, history of prior CVA x2, chronic anemia, dyslipidemia, possible intellectual disability, history of asthma. PERSONAL HISTORY: Does not abuse alcohol or drugs. No history of smoking. FAMILY HISTORY: Diabetes. CODE STATUS: Full. CURRENT MEDICATIONS: The patient is on; 1. Tylenol with Codeine p.r.n. 2. Artificial Tears. 3. Lipitor 40 mg p.o. at bedtime. 4. Vitamin B12, 1000 mcg p.o. daily. 5. Hydroxyzine 50 mg twice daily for anxiety. 6. Losartan 25 mg p.o. q.a.m. 7. Metformin 500 mg p.o. twice daily. 8. MiraLAX 17 g daily. 9. Olanzapine 5 mg p.o. daily. 10. Oxybutynin extended release 5 mg daily. 11. Zyprexa 10 mg p.o. q.a.m. 12. Humalog sliding scale. 13. Senna tablets daily. 14. Trazodone 150 mg p.o. at bedtime. ALLERGIES: ALLERGIC TO PENICILLIN. REVIEW OF SYSTEMS: CONSTITUTIONAL: Negative for weight loss or gain, ability to conduct usual activities. SKIN: Negative for rash, itching. EYES: Negative for double vision, pain. ENT/MOUTH: Negative for nose bleeding, neck stiffness, pain, tenderness. CARDIOVASCULAR: Negative for palpitations, dyspnea on exertion, orthopnea. RESPIRATORY: Negative for shortness of breath, wheezing, cough, hemoptysis, fever or night sweats. GASTROINTESTINAL: Negative for poor appetite, abdominal pain, heartburn, nausea, vomiting, constipation, or diarrhea. GENITOURINARY: Negative for urgency, frequency, dysuria, nocturia. MUSCULOSKELETAL: Negative for pain, swelling. NEUROLOGIC/PSYCHIATRIC: Negative for anxiety, depression. ALLERGY/IMMUNOLOGIC: Negative for skin rash, bleeding tendency. PHYSICAL EXAMINATION: GENERAL: The patient is a 69-year-old male, who is currently not in any acute distress. He is currently receiving tPA. VITAL SIGNS: Blood pressure 140/84, pulse 90 per minute, respiratory rate 20 per minute, temperature 98 degrees Fahrenheit, saturating 99% on room air. NECK: Supple. No elevated JVD. HEENT: Eyes; extraocular muscles intact. Pupils are reacting to light. Oral cavity, mucous membranes are dry. No exudates or congestion. CARDIOVASCULAR SYSTEM: S1 and S2 heard, regular rhythm. RESPIRATORY SYSTEM: Air entry 1+ bilateral. No rales or rhonchi. ABDOMEN: Soft. Bowel sounds heard. No tenderness, rigidity, or guarding. Has suprapubic catheter in place. EXTREMITIES: No peripheral edema or calf tenderness. VASCULAR SYSTEM: Peripheral pulses 1+ bilateral. No ischemic ulcerations or gangrene. CENTRAL NERVOUS SYSTEM: Left upper and lower extremity strength is around 3/5, right is 5/5. Cranial nerves are grossly intact. Gait was not tested. PSYCHIATRIC SYSTEM: No obvious hallucinations or delusions. LABORATORY DATA: EKG done shows normal sinus rhythm. CT brain without contrast done showed no acute intracranial abnormality. Right mastoid air cells were not pneumatized with possible suggestion of opacification of right middle ear cavity. This is unchanged when compared to prior studies done in February of 2019. CT angiogram of the head and neck showed no hemodynamically significant stenosis, occlusion, or aneurysm formation. White count of 6, hemoglobin and hematocrit are 13 and 40, platelet count 205, MCV is 97, with 58% neutrophils. PT, INR, and PTT are within normal limits. Electrolytes are stable. BUN 11, creatinine 0.8, serum glucose 94. Liver enzymes within normal limits. Albumin 4.2. Troponin-I negative. CLINICAL IMPRESSION AND PLAN: The patient will be admitted to ICU, status post tPA for left hemiparesis on arrival. We will follow post tPA protocol. We will continue him on aspirin, Lipitor, Prozac, vitamin B12, hydroxyzine, Cozaar, metformin, Zyprexa, oxybutynin, trazodone as before. We will obtain consultation with Dr. Gardner from Neurology, MRI without contrast. Echo with 2D Doppler for LV function will be obtained as well. The patient has underlying intellectual disability in addition to presenting with current neurologic symptoms, and clinically accurate neurologic exam is difficult. Even before testing, the patient says he is weak on the left side. Job ID: [id number]
[2020-01-14 15:11] LABS: SARS-CoV-2 NAA Rapid Test Not Detected (NotDetected)
--- NOTE | 2020-01-14 15:53 | CT ---
EXAM: CT ANGIOGRAM OF THE HEAD AND NECK INDICATION: Level 1 stroke. Seen normal at 7:30 AM. Right-sided deficit COMPARISON: 03/11/2019 TECHNIQUE: CT angiogram of the head and neck are performed in the axial plane. Three-dimensional refo rmatted images are submitted for interpretation. FINDINGS: CTA OF THE HEAD WITH AND WITHOUT CONTRAST: POSTCONTRAST CT OF BRAIN: Pathologic enhancement: No pathologic enhancement the brain. Postcontrast soft tissue neck CT: Aerodigestive tract:Aerodigestive tract is patent. No mucosal abnormality. Sinuses: Adequate aeration of the paranasal sinuses. Stable sclerosis and opacification of the right mastoid air cells. Adequate aeration of the left mastoid air cells. Stable opacification of the right middle ear.. Orbits: Bilateral ocular lenses are appropriately located. Both globes are intact. Retrobulbar fat is preserved. Symmetric attenuation the optic nerves and ocular rectus muscles. Salivary glands:Appropriate attenuation Thyroid gland: Appropriate attenuation Lymph nodes: No evidence of lymphadenopathy by size criteria. Paraspinal muscles: Symmetric attenuation of the sternocleidomastoid muscles. Appropriate attenuation of the paraspinal muscles. Cervical spine:Vertebral body height is maintained. No fracture. No significant central canal stenosi s or significant neural foraminal narrowing. Limited evaluation by technique. Upper mediastinum and lung apices: Chronic changes. No acute abnormality. CTA OF THE NECK WITH CONTRAST: Aorta: Atherosclerosis of the visualized aorta. There is combination of calcified and noncalcified pl aque without significant luminal narrowing. There is a common origin of the right innominate artery and left common carotid artery. Right carotid artery: Appropriate enhancement and luminal diameter of the innominate artery, common c arotid artery, carotid bifurcation and into terminal carotid artery. No significant stenosis based upon NASCET criteria. Left carotid: Appropriate enhancement and luminal diameter of the common carotid artery, carotid bifu rcation and internal carotid artery. No significant stenosis based upon NASCET criteria. Subclavian arteries:Patent and symmetric. Vertebral arteries:Patent throughout their course in the neck. Dominant left vertebral artery. CTA OF THE BRAIN: Intracranial internal carotid arteries:Appropriate enhancement and luminal diameter. Anterior circulation: Appropriate enhancement and luminal diameter the A1 segment, proximal A2 segmen t, M1 segment and proximal MCA branches. Intracranial vertebral arteries: Patent. Bilateral PICA artery origins are normal. Posterior circulation: Both vertebral arteries supply normal caliber basilar artery. Bilateral P1 seg ments have appropriate enhancement and luminal diameter. IMPRESSION: 1. No hemodynamically significant stenosis, occlusion or aneurysmal formation. 2. Results of study discussed with Dr. Roberts 01/14/2020 at 11:59 AM Code CR Transcribed Date/Time: 01/14/2020 3:53 PM
--- NOTE | 2020-01-14 18:23 | CON ---
NEUROLOGY CONSULTATION DATE OF CONSULTATION: 01/14/2020 REASON FOR CONSULTATION: Left hemiparesis, status post tPA. HISTORY OF PRESENT ILLNESS: Mr. Rendon is a 69-year-old male with history significant for benign prostatic hypertrophy and underlying psychiatric disorder, transferred from the [facility] with left-sided weakness, slurred speech. The episode started around 7:30 this morning. He was brought to the emergency room around [address] was done, which was negative for acute intracranial pathology. CTA of the head and neck did not reveal hemodynamically significant stenosis. He was in the window for tPA, so he was given tPA. At the time of presentation, his NIH Stroke Scale was 14 and at the time of neurological evaluation, his NIH Stroke Scale was 4. He came with left hemiparesis, but was able to move left upper and lower extremity after tPA and his slurred speech also improved. The patient denies any chest pain, abdominal pain, fever, cough, recent sick contacts or exposure to COVID. He also denies nausea, vomiting, headache, vertigo, chest pain, or abdominal pain. REVIEW OF SYSTEMS: All systems reviewed and were negative except the pertinent positives and negatives mentioned in the HPI. PAST MEDICAL HISTORY: Prior CVA x2, hypertension, diabetes mellitus, bipolar disorder, dyslipidemia, potential intellectual disability, history of asthma, encephalopathy, underlying psychiatric disorder, neuromuscular dysfunction of the bladder, benign prostatic hypertrophy. PAST SURGICAL HISTORY: No significant past surgical history. SOCIAL HISTORY: The patient is a group home resident. Denies smoking, alcohol, or illegal drug use. FAMILY HISTORY: Significant for diabetes. ALLERGIES: NKDA CURRENT MEDICATIONS: 1. Tylenol. 2. Artificial Tears. 3. Lipitor. 4. Vitamin B12. 5. Hydroxyzine. 6. Losartan. 7. Metformin. 8. MiraLAX. 9. Olanzapine. 10. Oxybutynin. 11. Zyprexa. 12. Humalog insulin sliding scale. 13. Senna tablets daily. 14. Trazodone 150 mg at bedtime. ALLERGIES: PENICILLIN. PHYSICAL EXAMINATION: GENERAL: Alert and awake male, in no acute distress. VITAL SIGNS: Blood pressure 140/84, pulse 90, respiratory rate 20. CVS: Regular rate and rhythm. CHEST: Clear. ABDOMEN: Soft. NECK: Supple. NEUROLOGIC: Mental status; the patient is alert, awake, and knows his name and place. Strength; left upper extremity 3+/5, left lower extremity 3/5, right upper and lower extremity 5/5. Sensory intact. Cerebellar, slow on the left secondary to weakness. Cranial nerves 2 through 12 intact except 10, mild dysarthria. Gait deferred due to the patient's safety reason. DATA REVIEWED: CT scan reviewed, which was negative for acute intracranial pathology. CT of the head and neck did not reveal hemodynamically significant stenosis. EKG showed normal sinus rhythm. ASSESSMENT AND PLAN: Mr. Blake Rendon is a 69-year-old male with history of diabetes, hypertension, prior stroke, presented with left hemiparesis and dysarthria and is status post tPA. The patient's neurological deficits significantly improved since tPA administration. N.p.o. until cleared by speech. Repeat head CT 24 hours post tPA to rule out bleed. If negative, then start aspirin for secondary stroke prevention.Patient was not on aspirin per [place] medication list. Continue statin for secondary stroke prevention. MRI of the brain to rule out acute intracranial process. 2D Echo to assess left ventricular ejection fraction. Telemetry to rule out arrhythmias. Neuro checks every 4 hours. Continue home medications. Permissive control of blood pressure at this time. Strict control of blood glucose. PT/OT/Speech. Continue medical management per primary team. DVT prophylaxis. We will continue to follow. Thank you for the consult. Job ID: [id number] MTDD
[2020-01-14] MEDS: Sodium Chloride 0.9% 1,000 ML IV SCH (19:25)
[2020-01-14] MEDS: metFORMIN 500 MG TAB PO SCH (20:10)
[2020-01-14] MEDS: traZODone HCl 50 MG TAB PO SCH (21:14)
[2020-01-14] MEDS: Atorvastatin Calcium 40 MG TAB PO SCH (21:14)
[2020-01-14] MEDS: Oxybutynin ER 5 MG TAB PO SCH (21:14)
[2020-01-14] MEDS: Famotidine 20 MG TAB PO SCH (21:14)
[2020-01-15 01:23] VITALS: BMI 19.6
[2020-01-15 01:52] LABS: Bacteria/HPF None Seen HPF (None Seen); Bilirubin Negative (Negative); Blood, Urine Negative (Negative); Clarity Clear (Clear); Glucose, Urine (Dipstick) Normal (Negative); Ketone, Urine Negative (Negative); Leukocyte 500 Leu/uL (Negative); Nitrite Negative (Negative); Protein, Urine (Dipstick) Negative (Neg-Trace); RBC/HPF 0-3 HPF (0-3); Specific Gravity, Urine 1.015 (1.002-1.036); Squamous Epithelial None Seen HPF (0-3); Urobilinogen Normal mg/dL (Less than 2); WBC/HPF 21-50 HPF (0-3)
[2020-01-15 03:58] LABS: #Basophils 0.1 thou/uL (0.0-0.2); #Eosinphils 0.2 thou/uL (0.0-0.7); #Lymphocytes 1.8 thou/uL (1.20-3.40); #Monocytes 0.5 thou/uL (0.11-0.59); #Neutrophils 2.6 thou/uL (1.40-6.50); %Basophils 1.3 % (0.0-1.0); %Lymphocytes 33.6 % (21.0-51.0); %Monocytes 10.4 % (0.0-10.0); %Neutrophils 50.7 % (42.0-75.0); Hemoglobin 11.9 g/dL (14.0-18.0); Mean Corpuscular HGB CONC 33.1 g/dL (32.0-36.0); Mean Corpuscular Hemoglobin 31.7 pg (27.0-31.0); Mean Corpuscular Volume 95.9 fL (78.0-98.0); Mean Platelet Volume 7.5 fL (7.4-10.4); Platelet Count 237 thou/uL (130-400); RBC Distribution Width 11.5 % (11.5-14.5); Red Blood Cell (RBC) Count 3.74 mill/uL (4.70-6.10); White Blood Cell (WBC) Count 5.2 thou/uL (4.8-10.8)
[2020-01-15 04:20] LABS: Anion Gap 13 mmol/L (10-20); BUN (Urea Nitrogen) 9 mg/dL (8.4-25.7); Calc. Creatinine Clearance 80 mL/min (70-130); Calcium 8.2 mg/dL (7.8-10.44); Carbon Dioxide 23 mmol/L (23-31); Cardiac Risk 2.4 (Less than 4.5); Chloride 109 mmol/L (98-107); Cholesterol 96 mg/dl (< 200 Desired); Estimated GFR-MDRD Greater than 90; Glucose 86 mg/dL (80-115); HDL Cholesterol 40 mg/dL (>60 Neg Risk); LDL Cholesterol, Calculated 41 mg/dL; Potassium 3.9 mmol/L (3.5-5.1); Sodium 141 mmol/L (136-145); Triglycerides 74 mg/dL (Less than 150)
[2020-01-15] MEDS: [UNRECOGNIZED DRUG - REMARK] FS SCH ×2 (04:21→17:21)
[2020-01-15] MEDS ORDERED: niCARdipine 25 MG in Sodium Chloride 0.9% 250 ML 240 ML IVPB SCH (06:15)
[2020-01-15] MEDS: Cyanocobalamin (Vitamin B-12) 1,000 MCG TAB PO SCH (08:38)
[2020-01-15] MEDS: metFORMIN 500 MG TAB PO SCH ×2 (08:38→17:07)
[2020-01-15] MEDS: Polyethylene Glycol 3350 17 GM Packet PO SCH (08:38)
[2020-01-15] MEDS: Famotidine 20 MG TAB PO SCH ×2 (08:38→20:39)
[2020-01-15] MEDS: FLUoxetine HCl 10 MG CAP PO SCH (08:38)
[2020-01-15] MEDS: Losartan 25 MG TAB PO SCH (08:38)
[2020-01-15] MEDS: Oxybutynin ER 5 MG TAB PO SCH ×2 (08:45→20:53)
[2020-01-15] MEDS: OLANZapine 5 MG TAB PO SCH (08:45)
[2020-01-15] MEDS ORDERED: FLU VACC QS2020-21(65YR UP)/PF 240 MCG/0.7 ML SYRINGE IM ONE (09:00)
[2020-01-15] MEDS: Fluticasone Propionate Nasal Spray 16 gm Bottle NASAL SCH (09:51)
[2020-01-15] MEDS ORDERED: Artificial Tear Sol 15 ML BOT EA EYE PRN (10:38)
--- NOTE | 2020-01-15 13:04 | MRI ---
MRI BRAIN WITH AND WITHOUT CONTRAST: DATE: 01/15/2020 HISTORY: 69-year-old male with CVA, status post TPA. Evaluate for hemorrhagic complication. TECHNIQUE: Multiplanar, multisequence MRI of the brain obtained pre and post IV injection of gadolinium based co ntrast agent. FINDINGS: The ventricles are normal in size and configuration. There is no midline shift or any other evidence of mass effect. There is no extra-axial fluid collection. There is no intra-axial signal abnormality, abnormal enhancement, mass, recent hemorrhage, or restricted diffusion. The entire right mastoid antrum, and a portion of or the entire right middle ear cavity, is filled with material that is hyperintense relative to brain parenchyma on T2 WI and slightly hyperintense on FLAIR. The re cent CT demonstrates paucity of pneumatized bilateral mastoid air cells, especially on the right. IMPRESSION: 1. Normal brain 2. Opacification of right middle ear cavity and right mastoid antrum.
[2020-01-15] MEDS: Sodium Chloride 0.9% 1,000 ML IV SCH ×2 (14:06→23:55)
--- NOTE | 2020-01-15 15:51 | CT ---
Exam: Head CT without contrast HISTORY: 24 follow-up. Status post TPA. COMPARISON: 01/14/2020 FINDINGS: Hemorrhage: No intraparenchymal hemorrhage or extra-axial hematoma. Brain parenchyma: Cortical [place]-white matter differentiation is preserved. No mass effect or midline shift. Basilar cisterns are patent. Ventricular system: Ventricles and sulci are patent and symmetric. Calvarium: Intact. Sinuses and mastoid air cells: Adequate aeration of the paranasal sinuses. Persistent opacification t he right middle ear. Decreased pneumatization of bilateral mastoid air cells. IMPRESSION: No acute intracranial process.
--- NOTE | 2020-01-15 16:54 | PDOC.HOSPP ---
- Subjective Encounter Date: 01/15/20 - Objective Vital Signs & Weight: Vital Signs (12 hours) Temp Pulse Pulse BP Pulse Ox Pulse Ox Pulse Ox 01/15/20 15:05 64 61 124/65 100 96 01/15/20 12:00 97.4 F L 01/15/20 08:11 98 01/15/20 08:00 98.1 F 01/15/20 05:00 98.5 F Weight Weight 125 lb 10.616 oz Most Recent Monitor Data Heart Rate from ECG 63 NIBP 117/68 NIBP BP-Mean 84 Respiration from ECG 15 SpO2 100 I&O: 01/14/20 01/15/20 01/16/20 06:59 06:59 06:59 Intake Total 672 Output Total 430 1015 Balance 242 -1015 Result Diagrams: 01/15/20 03:30 01/15/20 03:30 Additional Labs: Accuchecks 01/15/20 01/15/20 01/15/20 16:35 11:18 03:15 POC Glucose 94 98 81 01/14/20 01/14/20 22:32 19:29 POC Glucose 109 H 66 L Hospitalist ROS - Medication Medications: Active Medications Generic Name Dose Route Start Last Admin Trade Name Freq PRN Reason Stop Dose Admin Atorvastatin Calcium 40 mg 01/14/20 21:00 01/14/20 21:14 Atorvastatin Calcium 40 Mg Tab PO 40 mg HS IRVING Administration Cyanocobalamin 1,000 mcg 01/15/20 09:00 01/15/20 08:38 Cyanocobalamin (Vitamin B-12) 1,000 Mcg Tab PO 1,000 mcg DAILY IRVING Administration Famotidine 20 mg 01/14/20 21:00 01/15/20 08:38 Famotidine 20 Mg Tab PO 20 mg BID IRVING Administration Fluoxetine HCl 10 mg 01/15/20 09:00 01/15/20 08:38 Fluoxetine Hcl 10 Mg Cap PO 10 mg DAILY IRVING Administration Fluticasone Propionate 0 gm 01/15/20 09:00 01/15/20 09:51 Fluticasone Propionate Nasal [place] 16 Gm Bottle NASAL 1 spr DAILY IRVING Administration Sodium Chloride 1,000 mls @ 60 mls/hr 01/14/20 13:52 01/15/20 14:06 Normal Saline 0.9% IV 1,000 mls .[id number] IRVING Administration Losartan Potassium 25 mg 12/01/20 09:00 01/15/20 08:38 Losartan 25 Mg Tab PO 25 mg DAILY IRVING Administration Metformin HCl 500 mg 01/14/20 17:00 01/15/20 08:38 Metformin 500 Mg Tab PO 500 mg BID-WM IRVING Administration Olanzapine 5 mg 01/15/20 09:00 01/15/20 08:45 Olanzapine 5 Mg Tab PO 5 mg DAILY IRVING Administration Oxybutynin Chloride 5 mg 01/14/20 21:00 01/15/20 08:45 Oxybutynin Er 5 Mg Tab PO 5 mg BID IRVING Administration Polyethylene Glycol 17 gm 01/15/20 09:00 01/15/20 08:38 Polyethylene Glycol 3350 17 Gm Packet PO 17 gm DAILY IRVING Administration Trazodone HCl 100 mg 01/14/20 21:00 01/14/20 21:14 Trazodone Hcl 50 Mg Tab PO 100 mg HS IVRING Administration - Exam General Appearance: awake alert Neck: supple, no JVD Heart: RRR Respiratory: normal chest expansion, no tachypnea Gastrointestinal: soft Extremities: no cyanosis, no clubbing Hosp A/P (1) CVA (cerebral vascular accident) Code(s): I63.9 - CEREBRAL INFARCTION, UNSPECIFIED Status: Acute (2) BPH (benign prostatic hyperplasia) Code(s): N40.0 - BENIGN PROSTATIC HYPERPLASIA WITHOUT LOWER URINRY TRACT SYMP Status: Chronic (3) DM type 2 (diabetes mellitus, type 2) Status: Chronic Qualifiers: (4) HTN (hypertension) Code(s): I10 - ESSENTIAL (PRIMARY) HYPERTENSION Status: Chronic Qualifiers: - Plan The patient still having some left-sided weakness. His NIH stroke scale improved since yesterday. MRI of the brain and repeat CT scan of the head did not show any acute abnormalities. The patient is status post TPA. Clinically stable to transfer out of the ICU. Blood pressure is within target range for post TPA. Continue aspirin and atorvastatin.
--- NOTE | 2020-01-15 17:09 | PDOC.NEUPN ---
- Subjective Encounter Date: 01/15/20 Subjective: Mr. Rendon feels much better today and neurological deficits improved. - Objective Vital Signs & Weight: Vital Signs (12 hours) Temp Pulse Pulse BP Pulse Ox Pulse Ox Pulse Ox 01/15/20 15:05 64 61 124/65 100 96 01/15/20 12:00 97.4 F L 01/15/20 08:11 98 01/15/20 08:00 98.1 F Weight Weight 125 lb 10.616 oz Most Recent Monitor Data Heart Rate from ECG 63 NIBP 117/68 NIBP BP-Mean 84 Respiration from ECG 15 SpO2 100 I&O: 01/14/20 01/15/20 01/16/20 06:59 06:59 06:59 Intake Total 672 Output Total 430 1015 Balance 242 -1015 Result Diagrams: 01/15/20 03:30 01/15/20 03:30 Additional Labs: Accuchecks 01/15/20 01/15/20 01/15/20 16:35 11:18 03:15 POC Glucose 94 98 81 01/14/20 01/14/20 22:32 19:29 POC Glucose 109 H 66 L Radiology Reviewed by me: Yes EKG Reviewed by me: Yes ROS - Review of Systems Constitutional: denies: fever, chills, sweats, weakness, malaise, other Eyes: denies: pain, vision change, conjunctivae inflammation, eyelid inflammation, redness, other ENT: denies: ear pain, ear discharge, nose pain, nose discharge, nose bety estion, mouth pain, mouth swelling, throat pain, throat swelling, other Respiratory: denies: cough, dry, shortness of breath, hemoptysis, SOB with excertion, pleuritic pain, sputum, wheezing, other Gastrointestinal: denies: nausea, vomiting, abdominal pain, diarrhea, constipation, melena, hematochezia, other Neurological: reports: change in speech All Systems: All other systems reviewed; all pertinent +/- noted in HPI/Subj - Medication Medications: Active Medications Generic Name Dose Route Start Last Admin Trade Name Freq PRN Reason Stop Dose Admin Atorvastatin Calcium 40 mg 01/14/20 21:00 01/14/20 21:14 Atorvastatin Calcium 40 Mg Tab PO 40 mg HS IRVING Administration Cyanocobalamin 1,000 mcg 01/15/20 09:00 01/15/20 08:38 Cyanocobalamin (Vitamin B-12) 1,000 Mcg Tab PO 1,000 mcg DAILY IRVING Administration Famotidine 20 mg 01/14/20 21:00 01/15/20 08:38 Famotidine 20 Mg Tab PO 20 mg BID IRVING Administration Fluoxetine HCl 10 mg 01/15/20 09:00 01/15/20 08:38 Fluoxetine Hcl 10 Mg Cap PO 10 mg DAILY IRVING Administration Fluticasone Propionate 0 gm 01/15/20 09:00 01/15/20 09:51 Fluticasone Propionate Nasal [place] 16 Gm Bottle NASAL 1 spr DAILY IRVING Administration Sodium Chloride 1,000 mls @ 60 mls/hr 01/14/20 13:52 01/15/20 14:06 Normal Saline 0.9% IV 1,000 mls .[id number] IRVING Administration Losartan Potassium 25 mg 01/15/20 09:00 01/15/20 08:38 Losartan 25 Mg Tab PO 25 mg DAILY IRVING Administration Metformin HCl 500 mg 01/14/20 17:00 01/15/20 08:38 Metformin 500 Mg Tab PO 500 mg BID-WM IRVING Administration Olanzapine 5 mg 01/15/20 09:00 01/15/20 08:45 Olanzapine 5 Mg Tab PO 5 mg DAILY IRVING Administration Oxybutynin Chloride 5 mg 01/14/20 21:00 01/15/20 08:45 Oxybutynin Er 5 Mg Tab PO 5 mg BID IRVING Administration Polyethylene Glycol 17 gm 01/15/20 09:00 01/15/20 08:38 Polyethylene Glycol 3350 17 Gm Packet PO 17 gm DAILY IRVING Administration Trazodone HCl 100 mg 01/14/20 21:00 01/14/20 21:14 Trazodone Hcl 50 Mg Tab PO 100 mg HS IRVING Administration - Exam General Appearance: awake alert Eye: PERRL ENT: normocephalic atraumatic Neck: supple Respiratory: CTAB Cardiovascular: RRR Gastrointestinal: soft Extremities: no cyanosis Skin: normal turgor Neurological: no new deficit Musculoskeletal: normal tone, no muscle wasting PSYCH: normal affect, normal behavior Results - Labs Result Diagrams: 01/15/20 03:30 01/15/20 03:30 Lab results: WBC 5.2 thou/uL (4.8-10.8) 01/15/20 03:30 Hgb 11.9 g/dL (14.0-18.0) L 01/15/20 03:30 Hct 35.8 % (42.0-52.0) L 01/15/20 03:30 MCV 95.9 fL (78.0-98.0) 01/15/20 03:30 Plt Count 237 thou/uL (130-400) 01/15/20 03:30 Neutrophils % 50.7 % (42.0-75.0) 01/15/20 03:30 Sodium 141 mmol/L (136-145) 01/15/20 03:30 Potassium 3.9 mmol/L (3.5-5.1) 01/15/20 03:30 Chloride 109 mmol/L (98-107) H 01/15/20 03:30 Carbon Dioxide 23 mmol/L (23-31) 01/15/20 03:30 BUN 9 mg/dL (8.4-25.7) 01/15/20 03:30 Creatinine 0.71 mg/dL (0.7-1.3) 01/15/20 03:30 Glucose 86 mg/dL (80-115) 01/15/20 03:30 Calcium 8.2 mg/dL (7.8-10.44) 01/15/20 03:30 Total Bilirubin 0.4 mg/dL (0.2-1.2) 01/14/20 11:30 AST 23 U/L (5-34) 01/14/20 11:30 ALT 18 U/L (8-55) 01/14/20 11:30 Alkaline Phosphatase 97 U/L (40-110) 01/14/20 11:30 Creatine Kinase 79 U/L (30-200) 01/14/20 11:30 Troponin I 0.014 ng/mL (< 0.028) 01/14/20 11:30 Serum Total Protein 7.3 g/dL (5.8-8.1) 01/14/20 11:30 Albumin 4.2 g/dL (3.4-4.8) 01/14/20 11:30 Urine Ketones Negative mg/dL (Negative) 01/15/20 00:05 Urine Blood Negative (Negative) 01/15/20 00:05 Urine Nitrite Negative (Negative) 01/15/20 00:05 Ur Leukocyte Esterase 500 Gaby/uL (Negative) A 01/15/20 00:05 Urine RBC 0-3 HPF (0-3) 01/15/20 00:05 Urine WBC 21-50 HPF (0-3) A 01/15/20 00:05 Ur Squamous Epith Cells None Seen HPF (0-3) 01/15/20 00:05 Urine Bacteria None Seen HPF (None Seen) 01/15/20 00:05 - EKG Interpretation EKG: EKG shows normal sinus rhythm - Radiology Interpretation MRI - head Additional Comment: MRI of the brain reviewed which was negative for acute intracranial pathology. PN A/P (1) CVA (cerebral vascular accident) Code(s): I63.9 - CEREBRAL INFARCTION, UNSPECIFIED Status: Acute (2) Diabetes Code(s): E11.9 - TYPE 2 DIABETES MELLITUS WITHOUT COMPLICATIONS Status: Acute Qualifiers: Diabetes mellitus type: type 2 Diabetes mellitus complication status: without complication (3) Dysphagia Code(s): R13.10 - DYSPHAGIA, UNSPECIFIED Status: Chronic (4) GERD (gastroesophageal reflux disease) Code(s): K21.9 - GASTRO-ESOPHAGEAL REFLUX DISEASE WITHOUT ESOPHAGITIS Status: Chronic Qualifiers: Esophagitis presence: without esophagitis Qualified Code(s): K21.9 - Gastro-esophageal reflux disease without esophagitis (5) HTN (hypertension) Code(s): I10 - ESSENTIAL (PRIMARY) HYPERTENSION Status: Chronic Qualifiers: (6) Hemiparesis and other late effects of cerebrovascular accident Code(s): I69.359 - HEMIPLGA FOLLOWING CEREBRAL INFARCTION AFFECTING UNSP SIDE; I69.398 - OTHER SEQUELAE OF CEREBRAL INFARCTION Status: Chronic - Plan Daily Plan: PT/OT, speech therapy, DVT proph w/SCDs Mr. Slater is a 69-year-old male who presented with worsening strokelike symptoms and is s/p TPA. He has history of prior CVA with a residual left hemiparesis and baseline speech deficit he has been doing extremely well and his neurological deficits are almost resolved. Most likely TIA. MRI of the brain reviewed which did not reveal any acute intracranial pathology. Continue neurochecks every 4 hours. Continue home medications. Continue PT/OT/speech. Telemetry CTA of the head and neck did not reveal hemodynamically significant stenosis. 2D echocardiogram reviewed. No thrombus or PFO. Head CT 24 hours post TPA is negative for bleed Start aspirin and high intensity statin for secondary stroke prevention. Strict control of blood pressure and blood glucose. Continue medical management per primary team. Transfer patient to the stroke floor Plan discussed in detail with the patient and the nursing staff
[2020-01-15] MEDS: traZODone HCl 50 MG TAB PO SCH (20:39)
[2020-01-15] MEDS: Enoxaparin Sodium 40 MG/0.4 ML SYRINGE SC SCH (20:40)
[2020-01-15] MEDS: Atorvastatin Calcium 40 MG TAB PO SCH (20:40)
[2020-01-15] MEDS ORDERED: Aspirin 325 mg Enteric Coated Tablet PO SCH (21:00)
[2020-01-16 07:53] VITALS: TEMP 97.4
[2020-01-16] MEDS: Fluticasone Propionate Nasal Spray 16 gm Bottle NASAL SCH (09:19)
[2020-01-16] MEDS: Polyethylene Glycol 3350 17 GM Packet PO SCH (09:19)
[2020-01-16] MEDS: metFORMIN 500 MG TAB PO SCH ×2 (09:20→16:53)
[2020-01-16] MEDS: Cyanocobalamin (Vitamin B-12) 1,000 MCG TAB PO SCH (09:20)
[2020-01-16] MEDS: Losartan 25 MG TAB PO SCH (09:20)
[2020-01-16] MEDS: FLUoxetine HCl 10 MG CAP PO SCH (09:20)
[2020-01-16] MEDS: OLANZapine 5 MG TAB PO SCH (09:20)
[2020-01-16] MEDS: Famotidine 20 MG TAB PO SCH (09:20)
[2020-01-16] MEDS: Oxybutynin ER 5 MG TAB PO SCH (09:20)
[2020-01-16 11:57] VITALS: BP 141/68
--- NOTE | 2020-01-16 13:21 | PDOC.NEUPN ---
- Subjective Encounter Date: 01/16/20 Subjective: Mr. DUKES has no acute events in the last 24 hours. He is back to the baseline - Objective Vital Signs & Weight: Vital Signs (12 hours) Temp Pulse Resp BP Pulse Ox 01/16/20 11:57 97.4 F L 64 16 141/68 H 99 01/16/20 08:00 100 01/16/20 07:53 97.4 F L 79 16 142/74 H 100 01/16/20 04:00 97.3 F L 57 L 16 145/79 H 100 01/16/20 02:51 99 Weight Weight 125 lb 10.616 oz Most Recent Monitor Data Heart Rate from ECG 67 NIBP 125/53 NIBP BP-Mean 77 Respiration from ECG 24 SpO2 74 I&O: 01/15/20 01/16/20 01/17/20 06:59 06:59 06:59 Intake Total 672 848 300 Output Total 430 1595 1700 Balance 696 -195 -1793 Result Diagrams: 01/15/20 03:30 01/15/20 03:30 Additional Labs: Accuchecks 01/15/20 01/15/20 01/15/20 21:29 16:35 11:18 POC Glucose 129 H 94 98 Radiology Reviewed by me: Yes EKG Reviewed by me: Yes ROS - Review of Systems Constitutional: denies: fever, chills, sweats, weakness, malaise, other Eyes: denies: pain, vision change, conjunctivae inflammation, eyelid inflammation, redness, other ENT: denies: ear pain, ear discharge, nose pain, nose discharge, nose congestion, mouth pain, mouth swelling, throat pain, throat swelling, other Genitourinary: denies: dysuria, frequency, incontinence, hematuria, retention, other Musculoskeletal: denies: neck pain, shoulder pain, arm pain, back pain, hand pain, leg pain, foot pain, other Neurological: denies: weakness, numbness, incoordination, change in speech, confusion, seizures, other - Medication Medications: Active Medications Generic Name Dose Route Start Last Admin Trade Name Freq PRN Reason Stop Dose Admin Artificial Tears 0 drop 01/15/20 10:38 01/16/20 09:19 Artificial Tear [place] 15 Ml Bot EA EYE 1 spr PRN PRN Administration Dry Eyes Aspirin 325 mg 01/15/20 21:00 01/15/20 20:40 Aspirin 325 Mg Enteric Coated Tablet PO 325 mg 2100 IRVING Administration Atorvastatin Calcium 40 mg 01/14/20 21:00 01/15/20 20:40 Atorvastatin Calcium 40 Mg Tab PO 40 mg HS IRVING Administration Cyanocobalamin 1,000 mcg 01/15/20 09:00 01/16/20 09:20 Cyanocobalamin (Vitamin B-12) 1,000 Mcg Tab PO 1,000 mcg DAILY IRVING Administration Enoxaparin Sodium 40 mg 01/15/20 21:00 01/15/20 20:40 Enoxaparin Sodium 40 Mg/0.4 Ml Syringe SC 40 mg 2100 IRVING Administration Famotidine 20 mg 01/14/20 21:00 01/16/20 09:20 Famotidine 20 Mg Tab PO 20 mg BID IRVING Administration Fluoxetine HCl 10 mg 01/15/20 09:00 01/16/20 09:20 Fluoxetine Hcl 10 Mg Cap PO 10 mg DAILY IRVING Administration Fluticasone Propionate 0 gm 01/15/20 09:00 01/16/20 09:19 Fluticasone Propionate Nasal [place] 16 Gm Bottle NASAL 1 spr DAILY IRVING Administration Sodium Chloride 1,000 mls @ 60 mls/hr 01/14/20 13:52 01/15/20 23:55 Normal Saline 0.9% IV Not Given .[id number] IRVING Losartan Potassium 25 mg 01/15/20 09:00 01/16/20 09:20 Losartan 25 Mg Tab PO 25 mg DAILY IRVING Administration Metformin HCl 500 mg 01/14/20 17:00 01/16/20 09:20 Metformin 500 Mg Tab PO 500 mg BID-WM IRVING Administration Olanzapine 5 mg 01/15/20 09:00 01/16/20 09:20 Olanzapine 5 Mg Tab PO 5 mg DAILY IRVING Administration Oxybutynin Chloride 5 mg 01/14/20 21:00 01/16/20 09:20 Oxybutynin Er 5 Mg Tab PO 5 mg BID IRVING Administration Polyethylene Glycol 17 gm 01/15/20 09:00 01/16/20 09:19 Polyethylene Glycol 3350 17 Gm Packet PO 17 gm DAILY IRVING Administration Trazodone HCl 100 mg 01/14/20 21:00 01/15/20 20:39 Trazodone Hcl 50 Mg Tab PO 100 mg HS IRVING Administration - Exam General Appearance: awake alert Eye: PERRL ENT: normocephalic atraumatic Neck: supple Respiratory: CTAB Cardiovascular: RRR Gastrointestinal: soft Extremities: no cyanosis Neurological: CN's grossly intact, no new deficit Musculoskeletal: normal tone, no muscle wasting PSYCH: normal affect, normal behavior Results - Labs Result Diagrams: 01/15/20 03:30 01/15/20 03:30 Lab results: WBC 5.2 thou/uL (4.8-10.8) 01/15/20 03:30 Hgb 11.9 g/dL (14.0-18.0) L 01/15/20 03:30 Hct 35.8 % (42.0-52.0) L 01/15/20 03:30 MCV 95.9 fL (78.0-98.0) 01/15/20 03:30 Plt Count 237 thou/uL (130-400) 01/15/20 03:30 Neutrophils % 50.7 % (42.0-75.0) 01/15/20 03:30 Sodium 141 mmol/L (136-145) 01/15/20 03:30 Potassium 3.9 mmol/L (3.5-5.1) 01/15/20 03:30 Chloride 109 mmol/L (98-107) H 01/15/20 03:30 Carbon Dioxide 23 mmol/L (23-31) 01/15/20 03:30 BUN 9 mg/dL (8.4-25.7) 01/15/20 03:30 Creatinine 0.71 mg/dL (0.7-1.3) 01/15/20 03:30 Glucose 86 mg/dL (80-115) 01/15/20 03:30 Calcium 8.2 mg/dL (7.8-10.44) 01/15/20 03:30 Total Bilirubin 0.4 mg/dL (0.2-1.2) 01/14/20 11:30 AST 23 U/L (5-34) 01/14/20 11:30 ALT 18 U/L (8-55) 01/14/20 11:30 Alkaline Phosphatase 97 U/L (40-110) 01/14/20 11:30 Creatine Kinase 79 U/L (30-200) 01/14/20 11:30 Troponin I 0.014 ng/mL (< 0.028) 01/14/20 11:30 Serum Total Protein 7.3 g/dL (5.8-8.1) 01/14/20 11:30 Albumin 4.2 g/dL (3.4-4.8) 01/14/20 11:30 Urine Ketones Negative mg/dL (Negative) 01/15/20 00:05 Urine Blood Negative (Negative) 01/15/20 00:05 Urine Nitrite Negative (Negative) 01/15/20 00:05 Ur Leukocyte Esterase 500 Gaby/uL (Negative) A 01/15/20 00:05 Urine RBC 0-3 HPF (0-3) 01/15/20 00:05 Urine WBC 21-50 HPF (0-3) A 01/15/20 00:05 Ur Squamous Epith Cells None Seen HPF (0-3) 01/15/20 00:05 Urine Bacteria None Seen HPF (None Seen) 01/15/20 00:05 - Radiology Interpretation MRI - head Additional Comment: RI of the brain reviewed which was negative for acute intracranial pathology PN A/P (1) CVA (cerebral vascular accident) Code(s): I63.9 - CEREBRAL INFARCTION, UNSPECIFIED Status: Acute (2) Diabetes Code(s): E11.9 - TYPE 2 DIABETES MELLITUS WITHOUT COMPLICATIONS Status: Acute Qualifiers: Diabetes mellitus type: type 2 Diabetes mellitus complication status: without complication (3) Dysphagia Code(s): R13.10 - DYSPHAGIA, UNSPECIFIED Status: Chronic (4) GERD (gastroesophageal reflux disease) Code(s): K21.9 - GASTRO-ESOPHAGEAL REFLUX DISEASE WITHOUT ESOPHAGITIS Status: Chronic Qualifiers: Esophagitis presence: without esophagitis Qualified Code(s): K21.9 - Gastro-esophageal reflux disease without esophagitis (5) HTN (hypertension) Code(s): I10 - ESSENTIAL (PRIMARY) HYPERTENSION Status: Chronic Qualifiers: (6) Hemiparesis and other late effects of cerebrovascular accident Code(s): I69.359 - HEMIPLGA FOLLOWING CEREBRAL INFARCTION AFFECTING UNSP SIDE; I69.398 - OTHER SEQUELAE OF CEREBRAL INFARCTION Status: Chronic - Plan Daily Plan: PT/OT, speech therapy, out of bed/ambulate Mr. Dukes is a 69-year-old male who presented with left hemiparesis and slurred speech. Neurological deficits resolved so most likely TIA. MRI of the brain negative for acute infarction. MRI of the brain reviewed which did not reveal any acute intracranial pathology. Continue neurochecks every 4 hours. Continue home medications. Continue PT/OT/speech. Telemetry CTA of the head and neck did not reveal hemodynamically significant stenosis. 2D echocardiogram reviewed. No thrombus or PFO. Head CT 24 hours post TPA is negative for bleed Continue aspirin and high intensity statin for secondary stroke prevention. Strict control of blood pressure and blood glucose. Continue medical management per primary team. Patient stable from neurology perspective. Case management on board regarding discharge planning Plan discussed in detail with the patient and the nursing staff
--- NOTE | 2020-01-16 13:30 | PDOC.DS.DS ---
Provider - Provider Date of Admission: 01/14/20 12:09 Date of Discharge: 01/16/20 Admitting Provider: Raymond Garcia MD Primary Care Physician: Honorio Lui DO Course - Hospital Course Hospital Course: The patient is a 69-year-old male with past medical history of BPH with suprapubic catheter due to neuromuscular dysfunction of the bladder, hypertension, and diabetes mellitus who was sent to the hospital from his assisted residence due to left sided weakness and facial droop in addition to altered mental status. The patient received TPA in the ER due to high NIH stroke scale and presentation within the window. He was admitted to the ICU for first 24 hours where his initial studies including CT scan of the head, CTA of the head and neck, and MRI of the brain were all unremarkable. The patient's weakness improved within 24 hours. Echocardiogram did not demonstrate any intracardiac thrombi. He was started on high intensity statin and high-dose a spirin. He is currently in a stable condition and ready for discharge. Resuscitation Status: 01/14/20 13:45 Resuscitation Status Routine Resuscitation Status: FULL: Full Resuscitation - Labs Lab Results: 01/15/20 03:30 01/15/20 03:30 Abnormal Lab Results - Last 48 hrs 01/15/20 00:05: Ur Leukocyte Esterase 500 A, Urine WBC 21-50 A 01/15/20 03:30: Chloride 109 H 01/15/20 03:30: RBC 3.74 L, Hgb 11.9 L, Hct 35.8 L, MCH 31.7 H, Monocytes % 10.4 H, Basophils % 1.3 H Microbiology - Entire Visit 01/15/20 00:05 Urine Suprapubic catheter Urine Culture - Preliminary Pseudomonas aeruginosa - Physical Exam Vitals: Vital Signs (12 hours) Temp Pulse Resp BP Pulse Ox 01/16/20 11:57 97.4 F L 64 16 141/68 H 99 01/16/20 08:00 100 01/16/20 07:53 97.4 F L 79 16 142/74 H 100 01/16/20 04:00 97.3 F L 57 L 16 145/79 H 100 01/16/20 02:51 99 Weight Weight 125 lb 10.616 oz Most Recent Monitor Data Heart Rate from ECG 67 NIBP 125/53 NIBP BP-Mean 77 Respiration from ECG 24 SpO2 74 Physical Exam: The patient was seen and examined on the day of discharge. Problem - Problem (1) TIA (transient ischemic attack) Code(s): G45.9 - TRANSIENT CEREBRAL ISCHEMIC ATTACK, UNSPECIFIED Status: Acute (2) CVA (cerebral vascular accident) Code(s): I63.9 - CEREBRAL INFARCTION, UNSPECIFIED Status: Acute Plan: Ruled out. (3) BPH (benign prostatic hyperplasia) Code(s): N40.0 - BENIGN PROSTATIC HYPERPLASIA WITHOUT LOWER URINRY TRACT SYMP Status: Chronic (4) DM type 2 (diabetes mellitus, type 2) Status: Chronic Qualifiers: (5) HTN (hypertension) Code(s): I10 - ESSENTIAL (PRIMARY) HYPERTENSION Status: Chronic Qualifiers: - Time spent with Patient (mins): 32 Plan - Discharge Medications Prescriptions: Aspirin [Ecotrin Regular Strength] 325 mg PO DAILY #30 tab Atorvastatin Calcium [Lipitor] 40 mg PO HS #30 tab Home Medications: Medication Instructions Recorded Confirmed Type Fluticasone Propionate 1 spray EA NARE DAILY 07/03/13 01/15/20 History [Fluticasone Propionate Nasal [place]] Losartan Potassium 25 mg PO DAILY 07/03/13 01/15/20 History Atorvastatin Calcium 40 mg PO HS 03/11/19 01/15/20 History Cyanocobalamin (Vitamin B-12) 2 tab PO DAILY 03/11/19 01/15/20 History [Vitamin B-12] HumaLOG [HumaLOG Vial] 1 units SC ASDIR 03/11/19 01/15/20 History Oxybutynin Chloride [Oxybutynin 5 mg PO BID 03/11/19 01/15/20 History Chloride ER] metFORMIN [Glucophage] 500 mg PO BID-WM 03/11/19 01/15/20 History traZODone HCl [Trazodone HCl] 150 mg PO HS 03/11/19 01/15/20 History Acetaminophen W/ Codeine 1 - 2 tablet PO Q6HR PRN 01/04/20 01/15/20 History [Acetaminophen/Codeine #3] Artificial Tears [Tears Naturale 1 - 2 drop EA EYE BID 01/04/20 01/15/20 History Free] FLUoxetine HCl 10 mg PO DAILY 01/04/20 01/15/20 History OLANZapine 5 mg PO DAILY 01/04/20 01/15/20 History Polyethylene Glycol 3350 [Miralax] 17 gm PO DAILY 01/04/20 01/15/20 History hydrOXYzine HCl [Hydroxyzine HCl] 50 mg PO BID 01/04/20 01/15/20 History Sennosides/Docusate Sodium 1 tab PO BID PRN tab 01/07/20 01/15/20 Rx [Senokot S] Aspirin [Ecotrin Regular Strength] 325 mg PO DAILY #30 tab 01/16/20 Rx Atorvastatin Calcium [Lipitor] 40 mg PO HS #30 tab 01/16/20 Rx Allergies: penicillin G Allergy (Severe, Verified 01/15/20 00:25) Rash Penicillins Allergy (Verified 01/15/20 00:25) - Follow up Plan Referrals: [facility] [Outside] Honorio Lui DO [Primary Care Provider] - Disposition: HOME Quality - Care Measures CORE MEASURES:: N/A
[2020-01-16] MEDS: Sodium Chloride 0.9% 1,000 ML IV SCH (14:17)
[2020-01-16] MEDS: Enoxaparin Sodium 40 MG/0.4 ML SYRINGE SC SCH (16:54)
== END 2020-01-16 17:34 | DRG 62 ==
LOC: ERS 11:13 → ERHOLD 12:09 → CCU 23:37 → 2SE 01-15 22:25
PROVIDERS: ADMIT Internal Medicine; ATTEND Internal Medicine
DX: G45.9 Transient cerebral ischemic attack, unspecified (principal); I69.354 Hemiplegia and hemiparesis following cerebral infarction affecting left non-dominant side; N40.0 Benign prostatic hyperplasia without lower urinary tract symptoms; F31.9 Bipolar disorder, unspecified; Z20.828 Contact with and (suspected) exposure to other viral communicable diseases; E11.9 Type 2 diabetes mellitus without complications; I10 Essential (primary) hypertension; R13.10 Dysphagia, unspecified; E78.5 Hyperlipidemia, unspecified; Z79.1 Long term (current) use of non-steroidal anti-inflammatories (NSAID); Z88.0 Allergy status to penicillin; I69.398 Other sequelae of cerebral infarction
CPT/HCPCS: 36416; 70450; 70496; 70498; 70551; 80048; 80053; 80061; 81001; 82550; 84484; 85025; 85610; 85730; 87077; 87086; 87186; 93005; 93306; 96365; 96376; J1650; J2997; Q9967; U0002

== ENCOUNTER 2020-04-23 14:41 | Outpatient (CLI) | payer MEDICARE, MEDICAID | END 2020-04-23 14:42 | disposition home or self-care (01) | LOC: BICRAD 14:41 | PROVIDERS: ATTEND Family Medicine | DX: R10.84 Generalized abdominal pain (principal) | CPT/HCPCS: 74018 ==

== ENCOUNTER 2020-12-04 06:27 | Day surgery (SDC) | payer MEDICARE ==
[2020-12-03 11:01] VITALS: BMI 27.5
[2020-12-04] MEDS ORDERED: PROPOFOL 200 MG/20 ML VIAL ONE (08:07)
== END 2020-12-04 09:10 | disposition home or self-care (01) ==
LOC: SDC 06:27
PROVIDERS: ATTEND Internal Medicine
PROC: 0DBL8ZX Excision of Transverse Colon, Via Natural or Artificial Opening Endoscopic, Diagnostic (ICD-10-PCS; principal; 2020-12-04)
DX: D12.3 Benign neoplasm of transverse colon (principal); K63.89 Other specified diseases of intestine; G89.29 Other chronic pain; R10.84 Generalized abdominal pain; K59.00 Constipation, unspecified; Z79.82 Long term (current) use of aspirin; Z79.84 Long term (current) use of oral hypoglycemic drugs; Z79.899 Other long term (current) drug therapy; Z88.0 Allergy status to penicillin
CPT/HCPCS: 88305; J2704

== ENCOUNTER 2021-01-20 18:44 | Emergency (ER) | payer MEDICARE, MEDICAID ==
[2021-01-20 19:43] LABS: #Eosinphils 0.1 thou/uL (0.0-0.7); #Lymphocytes 1.2 thou/uL (1.20-3.40); #Neutrophils 10.1 thou/uL (1.40-6.50); %Basophils 0.2 % (0.0-1.0); %Eosinophils 0.5 % (0.0-10.0); %Lymphocytes 9.7 % (21.0-51.0); %Monocytes 8.4 % (0.0-10.0); %Neutrophils 81.2 % (42.0-75.0); Mean Corpuscular HGB CONC 33.6 g/dL (32.0-36.0); Mean Corpuscular Hemoglobin 32.3 pg (27.0-31.0); Mean Platelet Volume 6.2 fL (7.4-10.4); Platelet Count 325 thou/uL (130-400); RBC Distribution Width 12.3 % (11.5-14.5); Red Blood Cell (RBC) Count 4.01 mill/uL (4.70-6.10); White Blood Cell (WBC) Count 12.4 thou/uL (4.8-10.8)
[2021-01-20 20:04] LABS: ALT (SGPT) 16 U/L (8-55); AST (SGOT) 16 U/L (5-34); Albumin 3.8 g/dL (3.4-4.8); Alkaline Phosphatase 103 U/L (40-110); Anion Gap 14 mmol/L (10-20); BUN (Urea Nitrogen) 13 mg/dL (8.4-25.7); Bilirubin, Total 0.6 mg/dL (0.2-1.2); Calc. Creatinine Clearance 0 mL/min (70-130); Calcium 8.4 mg/dL (7.8-10.44); Carbon Dioxide 22 mmol/L (23-31); Chloride 100 mmol/L (98-107); Globulin 2.6 g/dL (2.4-3.5); Glucose 217 mg/dL (80-115); Protein, Total 6.4 g/dL (5.8-8.1); Sodium 132 mmol/L (136-145)
[2021-01-20 21:45] LABS: Bacteria/HPF None Seen HPF (None Seen); Bilirubin Negative (Negative); Blood, Urine Trace (Negative); Clarity Turbid (Clear); Glucose, Urine (Dipstick) 200 mg/dL (Negative); Ketone, Urine Negative (Negative); Leukocyte 25 Leu/uL (Negative); Nitrite Negative (Negative); Protein, Urine (Dipstick) Negative (Neg-Trace); Squamous Epithelial 0-3 HPF (0-3); Urobilinogen Normal mg/dL (Less than 2); WBC/HPF 0-3 HPF (0-3)
[2021-01-20 21:55] LABS: Yeast-Budding 2+ HPF (None Seen)
[2021-01-20 21:56] LABS: RBC/HPF 0-3 HPF (0-3)
== END 2021-01-20 23:55 | disposition home or self-care (01) ==
LOC: ERS 18:44
DX: S06.0X0A Concussion without loss of consciousness, initial encounter (principal); E78.5 Hyperlipidemia, unspecified; E78.00 Pure hypercholesterolemia, unspecified; E11.9 Type 2 diabetes mellitus without complications; I10 Essential (primary) hypertension; K21.9 Gastro-esophageal reflux disease without esophagitis; J45.909 Unspecified asthma, uncomplicated; W01.0XXA Fall on same level from slipping, tripping and stumbling without subsequent striking against object, initial encounter
CPT/HCPCS: 36415; 51702; 70450; 71045; 72125; 80053; 81003; 81015; 84484; 85025; 93005

== ENCOUNTER 2021-03-30 10:33 | Inpatient (IN) | payer MEDICARE, MEDICAID ==
[2021-03-30] MEDS ORDERED: cefTRIAXone\\ROCEPHIN 1 GM VIAL ONE (11:11)
[2021-03-30 11:20] LABS: #Monocytes 0.4 thou/uL (0.11-0.59); #Neutrophils 5.1 thou/uL (1.40-6.50); %Basophils 0.7 % (0.0-1.0); %Eosinophils 0.5 % (0.0-10.0); %Lymphocytes 15.1 % (21.0-51.0); %Monocytes 6.2 % (0.0-10.0); %Neutrophils 77.5 % (42.0-75.0); Hemoglobin 13.4 g/dL (14.0-18.0); Mean Corpuscular HGB CONC 33.6 g/dL (32.0-36.0); Mean Corpuscular Volume 98.2 fL (78.0-98.0); Mean Platelet Volume 6.8 fL (7.4-10.4); Platelet Count 329 thou/uL (130-400); RBC Distribution Width 12.5 % (11.5-14.5); Red Blood Cell (RBC) Count 4.06 mill/uL (4.70-6.10); White Blood Cell (WBC) Count 6.6 thou/uL (4.8-10.8)
[2021-03-30 11:35] LABS: Bacteria/HPF 4+ HPF (None Seen); Bilirubin Negative (Negative); Blood, Urine Trace (Negative); Clarity Turbid (Clear); Glucose, Urine (Dipstick) Normal (Negative); Ketone, Urine Negative (Negative); Leukocyte 500 Leu/uL (Negative); Nitrite 2+ (Negative); Protein, Urine (Dipstick) Negative (Neg-Trace); RBC/HPF 0-3 HPF (0-3); Squamous Epithelial None Seen HPF (0-3); Urobilinogen Normal mg/dL (Less than 2); WBC/HPF Greater than 50 HPF (0-3); pH, Urine 7.5 (5.0-9.0)
[2021-03-30] MEDS ORDERED: Vancomycin 1 GM/200 ML BAG ONE (12:04)
[2021-03-30] MEDS ORDERED: Fleet Enema 133 ML BOT PR PRN (12:11)
[2021-03-30] MEDS ORDERED: Milk Of Magnesia 30 ML UDCUP PO PRN (12:11)
[2021-03-30] MEDS ORDERED: Lactated Ringer's 1,000 ML IV SCH (12:30)
[2021-03-30] MEDS ORDERED: Ondansetron PF 4 MG/2 ML Vial IVP PRN (12:31)
[2021-03-30] MEDS ORDERED: Dextrose 50% Abboject 50 ML SYRINGE SLOW IVP PRN (12:34)
[2021-03-30] MEDS ORDERED: Dextrose 5% in Water 1,000 ML IV PRN (12:34)
[2021-03-30] MEDS ORDERED: HumaLOG 300 UNITS/3 ML VIAL SC PRN (12:34)
[2021-03-30 13:24] LABS: ALT (SGPT) 9 U/L (8-55); AST (SGOT) 16 U/L (5-34); Albumin 4.5 g/dL (3.4-4.8); Alkaline Phosphatase 98 U/L (40-110); Anion Gap 18 mmol/L (10-20); BUN (Urea Nitrogen) 10 mg/dL (8.4-25.7); CK (CPK) 97 U/L (30-200); Calc. Creatinine Clearance 0 mL/min (70-130); Calcium 9.4 mg/dL (7.8-10.44); Carbon Dioxide 18 mmol/L (23-31); Chloride 103 mmol/L (98-107); Globulin 3.1 g/dL (2.4-3.5); Glucose 170 mg/dL (80-115); Lipase 36 U/L (8-78); Magnesium 1.6 mg/dL (1.6-2.6); Potassium 4.3 mmol/L (3.5-5.1); Protein, Total 7.6 g/dL (5.8-8.1); Sodium 135 mmol/L (136-145)
[2021-03-30] MEDS ORDERED: Bismuth Subs 17.5 mg/mL Susp PO PRN (13:26)
[2021-03-30 14:27] LABS: Bilirubin, Total 0.4 mg/dL (0.2-1.2)
[2021-03-30 16:37] LABS: Lactic Acid 0.7 mmol/L (0.5-2.2)
[2021-03-30 20:03] VITALS: BMI 20.2
[2021-03-30 20:41] LABS: SARS-CoV-2 NAA Rapid Test Not Detected (NotDetected)
[2021-03-30] MEDS: Famotidine 20 MG TAB PO SCH (21:28)
[2021-03-30] MEDS: Atorvastatin Calcium 40 MG TAB PO SCH (21:28)
[2021-03-30] MEDS: metFORMIN 500 MG TAB PO SCH (21:35)
[2021-03-30] MEDS: hydrOXYzine 25 MG TAB PO SCH ×2 (21:35→21:43)
[2021-03-30] MEDS: Polyvinyl Alcohol 1.4%/Povidone 0.6% Opth Drops EA EYE SCH ×2 (21:35→21:36)
[2021-03-31 05:58] LABS: Anion Gap 6 mmol/L (10-20); BUN (Urea Nitrogen) 9 mg/dL (8.4-25.7); Calc. Creatinine Clearance 68 mL/min (70-130); Calcium 8.3 mg/dL (7.8-10.44); Carbon Dioxide 28 mmol/L (23-31); Chloride 110 mmol/L (98-107); Glucose 130 mg/dL (80-115); Sodium 140 mmol/L (136-145)
[2021-03-31 06:28] LABS: Eosinophils 2 % (0-10); Lymphocytes 31 % (21-51); MDiff Complete? YES; Mean Corpuscular HGB CONC 33.3 g/dL (32.0-36.0); Mean Corpuscular Hemoglobin 33.3 pg (27.0-31.0); Mean Platelet Volume 6.7 fL (7.4-10.4); Monocytes 4 % (0-10); Neutrophil 63 % (42-75); Platelet Count 267 thou/uL (130-400); Platelet Morphology Comment Appears Adequate; RBC Distribution Width 12.6 % (11.5-14.5); RBC Morphology Normal; Red Blood Cell (RBC) Count 3.31 mill/uL (4.70-6.10); White Blood Cell (WBC) Count 6.1 thou/uL (4.8-10.8)
[2021-03-31] MEDS ORDERED: Non-Formulary Item 1 EACH (Oxybutynin Chloride [Oxybutynin Chloride Er] 15 MG Tab.Er.24) PO SCH (09:00)
[2021-03-31] MEDS: Alogliptin 25 MG TAB PO SCH (10:55)
[2021-03-31] MEDS: Benztropine 1 MG TAB PO SCH (10:55)
[2021-03-31] MEDS: Aspirin 325 mg Enteric Coated Tablet PO SCH (10:55)
[2021-03-31] MEDS: metFORMIN 500 MG TAB PO SCH ×2 (10:55→17:29)
[2021-03-31] MEDS: FLUoxetine HCl 10 MG CAP PO SCH (10:56)
[2021-03-31] MEDS: hydrOXYzine 25 MG TAB PO SCH ×2 (10:56→21:28)
[2021-03-31] MEDS: Losartan 25 MG TAB PO SCH (10:56)
[2021-03-31] MEDS: Cyanocobalamin (Vitamin B-12) 1,000 MCG TAB PO SCH (10:56)
[2021-03-31] MEDS: Famotidine 20 MG TAB PO SCH ×2 (10:56→21:26)
[2021-03-31] MEDS: cefTRIAXone\\ROCEPHIN 1 GM in Sodium Chloride 0.9% 100 ML IVPB SCH (10:57)
[2021-03-31] MEDS: Polyvinyl Alcohol 1.4%/Povidone 0.6% Opth Drops EA EYE SCH ×2 (10:57→12:54)
[2021-03-31] MEDS: Fluticasone Propionate Nasal Spray 16 gm Bottle NASAL SCH (12:08)
[2021-03-31] MEDS: Artificial Tear Sol 15 ML BOT EA EYE SCH ×2 (15:05→21:27)
[2021-03-31] MEDS: Senokot S 8.6-50 MG TAB PO PRN (15:10)
[2021-03-31] MEDS: Atorvastatin Calcium 40 MG TAB PO SCH (21:26)
[2021-03-31] MEDS ORDERED: traZODone HCl 50 MG TAB PO PRN (23:35)
[2021-04-01] MEDS: cefTRIAXone\\ROCEPHIN 1 GM in Sodium Chloride 0.9% 100 ML IVPB SCH (10:35)
[2021-04-01] MEDS: Alogliptin 25 MG TAB PO SCH (10:36)
[2021-04-01] MEDS: Aspirin 325 mg Enteric Coated Tablet PO SCH (10:37)
[2021-04-01] MEDS: Artificial Tear Sol 15 ML BOT EA EYE SCH ×3 (10:37→20:19)
[2021-04-01] MEDS: Benztropine 1 MG TAB PO SCH (10:37)
[2021-04-01] MEDS: Famotidine 20 MG TAB PO SCH ×2 (10:38→20:15)
[2021-04-01] MEDS: Cyanocobalamin (Vitamin B-12) 1,000 MCG TAB PO SCH (10:38)
[2021-04-01] MEDS: FLUoxetine HCl 10 MG CAP PO SCH (10:38)
[2021-04-01] MEDS: Fluticasone Propionate Nasal Spray 16 gm Bottle NASAL SCH (10:39)
[2021-04-01] MEDS: hydrOXYzine 25 MG TAB PO SCH ×2 (10:39→20:15)
[2021-04-01] MEDS: Losartan 25 MG TAB PO SCH (10:39)
[2021-04-01] MEDS: Acetaminophen 325 MG TAB PO PRN (10:39)
[2021-04-01] MEDS: Senokot S 8.6-50 MG TAB PO PRN (11:43)
[2021-04-01] MEDS: Polyethylene Glycol 3350 17 GM Packet PO PRN (11:43)
[2021-04-01] MEDS ORDERED: Bisacodyl 5 MG TAB PO PRN (17:09)
[2021-04-01] MEDS: Atorvastatin Calcium 40 MG TAB PO SCH (20:15)
[2021-04-02] MEDS: Alogliptin 25 MG TAB PO SCH (08:16)
[2021-04-02] MEDS: Benztropine 1 MG TAB PO SCH (08:17)
[2021-04-02] MEDS: Artificial Tear Sol 15 ML BOT EA EYE SCH ×3 (08:17→21:19)
[2021-04-02] MEDS: Cyanocobalamin (Vitamin B-12) 1,000 MCG TAB PO SCH (08:17)
[2021-04-02] MEDS: Aspirin 325 mg Enteric Coated Tablet PO SCH (08:17)
[2021-04-02] MEDS: Famotidine 20 MG TAB PO SCH ×2 (08:18→21:20)
[2021-04-02] MEDS: hydrOXYzine 25 MG TAB PO SCH ×2 (08:18→21:22)
[2021-04-02] MEDS: Fluticasone Propionate Nasal Spray 16 gm Bottle NASAL SCH (08:18)
[2021-04-02] MEDS: FLUoxetine HCl 10 MG CAP PO SCH (08:18)
[2021-04-02] MEDS: Losartan 25 MG TAB PO SCH (08:19)
[2021-04-02] MEDS: Polyethylene Glycol 3350 17 GM Packet PO PRN (08:19)
[2021-04-02] MEDS: Acetaminophen 325 MG TAB PO PRN (08:19)
[2021-04-02] MEDS: cefTRIAXone\\ROCEPHIN 1 GM in Sodium Chloride 0.9% 100 ML IVPB SCH (11:41)
[2021-04-02] MEDS ORDERED: Cefdinir 300 MG CAP PO SCH (11:45)
[2021-04-02] MEDS ORDERED: Fleet Enema 133 ML BOT PR PRN (11:47)
[2021-04-02] MEDS ORDERED: Fleet Enema 133 ML BOT FS SCH (12:15)
[2021-04-02] MEDS: Cefdinir 300 MG CAP PO SCH (21:20)
[2021-04-02] MEDS: Atorvastatin Calcium 40 MG TAB PO SCH (21:21)
[2021-04-03 08:18] VITALS: BP 123/58; TEMP 98.4
[2021-04-03] MEDS: Famotidine 20 MG TAB PO SCH (08:25)
[2021-04-03] MEDS: FLUoxetine HCl 10 MG CAP PO SCH (08:25)
[2021-04-03] MEDS: Aspirin 325 mg Enteric Coated Tablet PO SCH (08:25)
[2021-04-03] MEDS: Cefdinir 300 MG CAP PO SCH (08:25)
[2021-04-03] MEDS: Losartan 25 MG TAB PO SCH (08:25)
[2021-04-03] MEDS: Benztropine 1 MG TAB PO SCH (08:25)
[2021-04-03] MEDS: Fluticasone Propionate Nasal Spray 16 gm Bottle NASAL SCH (08:26)
[2021-04-03] MEDS: hydrOXYzine 25 MG TAB PO SCH (08:26)
[2021-04-03] MEDS: Artificial Tear Sol 15 ML BOT EA EYE SCH ×2 (08:26→16:34)
[2021-04-03] MEDS: Cyanocobalamin (Vitamin B-12) 1,000 MCG TAB PO SCH (08:26)
[2021-04-03] MEDS: Alogliptin 25 MG TAB PO SCH (09:54)
== END 2021-04-03 15:45 | disposition home or self-care (01) | DRG 698 ==
LOC: ERS 10:33 → ERHOLD 12:25 → MSONC 17:26
PROVIDERS: ADMIT Hospitalist; ATTEND Internal Medicine
DX: T83.510A Infection and inflammatory reaction due to cystostomy catheter, initial encounter (principal); A41.9 Sepsis, unspecified organism; G93.41 Metabolic encephalopathy; N39.0 Urinary tract infection, site not specified; I69.354 Hemiplegia and hemiparesis following cerebral infarction affecting left non-dominant side; K56.7 Ileus, unspecified; I10 Essential (primary) hypertension; E11.9 Type 2 diabetes mellitus without complications; F31.9 Bipolar disorder, unspecified; E78.5 Hyperlipidemia, unspecified; J45.909 Unspecified asthma, uncomplicated; K59.00 Constipation, unspecified; Z20.822 Contact with and (suspected) exposure to COVID-19; Y84.6 Urinary catheterization as the cause of abnormal reaction of the patient, or of later complication, without mention of misadventure at the time of the procedure; N40.0 Benign prostatic hyperplasia without lower urinary tract symptoms; Z88.0 Allergy status to penicillin; I69.320 Aphasia following cerebral infarction; Z79.84 Long term (current) use of oral hypoglycemic drugs; Z79.82 Long term (current) use of aspirin; Z79.899 Other long term (current) drug therapy
CPT/HCPCS: 36415; 36416; 70450; 71045; 74018; 74178; 80048; 80053; 81003; 81015; 82550; 83605; 83690; 83735; 83880; 84484; 85007; 85025; 85027; 87040; 87077; 87086; 87186; 93005; J0696; J2405; J3370; J3490; J7120; U0002

== ENCOUNTER 2021-05-25 09:46 | Inpatient (IN) | payer MEDICARE, MEDICAID ==
[2021-05-25 10:11] LABS: #Eosinphils 0.2 thou/uL (0.0-0.7); #Lymphocytes 2.5 thou/uL (1.20-3.40); #Monocytes 0.6 thou/uL (0.11-0.59); #Neutrophils 4.8 thou/uL (1.40-6.50); %Basophils 0.5 % (0.0-1.0); %Eosinophils 2.2 % (0.0-10.0); %Lymphocytes 31.1 % (21.0-51.0); %Monocytes 7.7 % (0.0-10.0); %Neutrophils 58.5 % (42.0-75.0); Hemoglobin 13.2 g/dL (14.0-18.0); Mean Corpuscular HGB CONC 32.9 g/dL (32.0-36.0); Mean Corpuscular Hemoglobin 33.4 pg (27.0-31.0); Mean Platelet Volume 6.3 fL (7.4-10.4); Platelet Count 290 thou/uL (130-400); RBC Distribution Width 11.3 % (11.5-14.5); Red Blood Cell (RBC) Count 3.94 mill/uL (4.70-6.10); White Blood Cell (WBC) Count 8.1 thou/uL (4.8-10.8)
[2021-05-25 10:21] LABS: INR-International Normal Ratio 0.9; PTT 32.6 sec (22.9-36.1); Prothrombin Time 12.7 sec (12.0-14.7)
[2021-05-25 10:27] LABS: ALT (SGPT) 11 U/L (8-55); AST (SGOT) 14 U/L (5-34); Alkaline Phosphatase 132 U/L (40-110); Anion Gap 19 mmol/L (10-20); BUN (Urea Nitrogen) 11 mg/dL (8.4-25.7); Bilirubin, Total 0.2 mg/dL (0.2-1.2); Calc. Creatinine Clearance 0 mL/min (70-130); Calcium 8.6 mg/dL (7.8-10.44); Carbon Dioxide 16 mmol/L (23-31); Chloride 107 mmol/L (98-107); Globulin 2.7 g/dL (2.4-3.5); Glucose 151 mg/dL (80-115); Potassium 4.5 mmol/L (3.5-5.1); Protein, Total 6.7 g/dL (5.8-8.1); Sodium 137 mmol/L (136-145)
[2021-05-25] MEDS ORDERED: Fluticasone Propionate Nasal Spray 16 gm Bottle NASAL PRN (11:46)
[2021-05-25] MEDS ORDERED: Polyethylene Glycol 3350 17 GM Packet PO PRN (11:46)
[2021-05-25] MEDS ORDERED: Milk Of Magnesia 30 ML UDCUP PO PRN (11:46)
[2021-05-25] MEDS ORDERED: Fleet Enema 133 ML BOT PR PRN (11:46)
[2021-05-25] MEDS ORDERED: Docusate 100 MG CAP PO PRN (11:46)
[2021-05-25] MEDS ORDERED: Non-Formulary Item 1 EACH (Linaclotide [Linzess] 145 MCG Capsule) PO PRN (11:46)
[2021-05-25] MEDS ORDERED: Phenazopyridine HCl 100 MG TAB PO PRN (11:46)
[2021-05-25] MEDS ORDERED: Meloxicam 7.5 MG TAB PO PRN (11:49)
[2021-05-25] MEDS ORDERED: hydrOXYzine 25 MG TAB PO PRN (12:05)
[2021-05-25 12:54] LABS: Bacteria/HPF 2+ HPF (None Seen); Bilirubin Negative (Negative); Blood, Urine Negative (Negative); Clarity Clear (Clear); Glucose, Urine (Dipstick) Normal (Negative); Ketone, Urine Negative (Negative); Leukocyte 500 Leu/uL (Negative); Nitrite Negative (Negative); Protein, Urine (Dipstick) Negative (Neg-Trace); RBC/HPF 0-3 HPF (0-3); Specific Gravity, Urine 1.034 (1.002-1.036); Squamous Epithelial None Seen HPF (0-3); Urobilinogen Normal mg/dL (Less than 2); WBC/HPF 21-50 HPF (0-3); pH, Urine 7.5 (5.0-9.0)
[2021-05-25] MEDS ORDERED: Iopamidol-370 76% 500 ML 1 ML ONE (12:57)
[2021-05-25] MEDS ORDERED: cefTRIAXone\\ROCEPHIN 1 GM in Sodium Chloride 0.9% 100 ML IVPB SCH (15:00)
[2021-05-25] MEDS ORDERED: Cefepime 1 GM VIAL ONE (17:04)
[2021-05-25] MEDS: Cefepime 1 GM in Sodium Chloride 0.9% 100 ML IVPB SCH (17:13)
[2021-05-25] MEDS: metFORMIN 500 MG TAB PO SCH (17:13)
[2021-05-25] MEDS: Carbidopa/Levodopa 10-100 mg Tablet PO SCH ×2 (17:13→20:35)
[2021-05-25 19:12] LABS: SARS-CoV-2 NAA Rapid Test Not Detected (NotDetected)
[2021-05-25 19:55] VITALS: BMI 20.7
[2021-05-25] MEDS: Atorvastatin Calcium 40 MG TAB PO SCH (20:35)
[2021-05-26] MEDS ORDERED: Acetaminophen 325 MG TAB PO PRN (03:36)
[2021-05-26] MEDS: Cefepime 1 GM in Sodium Chloride 0.9% 100 ML IVPB SCH ×2 (04:22→16:58)
[2021-05-26] MEDS: metFORMIN 500 MG TAB PO SCH ×2 (10:33→14:25)
[2021-05-26] MEDS: Cyanocobalamin (Vitamin B-12) 1,000 MCG TAB PO SCH (10:33)
[2021-05-26] MEDS: Cholecalciferol 1,000 UNITS (25 MCG) TAB PO SCH (10:33)
[2021-05-26] MEDS: Alogliptin 25 MG TAB PO SCH (10:34)
[2021-05-26] MEDS: Furosemide 20 MG TAB PO SCH (10:34)
[2021-05-26] MEDS: Aspirin Chewable 81 MG TAB PO SCH (10:34)
[2021-05-26] MEDS: Carbidopa/Levodopa 10-100 mg Tablet PO SCH ×3 (10:35→20:48)
[2021-05-26] MEDS: FLUoxetine HCl 10 MG CAP PO SCH (10:35)
[2021-05-26] MEDS: Losartan 25 MG TAB PO SCH (10:35)
[2021-05-26] MEDS: Polyvinyl Alcohol 1.4%/Povidone 0.6% Opth Drops EA EYE SCH (10:47)
[2021-05-26] MEDS: Atorvastatin Calcium 40 MG TAB PO SCH (20:49)
[2021-05-27] MEDS: Cefepime 1 GM in Sodium Chloride 0.9% 100 ML IVPB SCH ×2 (04:53→18:23)
[2021-05-27] MEDS: Carbidopa/Levodopa 10-100 mg Tablet PO SCH ×3 (09:17→20:34)
[2021-05-27] MEDS: metFORMIN 500 MG TAB PO SCH ×2 (09:17→16:07)
[2021-05-27] MEDS: Aspirin Chewable 81 MG TAB PO SCH (09:17)
[2021-05-27] MEDS: Cholecalciferol 1,000 UNITS (25 MCG) TAB PO SCH (09:17)
[2021-05-27] MEDS: Furosemide 20 MG TAB PO SCH (09:17)
[2021-05-27] MEDS: Cyanocobalamin (Vitamin B-12) 1,000 MCG TAB PO SCH (09:17)
[2021-05-27] MEDS: Losartan 25 MG TAB PO SCH (09:18)
[2021-05-27] MEDS: FLUoxetine HCl 10 MG CAP PO SCH (09:19)
[2021-05-27] MEDS: Polyvinyl Alcohol 1.4%/Povidone 0.6% Opth Drops EA EYE SCH (09:19)
[2021-05-27] MEDS: Alogliptin 25 MG TAB PO SCH (09:20)
[2021-05-27] MEDS ORDERED: HumaLOG 300 UNITS/3 ML VIAL SC PRN (10:11)
[2021-05-27] MEDS ORDERED: Dextrose 50% Abboject 50 ML SYRINGE SLOW IVP PRN (10:11)
[2021-05-27] MEDS ORDERED: Dextrose 5% in Water 1,000 ML IV PRN (10:11)
[2021-05-27] MEDS: Atorvastatin Calcium 40 MG TAB PO SCH (20:33)
[2021-05-28] MEDS: Cefepime 1 GM in Sodium Chloride 0.9% 100 ML IVPB SCH (05:00)
[2021-05-28] MEDS: FLUoxetine HCl 10 MG CAP PO SCH (09:06)
[2021-05-28] MEDS: Aspirin Chewable 81 MG TAB PO SCH (09:06)
[2021-05-28] MEDS: Polyvinyl Alcohol 1.4%/Povidone 0.6% Opth Drops EA EYE SCH (09:06)
[2021-05-28] MEDS: Alogliptin 25 MG TAB PO SCH (09:06)
[2021-05-28] MEDS: Cholecalciferol 1,000 UNITS (25 MCG) TAB PO SCH (09:07)
[2021-05-28] MEDS: Furosemide 20 MG TAB PO SCH (09:07)
[2021-05-28] MEDS: metFORMIN 500 MG TAB PO SCH (09:07)
[2021-05-28] MEDS: Losartan 25 MG TAB PO SCH (09:08)
[2021-05-28] MEDS: Cyanocobalamin (Vitamin B-12) 1,000 MCG TAB PO SCH (09:08)
[2021-05-28] MEDS: Carbidopa/Levodopa 10-100 mg Tablet PO SCH ×2 (09:08→15:03)
[2021-05-28 12:11] VITALS: TEMP 98.1
[2021-05-28 14:55] VITALS: BP 128/67
== END 2021-05-28 15:36 | DRG 699 ==
LOC: ERS 09:46 → ERHOLD 11:52 → NEURO 19:28 → OBSVTOIN 05-27 14:59
PROVIDERS: ADMIT Family Medicine; ATTEND Hospitalist
PROC: 4A10X4Z Monitoring of Central Nervous Electrical Activity, External Approach (ICD-10-PCS; principal; 2021-05-26)
DX: T83.510A Infection and inflammatory reaction due to cystostomy catheter, initial encounter (principal); N39.0 Urinary tract infection, site not specified; I69.354 Hemiplegia and hemiparesis following cerebral infarction affecting left non-dominant side; G20 Parkinson's disease; N40.0 Benign prostatic hyperplasia without lower urinary tract symptoms; E78.5 Hyperlipidemia, unspecified; E11.9 Type 2 diabetes mellitus without complications; I10 Essential (primary) hypertension; J45.909 Unspecified asthma, uncomplicated; K21.9 Gastro-esophageal reflux disease without esophagitis; E78.00 Pure hypercholesterolemia, unspecified; W19.XXXA Unspecified fall, initial encounter; F41.9 Anxiety disorder, unspecified; F31.9 Bipolar disorder, unspecified; Z88.0 Allergy status to penicillin; Z88.8 Allergy status to other drugs, medicaments and biological substances; Z79.899 Other long term (current) drug therapy; Z79.84 Long term (current) use of oral hypoglycemic drugs; Z79.82 Long term (current) use of aspirin; Y92.129 Unspecified place in nursing home as the place of occurrence of the external cause; Z20.822 Contact with and (suspected) exposure to COVID-19; Y83.8 Other surgical procedures as the cause of abnormal reaction of the patient, or of later complication, without mention of misadventure at the time of the procedure
CPT/HCPCS: 36416; 70450; 70496; 70498; 71045; 80053; 81003; 81015; 84484; 85025; 85610; 85730; 93005; 94760; 95816; 95819; 95957; 96365; 96366; G0378; J0692; J3490; Q9967; U0002

== ENCOUNTER 2021-11-09 13:26 | Emergency (ER) | payer MEDICARE, MEDICAID ==
[~2021-11-09 13:26] MED LIST changes: -Iopamidol 370 76% 100 ML VIAL ONE; +Iopamidol-370 76% 500 ML 1 ML ONE
[2021-11-09 14:20] LABS: #Eosinphils 0.2 thou/uL (0.0-0.7); #Lymphocytes 1.9 thou/uL (1.20-3.40); #Monocytes 0.7 thou/uL (0.11-0.59); #Neutrophils 3.9 thou/uL (1.40-6.50); %Basophils 0.7 % (0.0-1.0); %Lymphocytes 28.3 % (21.0-51.0); Hemoglobin 11.2 g/dL (14.0-18.0); Mean Corpuscular HGB CONC 32.6 g/dL (32.0-36.0); Mean Corpuscular Hemoglobin 31.5 pg (27.0-31.0); Mean Corpuscular Volume 96.8 fL (78.0-98.0); Mean Platelet Volume 7.8 fL (7.4-10.4); Platelet Count 267 thou/uL (130-400); RBC Distribution Width 12.1 % (11.5-14.5); Red Blood Cell (RBC) Count 3.54 mill/uL (4.70-6.10); White Blood Cell (WBC) Count 6.8 thou/uL (4.8-10.8)
[2021-11-09 14:40] LABS: ALT (SGPT) 13 U/L (8-55); AST (SGOT) 15 U/L (5-34); Albumin 3.9 g/dL (3.4-4.8); Alkaline Phosphatase 109 U/L (40-110); Anion Gap 12 mmol/L (10-20); BUN (Urea Nitrogen) 16 mg/dL (8.4-25.7); Bilirubin, Total 0.2 mg/dL (0.2-1.2); Calc. Creatinine Clearance 0 mL/min (70-130); Calcium 8.6 mg/dL (7.8-10.44); Carbon Dioxide 24 mmol/L (23-31); Chloride 104 mmol/L (98-107); Estimated GFR 89; Glucose 288 mg/dL (80-115); Lipase 31 U/L (8-78); Potassium 4.4 mmol/L (3.5-5.1); Protein, Total 6.9 g/dL (5.8-8.1); Sodium 136 mmol/L (136-145)
[2021-11-09 16:36] LABS: Bacteria/HPF 4+ HPF (None Seen); Bilirubin Negative (Negative); Blood, Urine Trace (Negative); Clarity Turbid (Clear); Glucose, Urine (Dipstick) 500 mg/dL (Negative); Ketone, Urine Negative (Negative); Leukocyte 500 Leu/uL (Negative); Nitrite 2+ (Negative); Protein, Urine (Dipstick) Negative (Neg-Trace); Specific Gravity, Urine 1.016 (1.002-1.036); Squamous Epithelial None Seen HPF (0-3); Triple Phosphate Crystal 1+ HPF (None Seen); Urobilinogen Normal mg/dL (Less than 2)
[2021-11-09] MEDS ORDERED: Ciprofloxacin 500 MG TAB ONE (18:28)
[2021-11-09] MEDS ORDERED: Nitrofurantoin Monohyd/M-Cryst 100 MG CAP PO SCH (19:00)
== END 2021-11-09 23:00 ==
LOC: ERS 13:26
DX: N39.0 Urinary tract infection, site not specified (principal); R60.0 Localized edema; N40.0 Benign prostatic hyperplasia without lower urinary tract symptoms; E78.00 Pure hypercholesterolemia, unspecified; E11.9 Type 2 diabetes mellitus without complications; I10 Essential (primary) hypertension; K21.9 Gastro-esophageal reflux disease without esophagitis; Z86.73 Personal history of transient ischemic attack (TIA), and cerebral infarction without residual deficits; Z79.82 Long term (current) use of aspirin; Z79.899 Other long term (current) drug therapy; Z79.84 Long term (current) use of oral hypoglycemic drugs
CPT/HCPCS: 36415; 74018; 74177; 80053; 81001; 83690; 84484; 85025; 87077; 87086; 93005; Q9967

== ENCOUNTER 2022-04-01 15:40 | Emergency (ER) | payer MEDICARE, MEDICAID ==
[2022-04-01 16:45] LABS: #Basophils 0.1 thou/uL (0.0-0.2); #Eosinphils 0.1 thou/uL (0.0-0.7); #Monocytes 0.6 thou/uL (0.11-0.59); #Neutrophils 4.3 thou/uL (1.40-6.50); %Basophils 0.9 % (0.0-1.0); %Lymphocytes 27.8 % (21.0-51.0); %Monocytes 8.3 % (0.0-10.0); %Neutrophils 61.1 % (42.0-75.0); Hemoglobin 12.3 g/dL (14.0-18.0); Mean Corpuscular HGB CONC 33.9 g/dL (32.0-36.0); Mean Corpuscular Volume 94.2 fl (78.0-98.0); Mean Platelet Volume 7.3 fL (7.4-10.4); Platelet Count 221 10x3/uL (130-400); RBC Distribution Width 12.2 % (11.5-14.5); Red Blood Cell (RBC) Count 3.85 mill/uL (4.70-6.10); White Blood Cell (WBC) Count 7.1 10x3/uL (4.8-10.8)
[2022-04-01 17:14] LABS: Bacteria/HPF 3+ HPF (None Seen); Bilirubin Negative (Negative); Blood, Urine Negative (Negative); Clarity Turbid (Clear); Glucose, Urine (Dipstick) 500 mg/dL (Negative); Ketone, Urine Negative (Negative); Leukocyte 500 Leu/uL (Negative); Nitrite 2+ (Negative); Protein, Urine (Dipstick) 30 mg/dL (Neg-Trace); RBC/HPF 0-3 HPF (0-3); Specific Gravity, Urine 1.019 (1.002-1.036); Squamous Epithelial 0-3 HPF (0-3); Urobilinogen Normal mg/dL (Less than 2); pH, Urine 8.5 (5.0-9.0)
[2022-04-01 17:28] LABS: ALT (SGPT) 15 U/L (8-55); AST (SGOT) 17 U/L (5-34); Albumin 3.7 g/dL (3.4-4.8); Alkaline Phosphatase 104 U/L (40-110); Anion Gap 15 mmol/L (10-20); BUN (Urea Nitrogen) 18 mg/dL (8.4-25.7); Bilirubin, Total 0.3 mg/dL (0.2-1.2); Calc. Creatinine Clearance 0 mL/min (70-130); Carbon Dioxide 21 mmol/L (23-31); Chloride 104 mmol/L (98-107); Estimated GFR 86; Globulin 3.1 g/dL (2.4-3.5); Glucose 255 mg/dL (83-110); Potassium 4.5 mmol/L (3.5-5.1); Protein, Total 6.8 g/dL (5.8-8.1); Sodium 135 mmol/L (136-145)
== END 2022-04-01 21:08 ==
LOC: ERS 15:40
DX: T83.091A Other mechanical complication of indwelling urethral catheter, initial encounter (principal); E86.0 Dehydration; R82.71 Bacteriuria; E11.9 Type 2 diabetes mellitus without complications; E78.5 Hyperlipidemia, unspecified; I10 Essential (primary) hypertension; K21.9 Gastro-esophageal reflux disease without esophagitis; Z79.899 Other long term (current) drug therapy
CPT/HCPCS: 36415; 74176; 80053; 81003; 81015; 83605; 83880; 85025; 87040; 87070; 87077; 87086; 87186; 87205; 96360

== ENCOUNTER 2022-12-22 01:57 | Emergency (ER) | payer MEDICARE, MEDICAID ==
[2022-12-22] MEDS ORDERED: Morphine 4 MG/ML VIAL ONE (03:01)
== END 2022-12-22 05:52 | disposition home or self-care (01) ==
LOC: ERS 01:57
DX: S22.32XA Fracture of one rib, left side, initial encounter for closed fracture (principal); M79.605 Pain in left leg; E11.9 Type 2 diabetes mellitus without complications; I10 Essential (primary) hypertension; E78.5 Hyperlipidemia, unspecified; K21.9 Gastro-esophageal reflux disease without esophagitis; E03.9 Hypothyroidism, unspecified; Z79.82 Long term (current) use of aspirin; Z79.899 Other long term (current) drug therapy; Z86.73 Personal history of transient ischemic attack (TIA), and cerebral infarction without residual deficits; Z79.84 Long term (current) use of oral hypoglycemic drugs; W18.30XA Fall on same level, unspecified, initial encounter
CPT/HCPCS: 70450; 72125; 72170; 96372; J2270

== ENCOUNTER 2022-12-27 21:55 | Emergency (ER) | payer MEDICARE, MEDICAID ==
[~2022-12-27 21:55] MED LIST changes: -Iopamidol-370 76% 500 ML 1 ML ONE; +Iopamidol-370 76% 500 ML MDV (1 ML CHARGE) ONE
[2022-12-27 22:42] LABS: #Basophils 0.1 thou/uL (0.0-0.2); #Eosinphils 0.1 thou/uL (0.0-0.7); #Monocytes 0.7 thou/uL (0.11-0.59); #Neutrophils 8.3 thou/uL (1.40-6.50); %Basophils 0.5 % (0.0-1.0); %Eosinophils 0.9 % (0.0-10.0); %Lymphocytes 12.1 % (21.0-51.0); %Monocytes 6.3 % (0.0-10.0); %Neutrophils 79.9 % (42.0-75.0); Hematocrit 37.8 % (42.0-52.0); Hemoglobin 12.8 g/dL (14.0-18.0); Mean Corpuscular HGB CONC 33.9 g/dL (32.0-36.0); Mean Corpuscular Hemoglobin 32.2 pg (27.0-31.0); Mean Corpuscular Volume 95.2 fl (78.0-98.0); Mean Platelet Volume 9.5 fL (7.4-10.4); Platelet Count 292 10x3/uL (130-400); RBC Distribution Width 12.5 % (11.5-14.5); Red Blood Cell (RBC) Count 3.97 mill/uL (4.70-6.10); White Blood Cell (WBC) Count 10.4 10x3/uL (4.8-10.8)
[2022-12-27 23:06] LABS: ALT (SGPT) 11 U/L (8-55); AST (SGOT) 18 U/L (5-34); Albumin 4.7 g/dL (3.4-4.8); Alkaline Phosphatase 91 U/L (40-110); Anion Gap 16 mmol/L (10-20); BUN (Urea Nitrogen) 22 mg/dL (8.4-25.7); Bilirubin, Total 0.5 mg/dL (0.2-1.2); Calc. Creatinine Clearance 0 mL/min (70-130); Calcium 9.6 mg/dL (7.8-10.44); Carbon Dioxide 18 mmol/L (23-31); Chloride 105 mmol/L (98-107); Estimated GFR 58; Glucose 211 mg/dL (83-110); Lipase 20 U/L (8-78); Potassium 3.9 mmol/L (3.5-5.1); Protein, Total 7.7 g/dL (5.8-8.1); Sodium 135 mmol/L (136-145)
[2022-12-27 23:09] LABS: Troponin I Less than 0.010 ng/mL (< 0.028)
[2022-12-28 00:06] LABS: INR-International Normal Ratio 1.1; Prothrombin Time 14.8 sec (12.0-14.7)
[2022-12-28 00:07] LABS: PTT 25.5 sec (22.9-36.1)
[2022-12-28] MEDS ORDERED: Haloperidol Lactate 5 MG/ML VIAL ONE (01:12)
[2022-12-28] MEDS ORDERED: LORazepam 2 MG/ML SYR.(CARPUJECT) ONE (01:14)
[2022-12-28 03:16] LABS: Bacteria/HPF 4+ HPF (None Seen); Bilirubin Negative (Negative); Blood, Urine Trace (Negative); CAUTI Indications for Culture Alt mental st,lethar; Clarity Clear (Clear); Glucose, Urine (Dipstick) Normal (Negative); Ketone, Urine Negative (Negative); Leukocyte 250 Leu/uL (Negative); Nitrite 2+ (Negative); Protein, Urine (Dipstick) 10 mg/dL (Neg-Trace); Squamous Epithelial None Seen HPF (0-3); Urobilinogen Normal mg/dL (Less than 2); WBC/HPF 21-50 HPF (0-3)
[2022-12-28 03:19] LABS: Urine Culture Reflex Yes Yes
[2022-12-28 03:34] LABS: SARS-CoV-2 NAA Rapid Test Not Detected (NotDetected)
== END 2022-12-28 05:16 ==
LOC: ERS 21:55
DX: F03.911 Unspecified dementia, unspecified severity, with agitation (principal); E11.9 Type 2 diabetes mellitus without complications; E78.5 Hyperlipidemia, unspecified; I10 Essential (primary) hypertension; K21.9 Gastro-esophageal reflux disease without esophagitis; Z20.822 Contact with and (suspected) exposure to COVID-19
CPT/HCPCS: 0240U; 71045; 74177; 80053; 81001; 83605; 83690; 84484; 85025; 85610; 85730; 87040; 87086; 93005; 96360; 96361; 96372; 99285; J2060; 36415; J1630; Q9967